=== PATIENT | male | born 1945 | race Caucasian/White ===

== ENCOUNTER 2021-11-17 10:17 | Emergency (ER) | payer OTHER, SELFPAY ==
[2021-11-17 10:23] VITALS: BP 166/90; PULSE 71; RESP 16; TEMP 36.4; O2SAT 100
--- NOTE | 2021-11-17 10:44 | ED.EAR ---
HPI - Ear Problem General Chief complaint: Ear Stated complaint: EAR ACHE Time Seen by Provider: 11/17/21 10:44 Source: patient, RN notes reviewed and old records reviewed Mode of arrival: ambulatory Limitations: no limitations History of Present Illness HPI Narrative: 76-year-old male presents to the [facility] with yellow thick drainage, pain and inflammation to the left ear. Patient states he saw a Dr Ogden last Tuesday at the [place]. States the doctor perforated his ear to drain fluid behind the eardrum. Patient states that 2 to 3 days ago it turned yellow, thick and pain increase. Has been taken ibuprofen. States she tried calling the doctor's office but is only there on Wednesdays and could not wait till tomorrow. Scheduled for a CT for his chronic ear pain on 23 November Denies any fevers, nausea, vomiting. No dizziness or vertigo symptoms. MD Complaint: ear pain and ear discharge Location: left ear Duration: constant Severity: mild Related Data Home Medications Medication Instructions Recorded Confirmed albuterol sulfate 90 mcg/actuation 2 puff INHALATION Q4H gm 12/05/19 09/17/21 aerosol inhaler cholecalciferol (vitamin D3) 25 1,000 unit PO DAILY 12/05/19 09/17/21 mcg (1,000 unit) capsule epinephrine 0.3 mg/0.3 mL 0.3 mg IM ONCE 12/05/19 09/17/21 injection, auto-injector ropinirole 0.5 mg tablet 0.5 mg PO DAILY tablet 12/05/19 09/17/21 cyanocobalamin (vitamin B-12) 1,000 mcg PO DAILY cap 05/04/21 09/17/21 1,000 mcg capsule Zinc 50 mg DAILY 11/17/21 Allergies Allergy/AdvReac Type Severity Reaction Status Date / Time amoxicillin [From Augmentin] Allergy Severe Vomiting Verified 09/18/21 09:56 clavulanic acid Allergy Severe Vomiting Verified 09/18/21 09:56 [From Augmentin] bee pollen Allergy Unknown unknown Verified 09/18/21 09:56 clarithromycin Allergy Unknown uknown Verified 09/18/21 09:56 crab Allergy Unknown Hives Verified 09/18/21 09:56 nut - unspecified Allergy Unknown sesame Verified 09/18/21 09:56 seed oil and nuts sesame oil Allergy Unknown Anaphylactic Verified 09/18/21 09:56 Shock sesame seed Allergy Unknown Anaphylactic Verified 09/18/21 09:56 Shock shellfish derived Allergy Unknown Hives Verified 09/18/21 09:56 Review of Systems Review of Systems: All systems reviewed & are unremarkable except as noted in HPI and below Constitutional: Constitutional: Reports no additional constitutional complaints Eyes: Eyes: Reports no additional eye complaints ENT: Reports as per HPI Comments: Left ear pain Cardiovascular: Cardiovascular: Reports no additional cardiovascular complaints Respiratory: Respiratory: Reports no additional respiratory complaints Gastrointestinal: Gastrointestinal: Reports no additional gastrointestinal complaints Musculoskeletal: Musculoskeletal: Reports no additional musculoskeletal complaints Integumentary/Breasts: Skin/Breast: Reports system reviewed and no additional complaints, except as docu Neurologic: Reports system reviewed and no additional complaints, except as documented Psychiatric: Psychiatric: Reports no additional psychiatric complaints Allergic/Immunologic: Allergic/Immunologic: Reports no additional allergic/immunologic complaints PMF Past Medical History Medical History Hearing loss Hyperlipidemia Hypertension Surgical History Surgical History History of hemorrhoidectomy Family History Family History Mother Carcinoma of colon Father Family history of congestive heart failure Grandparent Diabetes mellitus Other Family history of malignant neoplasm Social History Social History Smoking packs per day: 2 Smoking cigarettes per day: 40.0 Years smoked: 40 Smoking pack-years: 80.00 Smoking status: Fo
== END 2021-11-17 11:07 | disposition home or self-care (01) ==
PROVIDERS: Emergency Provider Nurse Practitioner; PCP Internal Medicine
DX: H66.002 Acute suppurative otitis media without spontaneous rupture of ear drum, left ear (principal); H60.502 Unspecified acute noninfective otitis externa, left ear; Z87.891 Personal history of nicotine dependence; E78.5 Hyperlipidemia, unspecified; I10 Essential (primary) hypertension
CPT/HCPCS: 99213; G0463

== ENCOUNTER 2022-02-16 11:44 | Outpatient (CLI) | payer OTHER, SELFPAY ==
--- NOTE | ~2022-02-16 | XR_ITS ---
EXAMINATION: XR chest 2V EXAM DATE: 02/16/2022 12:00 INDICATION: R05.9 - Cough, Congestion For 7 Days. TECHNIQUE: Frontal and lateral projections of the chest obtained and reviewed. Comparison is made to prior examination from 01/04/2018. FINDINGS: Some scattered postinfectious residua unchanged. The lungs are otherwise clear. There are no pleural effusions. The cardiomediastinal silhouette is within normal limits. There is no pneumo thorax suspected. The bones and soft tissues are unremarkable. IMPRESSION: No acute cardiopulmonary findings. Reviewed, dictated and finalized at location B.
== END 2022-02-16 11:45 | disposition home or self-care (01) ==
LOC: ANHIMG 11:49
PROVIDERS: PCP Internal Medicine; Visit Provider Internal Medicine
DX: R05.9 Cough, unspecified (principal)
CPT/HCPCS: 71046

== ENCOUNTER 2023-02-20 08:42 | Emergency (ER) | payer OTHER, SELFPAY ==
--- NOTE | ~2023-02-20 | XR_ITS ---
EXAMINATION: XR chest 2V DATE: 02/20/2023 09:23 INDICATION: Cough and chest congestion. TECHNIQUE: Frontal and lateral views of the chest were obtained. COMPARISON: Chest 2 views 02/16/2022, chest CT 04/01/2017 FINDINGS: The lungs are hyperexpanded with lucencies, consistent with emphysema. Calcified left lung nodules and calcified mediastinal lymph nodes are consistent with old granulomatous disease. No pleur al effusion or pneumothorax. The heart size is normal. IMPRESSION: 1. Emphysema. Reviewed, dictated and finalized at location A. IMPRESSION: 1. Emphysema.
[2023-02-20 08:58] VITALS: BP 162/75; PULSE 84; RESP 16; TEMP 36.8; O2SAT 96
--- NOTE | 2023-02-20 09:10 | ED.URI ---
HPI - URI/Sore Throat General Chief Complaint: Upper Respiratory Infection Stated Complaint: Sinus/Cough Time Seen by Provider: 02/20/23 09:10 Source: patient Mode of arrival: ambulatory Limitations: no limitations History of Present Illness HPI Narrative: 77-year-old male with history of COPD presents with complaint of cough, nasal congestion for the past week. Reports shortness of breath with exertion. Has been doing home inhalers. States that he is out of his neb solution. Denies nausea vomiting diarrhea. Denies chest pain. Ambulatory with steady gait. Speaking in full sentences. Taking Mucinex and Flonase at home. Reports that he has a lot of postnasal drainage That is not improving with Mucinex. All systems reviewed and negative except as noted above. Related Data Home Medications Medication Instructions Recorded Confirmed cholecalciferol (vitamin D3) 25 1,000 unit PO DAILY 12/05/19 02/20/23 mcg (1,000 unit) capsule epinephrine 0.3 mg/0.3 mL 0.3 mg IM ONCE 12/05/19 02/20/23 injection, auto-injector (EpiPen 2-Gareth) ropinirole 0.5 mg tablet 0.5 mg PO DAILY 12/05/19 02/20/23 Zinc 50 mg DAILY 11/17/21 02/20/23 albuterol sulfate 90 mcg/actuation 2 puff inhalation Q4H PRN 12/16/21 02/20/23 aerosol inhaler (Proventil HFA) Shortness Of Breath Allergies Allergy/AdvReac Type Severity Reaction Status Date / Time amoxicillin [From Augmentin] Allergy Severe Vomiting Verified 02/20/23 09:04 clavulanic acid Allergy Severe Vomiting Verified 02/20/23 09:04 [From Augmentin] bee pollen Allergy Unknown unknown Verified 02/20/23 09:04 clarithromycin Allergy Unknown uknown Verified 02/20/23 09:04 crab Allergy Unknown Hives Verified 02/20/23 09:04 nut - unspecified Allergy Unknown sesame Verified 02/20/23 09:04 seed oil and nuts sesame oil Allergy Unknown Anaphylactic Verified 02/20/23 09:04 Shock sesame seed Allergy Unknown Anaphylactic Verified 02/20/23 09:04 Shock shellfish derived Allergy Unknown Hives Verified 02/20/23 09:04 Review of Systems Review of Systems: CONSTITUTIONAL: Denies fever, chills, or sweats. EYES: Denies visual changes, redness, or discharge. ENT: reports rhinorrhea, congestion, postnasal drainage. Denies sore throat, or otalgia. CARDIOVASCULAR: Denies chest pain, palpitations, or edema. RESPIRATORY: Reports cough and dyspnea on exertion. GASTROINTESTINAL: Denies abdominal pain, nausea, vomiting, or diarrhea. GENITOURINARY: Denies dysuria or hematuria. SKIN: Denies rash or itching. MUSCULOSKELETAL: Denies back pain, joint pain, or myalgia. NEUROLOGIC: Denies headache, numbness, or weakness. PSYCHIATRIC: Denies anxiety or depression. All other systems reviewed are negative, except as documented in HPI. FORMERLY [facility], [facility] Past Medical History Medical History (Updated 02/20/23 @ 10:21 by Linda Little NP) CKD (chronic kidney disease) COPD (chronic obstructive pulmonary disease) Diabetes Hearing loss Hyperlipidemia Hypertension DAPHNE (obstructive sleep apnea) Surgical History Surgical History History of hemorrhoidectomy Family History Family History Mother Carcinoma of colon Father Family history of congestive heart failure Grandparent Diabetes mellitus Other Family history of malignant neoplasm Social History Social History Smoking packs per day: 2 Smoking cigarettes per day: 40.0 Years smoked: 40 Smoking pack-years: 80.00 Smoking status: Former smoker Tobacco type: cigarettes Second hand tobacco smoke exposure: No Smoking end date: 03/21/97 Alcohol intake: current Drinks per week: 3 Substance use: never Substance use type: does not use Lack of Transportation: No Lack of Food: Never True Current Housing: I Have Housing [facility]
[2023-02-20] MEDS: predniSONE 20 MG TABLET 40 MG PO (09:41)
[2023-02-20] MEDS: IPRATROPIUM BR 0.02% INH SOLN 0.5 MG/2.5 ML VIAL INHALATION (09:42)
[2023-02-20] MEDS: ALBUTEROL SULFATE NEB 2.5 MG/3 ML INH INHALATION (09:42)
--- NOTE | 2023-02-20 09:45 | PC.NURSE ---
Breathing teaching started. Educated on use, technique, side effects.
== END 2023-02-20 10:30 | disposition home or self-care (01) ==
PROVIDERS: Emergency Provider Nurse Practitioner Family; PCP Physician Assistant
DX: J44.1 Chronic obstructive pulmonary disease with (acute) exacerbation (principal); Z87.891 Personal history of nicotine dependence; I12.9 Hypertensive chronic kidney disease with stage 1 through stage 4 chronic kidney disease, or unspecified chronic kidney disease; E11.22 Type 2 diabetes mellitus with diabetic chronic kidney disease; N18.9 Chronic kidney disease, unspecified; E78.5 Hyperlipidemia, unspecified; Z79.84 Long term (current) use of oral hypoglycemic drugs
CPT/HCPCS: 71046; 99213; G0463; J7512

== ENCOUNTER 2024-02-13 12:03 | Outpatient (CLI) | payer OTHER, SELFPAY ==
--- NOTE | ~2024-02-13 | XR_ITS ---
EXAMINATION: XR heel LT min 2V INDICATION: Left heel pain TECHNIQUE: Two views of the left calcaneus are obtained. COMPARISON: None available FINDINGS: No fracture, dislocation, or subluxation. A plantar calcaneal enthesophyte is noted. There is mild plantar soft tissue swelling of the foot. Accessory ossicles are noted near the base of the f ifth metatarsal. IMPRESSION: 1. Soft tissue swelling without acute osseous abnormality. Reviewed, dictated and finalized at location F.
== END 2024-02-13 12:04 | disposition home or self-care (01) ==
LOC: ANHIMG 12:05
PROVIDERS: PCP Physician Assistant; Visit Provider Physician Assistant
DX: M79.672 Pain in left foot (principal); M79.89 Other specified soft tissue disorders
CPT/HCPCS: 73650

== ENCOUNTER 2024-05-02 09:47 | Outpatient (CLI) | payer OTHER, SELFPAY ==
--- NOTE | ~2024-05-02 | XR_ITS ---
Clinical Indication: Bronchitis PA and lateral views of the chest: Comparison: 02/20/2023 Findings: Stable calcified left basilar granulomas. The lungs are otherwise clear, without evidence o f focal consolidation or pleural effusion. Stable calcified mediastinal lymph nodes are present. Card iomediastinal silhouette is within normal limits. Bones and soft tissues are unremarkable. Impression: No acute abnormality. Reviewed, dictated and finalized at location . Impression: No acute abnormality.
== END 2024-05-02 09:48 | disposition home or self-care (01) ==
LOC: ANHIMG 09:51
PROVIDERS: PCP Physician Assistant; Visit Provider Internal Medicine
DX: J40 Bronchitis, not specified as acute or chronic (principal)
CPT/HCPCS: 71046

== ENCOUNTER 2024-11-16 12:40 | Inpatient (IN) | payer OTHER, SELFPAY ==
--- NOTE | ~2024-11-16 | XR_ITS ---
XR chest 2V Ordering provider: Bala Wilson History: 79 years Male with . cough, dyspnea . Comparison: May 02, 2024 FINDINGS: MEDIASTINUM: The cardiac silhouette is not enlarged. LUNGS: No infiltrates, effusions or pneumothorax. Underlying emphysematous changes. Minimal atelectat ic changes in the lower lobes. Early pneumonia cannot be excluded. OTHER: No free air under the diaphragm. Degenerative changes of the spine. IMPRESSION: Minimal opacification in the lung bases which may indicate atelectasis. Early pneumonia is not exclud ed. Follow-up advised. Reviewed, dictated and finalized at location [facility] IMPRESSION: Minimal opacification in the lung bases which may indicate atelectasis. Early p neumonia is not excluded. Follow-up advised.
[2024-11-16 12:54] VITALS: BP 134/70; PULSE 93; RESP 20; TEMP 36.8; O2SAT 93
--- NOTE | 2024-11-16 16:03 | ED_ITS ---
HPI - SOB/Dyspnea General Chief Complaint: Shortness of Breath/Dyspnea <Bala Wilson PA-C - Last Filed: 11/16/24 16:30> Stated Complaint: sob, cough <Bala Wilson PA-C - Last Filed: 11/16/24 16:30> Time Seen by Provider: 11/16/24 23:12 <Bala Wilson PA-C - Last Filed: 11/16/24 16:30> Focused HPI: This is an 79-year-old male who presents to the ED for possible COPD exacerbation. Patient reports that he has had increased cough over the past few days and it is productive. Reports that he is getting little bit more winded when up and walking however he is able to make it across the room okay. Denies chest pain, leg swelling, palpitations, nausea, vomiting. Endorses chills but no recorded fevers. He did take a dose of Tylenol prior to arrival. States he has been taking his albuterol nebulizer as prescribed at home. No recent antibiotics GENERAL: Well-appearing, well-nourished, and in no acute distress. HEAD: Normocephalic, atraumatic. CHEST: Diffuse wheezes and rhonchi noted throughout the lungs. No overt respiratory distress. HEART: Regular rate and rhythm. NEURO: Alert and oriented x3. Patient screened in triage and initial orders placed. Additional care and disposition to be based upon diagnostic testing and treatment. <Bala Wilson PA-C - Last Filed: 11/16/24 16:30> Source: patient <Bala Wilson PA-C - Last Filed: 11/16/24 16:30> Mode of arrival: ambulatory <Bala Wilson PA-C - Last Filed: 11/16/24 16:30> Limitations: no limitations <UNIQUE Shen Last Filed: 11/16/24 16:30> History of Present Illness HPI Narrative: Agree with above HPI. <Iris Méndez PA-C - Last Filed: 11/17/24 02:46> Related Data Home Medications: Home Medications ?Medication ?Instructions ?Recorded ?Confirmed ?Last Taken ?Type cholecalciferol (vitamin D3) 25 1,000 unit PO DAILY 12/05/19 07/06/24 Unknown History mcg (1,000 unit) capsule epinephrine 0.3 mg/0.3 mL 0.3 mg IM ONCE 12/05/19 07/06/24 Unknown History injection, auto-injector (EpiPen 2-Gareth) ropinirole 0.5 mg tablet 0.5 mg PO DAILY 12/05/19 07/06/24 Unknown History Zinc 50 mg DAILY 11/17/21 07/06/24 Unknown History albuterol sulfate 90 mcg/actuation 2 puff inhalation Q4H PRN 12/16/21 07/06/24 Unknown History aerosol inhaler (Proventil HFA) Shortness Of Breath <Bala Wilson PA-C - Last Filed: 11/16/24 16:30> Allergies/Adverse Reactions: Allergies Allergy/AdvReac Type Severity Reaction Status Date / Time amoxicillin (From Augmentin) Allergy Severe Vomiting Verified 07/06/24 07:30 clavulanic acid (From Allergy Severe Vomiting Verified 07/06/24 07:30 Augmentin) bee pollen Allergy Unknown unknown Verified 07/06/24 07:30 clarithromycin Allergy Unknown uknown Verified 07/06/24 07:30 crab Allergy Unknown Hives Verified 07/06/24 07:30 nut - unspecified Allergy Unknown sesame Verified 07/06/24 07:30 seed oil and nuts sesame oil Allergy Unknown Anaphylactic Verified 07/06/24 07:30 Shock sesame seed Allergy Unknown Anaphylactic Verified 07/06/24 07:30 Shock shellfish derived Allergy Unknown Hives Verified 07/06/24 07:30 <Bala Wilson PA-C - Last Filed: 11/16/24 16:30> Review of Systems 2 Review of Systems: All systems reviewed & are unremarkable except as noted in HPI. <Iris Méndez PA-C - Last Filed: 11/17/24 02:46> All systems reviewed & are unremarkable except as noted in HPI and below < Iris Méndez PA-C - Last Filed: 11/17/24 02:46> PMFSH Past Medical History Medical History: Medical History Hearing loss Hyperlipidemia Hypertension Diabetes CKD (chronic kidney disease) DAPHNE (obstructive sleep apnea) COPD (chronic obstructive pulmonary disease) <Bala Wilson PA-C - Last Filed: 11/16/24 16:30> Surgical History Surgical History: Surgical History History of hemorrhoidectomy <Bala Wilson PA-C - Last Filed: 11/16/24 16:30> Family History Family History: Family History Mother Carcinoma of colon Father Family history of congestive heart failure Grandparent Diabetes mellitus Other Family history of malignant neoplasm <Bala Wilson PA-C - Last Filed: 11/16/24 16:30> Social History Social History: Social History Smoking packs per day: 2 Smoking cigarettes per day: 40.0 Years smoked: 40 Smoking pack-years: 80.00 Smoking status: Former smoker Tobacco type: cigarettes Second hand tobacco smoke exposure: No Smoking end date: 03/21/97 Alcohol intake: current Drinks per week: 3 Substance use: never Substance use type: does not use Lack of Transportation: No Lack of Food: Never True Current Housing: Decline to Answer Concerned About Future Housing: Decline to Answer Difficulty Paying Gas/Electric Bills: Decline to Answer Difficulty Paying for Meds: Decline to Answer Currently Unemployed: Decline to Answer Education: Decline to Answer Difficulty w/ Childcare or Family Care: Decline to Answer Living arrangements: with family Gender identity (if verbalized by the patient): Male <Bala Wilson PA-C - Last Filed: 11/16/24 16:30> Exam 2 Narrative: GENERAL: Elderly, mild ill appearing, well-nourished, non-toxic, in no acute distress. HEAD: Normocephalic, atraumatic. RESPIRATORY: Airway patent, respirations mildly tachypneic but no significant distress. Scattered rhonchi in bases manfred. Diffuse exp wheezing bilaterally, worse in R mid lung zone. CARDIOVASCULAR: Tachycardic with rhythm without murmurs, rubs, or gallops. MUSCULOSKELETAL: Moves all extremities. No gross deformities. Trace peripheral edema. No calf tenderness. SKIN: Warm, dry, normal color. NEURO: A&O X3. Speech clear. Cranial nerves II-XII grossly intact. Steady gait. No ataxic movements. PSYCHIATRIC: Appropriate mood and affect. Normal interaction. <UNIQUE Guthrie Last Filed: 11/17/24 02:46> Course Vital Signs Vital signs: Vital Signs Temperature 98.3 F 11/16/24 12:54 Pulse Rate 93 11/16/24 12:54 Respiratory Rate 20 11/16/24 12:54 Blood Pressure 134/70 11/16/24 12:54 Pulse Oximetry 93 11/16/24 12:54 Oxygen Delivery Room Air 11/16/24 12:54 Temperature 98.3 F 11/16/24 12:54 Pulse Rate 101 H 11/17/24 01:32 Respiratory Rate 18 11/17/24 01:32 Blood Pressure 171/93 H 11/17/24 00:04 Pulse Oximetry 90 11/17/24 00:04 Oxygen Delivery Nasal Cannula 11/17/24 00:04 Oxygen Flow Rate 2 11/17/24 00:04 <UNIQUE Shen Last Filed: 11/16/24 16:30> Vital Signs Temperature 98.3 F 11/16/24 12:54 Pulse Rate 93 11/16/24 12:54 Respiratory Rate 20 11/16/24 12:54 Blood Pressure 134/70 11/16/24 12:54 Pulse Oximetry 93 11/16/24 12:54 Oxygen Delivery Room Air 11/16/24 12:54 Temperature 98.3 F 11/16/24 12:54 Pulse Rate 101 H 11/17/24 01:32 Respiratory Rate 18 11/17/24 01:32 Blood Pressure 171/93 H 11/17/24 00:04 Pulse Oximetry 90 11/17/24 00:04 Oxygen Delivery Nasal Cannula 11/17/24 00:04 Oxygen Flow Rate 2 11/17/24 00:04 <UNIQUE Guthrie Last Filed: 11/17/24 02:46> MDM - SOB/Dyspnea MDM Narrative Medical decision making narrative: Patient presented to ED with several day history of productive cough, drainage, shortness of breath. Patient's vitals were stable upon arrival. Upon being walked back to the ED room from the waiting room, patient's oxygen saturation did drop significantly. He was saturating in the low 80s on room air. Placed on 2 L nasal cannula. He did admit to feeling very winded. O2 sats stabilized to 93-95% on 2L. Laboratory studies without leukocytosis. Stable electrolytes. Sodium slightly low at 133. Given fluids. Creatinine today 1.4. Appears consistent with previous records. Viral swabs are negative. EKG with sinus tachycardia, right bundle-branch block, no significant ST changes. Troponin is undetectable. Patient denying CP. BNP within normal range. D-dimer is age adjusted normal. Chest x-ray consistent with possible early pneumonia. I do feel this fits with patient's clinical picture. Blood cultures obtained. Patient started on Rocephin and azithromycin. He has tolerated Z-Gareth in the past. Was also given Solu-Medrol and hour long nebulizer treatment in the ED for likely concurrent COPD flare. Will be admitted for further evaluation and management. Discussed case with Dr. Toribio, hospitalist, accepted patient for admission. Patient in agreement with plan and need for admission. Med/tele, will continue to titrate down O2 as tolerated. <Iris Méndez PA-C - Last Filed: 11/17/24 02:46> Medical Records Attestation: I reviewed the patient's medical records. <Iris Méndez PA-C - Last Filed: 11/17/24 02:46> Lab Data Attestation: I reviewed the patient's lab results. <Iris Méndez PA-C - Last Filed: 11/17/24 02:46> Result diagrams: 11/16/24 18:49 11/16/24 18:49 <Bala Wilson PA-C - Last Filed: 11/16/24 16:30> Labs: Lab Results 11/16/24 11/16/24 11/16/24 Range/Units 18:49 18:49 18:49 WBC 6.2 (4.5-10.0) K/mm3 RBC 4.29 L (4.6-6.20) M/mm3 Hgb 12.3 L (14.0-18.0) g/dL Hct 38.3 L (42.0-52.0) % MCV 89.3 (80-100) fl MCH 28.7 (26-34) pg MCHC 32.1 (32-36) g/dl RDW 13.2 (11.5-14.5) % Plt Count 155 (150-375) k/mm3 MPV 9.2 (7.4-10.4) fl Immature Gran % (Auto) 0.5 (0-0.5) % Neut % (Auto) 64.8 (45.5-73.1) % Lymph % (Auto) 18.7 (18.3-44.2) % Hartley % (Auto) 14.4 H (2.6-8.5) % Eos % (Auto) 1.0 (0-4.4) % Baso % (Auto) 0.6 (0.2-1.2) % Lymph # (Auto) 1.16 (0.9-3.2) K/mm3 Hartley # (Auto) 0.9 H (0.1-0.6) K/mm3 Eos # (Auto) 0.1 (0-0.3) K/mm3 Baso # (Auto) 0.0 (0.0-0.1) K/mm3 Abs Immat Gran (auto) 0.03 (0.00-0.031) K/mm3 Absolute Neuts (auto) 4.0 (1.3-6.7) K/mm3 Absolute Nucleated RBC 0.000 (0.0-0.012) K/mm3 Nucleated RBC % 0.0 (0.0-0.2) % PT 14.6 (11.1-14.7) Seconds INR 1.1 APTT 25.3 (22.3-36.8) Seconds D-Dimer (<0.48) ug/mL Sodium 133 L (137-145) mmol/L Potassium 3.7 (3.4-5.0) mmol/L Chloride 99 (98-107) mmol/L Carbon Dioxide 32 H (22-30) mmol/L Anion Gap 2 L (4-12) mmol/L BUN 21 H (9-20) mg/dL Creatinine 1.40 H (0.7-1.3) mg/dL Estim Creat Clear Calc 39 ml/min Estimated GFR 49 L (59 - ) Glucose 112 H (65-110) mg/dL Calcium 8.6 (8.4-10.2) mg/dL Magnesium 2.2 Cancelled (1.6-2.3) mg/dL Total Bilirubin 0.7 (0.2-1.3) mg/dL AST 50 (17-59) U/L ALT 23 (6-50) U/L Alkaline Phosphatase 67 (38-126) U/L Troponin I < 0.012 Cancelled (0.000-0.034) ng/mL NT-Pro-B Natriuret Pep 167 H (19.9-100) pg/mL Total Protein 7.0 (6.3-8.2) g/dL Albumin 4.1 (3.5-5.1) g/dL Influenza A (RT-PCR) Negative (Negative) Influenza B (RT-PCR) Negative (Negative) RSV (RT-PCR) Negative (Negative) SARS-CoV-2 RNA (RT-PCR) Negative (Negative) 11/17/24 Range/Units 00:36 WBC (4.5-10.0) K/mm3 RBC (4.6-6.20) M/mm3 Hgb (14.0-18.0) g/dL Hct (42.0-52.0) % MCV (80-100) fl MCH (26-34) pg MCHC (32-36) g/dl RDW (11.5-14.5) % Plt Count (150-375) k/mm3 MPV (7.4-10.4) fl Immature Gran % (Auto) (0-0.5) % Neut % (Auto) (45.5-73.1) % Lymph % (Auto) (18.3-44.2) % Hartley % (Auto) (2.6-8.5) % Eos % (Auto) (0-4.4) % Baso % (Auto) (0.2-1.2) % Lymph # (Auto) (0.9-3.2) K/mm3 Hartley # (Auto) (0.1-0.6) K/mm3 Eos # (Auto) (0-0.3) K/mm3 Baso # (Auto) (0.0-0.1) K/mm3 Abs Immat Gran (auto) (0.00-0.031) K/mm3 Absolute Neuts (auto) (1.3-6.7) K/mm3 Absolute Nucleated RBC (0.0-0.012) K/mm3 Nucleated RBC % (0.0-0.2) % PT (11.1-14.7) Seconds INR APTT (22.3-36.8) Seconds D-Dimer 0.54 H (<0.48) ug/mL Sodium (137-145) mmol/L Potassium (3.4-5.0) mmol/L Chloride (98-107) mmol/L Carbon Dioxide (22-30) mmol/L Anion Gap (4-12) mmol/L BUN (9-20) mg/dL Creatinine (0.7-1.3) mg/dL Estim Creat Clear Calc ml/min Estimated GFR (59 - ) Glucose (65-110) mg/dL Calcium (8.4-10.2) mg/dL Magnesium (1.6-2.3) mg/dL Total Bilirubin (0.2-1.3) mg/dL AST (17-59) U/L ALT (6-50) U/L Alkaline Phosphatase (38-126) U/L Troponin I (0.000-0.034) ng/mL NT-Pro-B Natriuret Pep (19.9-100) pg/mL Total Protein (6.3-8.2) g/dL Albumin (3.5-5.1) g/dL Influenza A (RT-PCR) (Negative) Influenza B (RT-PCR) (Negative) RSV (RT-PCR) (Negative) SARS-CoV-2 RNA (RT-PCR) (Negative) <Blaa Wilson PA-C - Last Filed: 11/16/24 16:30> Lab Results 11/16/24 11/16/24 11/16/24 Range/Units 18:49 18:49 18:49 WBC 6.2 (4.5-10.0) K/mm3 RBC 4.29 L (4.6-6.20) M/mm3 Hgb 12.3 L (14.0-18.0) g/dL Hct 38.3 L (42.0-52.0) % MCV 89.3 (80-100) fl MCH 28.7 (26-34) pg MCHC 32.1 (32-36) g/dl RDW 13.2 (11.5-14.5) % Plt Count 155 (150-375) k/mm3 MPV 9.2 (7.4-10.4) fl Immature Gran % (Auto) 0.5 (0-0.5) % Neut % (Auto) 64.8 (45.5-73.1) % Lymph % (Auto) 18.7 (18.3-44.2) % Hartley % (Auto) 14.4 H (2.6-8.5) % Eos % (Auto) 1.0 (0-4.4) % Baso % (Auto) 0.6 (0.2-1.2) % Lymph # (Auto) 1.16 (0.9-3.2) K/mm3 Hartley # (Auto) 0.9 H (0.1-0.6) K/mm3 Eos # (Auto) 0.1 (0-0.3) K/mm3 Baso # (Auto) 0.0 (0.0-0.1) K/mm3 Abs Immat Gran (auto) 0.03 (0.00-0.031) K/mm3 Absolute Neuts (auto) 4.0 (1.3-6.7) K/mm3 Absolute Nucleated RBC 0.000 (0.0-0.012) K/mm3 Nucleated RBC % 0.0 (0.0-0.2) % PT 14.6 (11.1-14.7) Seconds INR 1.1 APTT 25.3 (22.3-36.8) Seconds D-Dimer (<0.48) ug/mL Sodium 133 L (137-145) mmol/L Potassium 3.7 (3.4-5.0) mmol/L Chloride 99 (98-107) mmol/L Carbon Dioxide 32 H (22-30) mmol/L Anion Gap 2 L (4-12) mmol/L BUN 21 H (9-20) mg/dL Creatinine 1.40 H (0.7-1.3) mg/dL Estim Creat Clear Calc 39 ml/min Estimated GFR 49 L (59 - ) Glucose 112 H (65-110) mg/dL Calcium 8.6 (8.4-10.2) mg/dL Magnesium 2.2 Cancelled (1.6-2.3) mg/dL Total Bilirubin 0.7 (0.2-1.3) mg/dL AST 50 (17-59) U/L ALT 23 (6-50) U/L Alkaline Phosphatase 67 (38-126) U/L Troponin I < 0.012 Cancelled (0.000-0.034) ng/mL NT-Pro-B Natriuret Pep 167 H (19.9-100) pg/mL Total Protein 7.0 (6.3-8.2) g/dL Albumin 4.1 (3.5-5.1) g/dL Influenza A (RT-PCR) Negative (Negative) Influenza B (RT-PCR) Negative (Negative) RSV (RT-PCR) Negative (Negative) SARS-CoV-2 RNA (RT-PCR) Negative (Negative) 11/17/24 Range/Units 00:36 WBC (4.5-10.0) K/mm3 RBC (4.6-6.20) M/mm3 Hgb (14.0-18.0) g/dL Hct (42.0-52.0) % MCV (80-100) fl MCH (26-34) pg MCHC (32-36) g/dl RDW (11.5-14.5) % Plt Count (150-375) k/mm3 MPV (7.4-10.4) fl Immature Gran % (Auto) (0-0.5) % Neut % (Auto) (45.5-73.1) % Lymph % (Auto) (18.3-44.2) % Hartley % (Auto) (2.6-8.5) % Eos % (Auto) (0-4.4) % Baso % (Auto) (0.2-1.2) % Lymph # (Auto) (0.9-3.2) K/mm3 Hartley # (Auto) (0.1-0.6) K/mm3 Eos # (Auto) (0-0.3) K/mm3 Baso # (Auto) (0.0-0.1) K/mm3 Abs Immat Gran (auto) (0.00-0.031) K/mm3 Absolute Neuts (auto) (1.3-6.7) K/mm3 Absolute Nucleated RBC (0.0-0.012) K/mm3 Nucleated RBC % (0.0-0.2) % PT (11.1-14.7) Seconds INR APTT (22.3-36.8) Seconds D-Dimer 0.54 H (<0.48) ug/mL Sodium (137-145) mmol/L Potassium (3.4-5.0) mmol/L Chloride (98-107) mmol/L Carbon Dioxide (22-30) mmol/L Anion Gap (4-12) mmol/L BUN (9-20) mg/dL Creatinine (0.7-1.3) mg/dL Estim Creat Clear Calc ml/min Estimated GFR (59 - ) Glucose (65-110) mg/dL Calcium (8.4-10.2) mg/dL Magnesium (1.6-2.3) mg/dL Total Bilirubin (0.2-1.3) mg/dL AST (17-59) U/L ALT (6-50) U/L Alkaline Phosphatase (38-126) U/L Troponin I (0.000-0.034) ng/mL NT-Pro-B Natriuret Pep (19.9-100) pg/mL Total Protein (6.3-8.2) g/dL Albumin (3.5-5.1) g/dL Influenza A (RT-PCR) (Negative) Influenza B (RT-PCR) (Negative) RSV (RT-PCR) (Negative) SARS-CoV-2 RNA (RT-PCR) (Negative) <Iris Méndez PA-C - Last Filed: 11/17/24 02:46> Imaging Data Attestation: I personally reviewed and interpreted this imaging study as follows: < Iris Méndez PA-C - Last Filed: 11/17/24 02:46> Radiologist's impression: ITS Impressions Chest X-Ray 11/16/24 17:00 IMPRESSION: Minimal opacification in the lung bases which may indicate atelectasis. Early pneumonia is not excluded. Follow-up advised. <Iris Méndez PA-C - Last Filed: 11/17/24 02:46> ECG Data EKG #1: Attestation: I personally reviewed and interpreted this ECG as follows: <Iris Méndez PA-C - Last Filed: 11/17/24 02:46> ECG completion date: 11/16/24 <UNIQUE Guthrie Last Filed: 11/17/24 02:46> ECG completion time: 23:30 <UNIQUE Guthrie Last Filed: 11/17/24 02:46> EKG Interpretation: tachycardia (103), sinus rhythm, non-specific ST changes and RBBB < UNIQUE Guthrie Last Filed: 11/17/24 02:46> Discharge Plan Discharge Clinical Impression: Pneumonia, Acute hypoxic respiratory failure, Acute exacerbation of chronic obstructive pulmonary disease (COPD) <UNIQUE Shen Last Filed: 11/16/24 16:30> Patient Disposition: Still a Patient <UNIQUE Shen Last Filed: 11/16/24 16:30> Condition: Stable <UNIQUE Shen Last Filed: 11/16/24 16:30> Patient Language: Honduran <UNIQUE Shen Last Filed: 11/16/24 16:30> Prescriptions: No Action Zinc 50 mg DAILY albuterol sulfate 2.5 mg /3 mL (0.083 %) solution for nebulization 2.5 mg inhalation Q6H PRN (Reason: shortness of breath or wheezing) Qty: 75 0RF ropinirole 0.5 mg tablet 0.5 mg PO DAILY epinephrine [EpiPen 2-Gareth] 0.3 mg/0.3 mL auto-injector 0.3 mg IM ONCE Rx Instructions: as a single dose cholecalciferol (vitamin D3) 25 mcg (1,000 unit) capsule 1,000 unit PO DAILY albuterol sulfate [Proventil HFA] 90 mcg/actuation HFA aerosol inhaler 2 puff INHALATION Q4H PRN (Reason: Shortness Of Breath) fluticasone propion-salmeterol [Wixela Inhub] 250-50 mcg/dose blister with device 1 inh inhalation BID Qty: 60 0RF levothyroxine 50 mcg tablet 50 mcg PO DAILY Qty: 90 1RF hydrochlorothiazide 25 mg tablet 25 mg PO DAILY Qty: 90 1RF metformin 500 mg tablet See Rx Instructions .ROUTE .COMPLEX Qty: 180 1RF Dose Instruction: TAKE 1 TABLET BY MOUTH TWICE A DAY WITH MORNING AND EVENING MEALS Rx Instructions: TAKE 1 TABLET BY MOUTH TWICE A DAY WITH MORNING AND EVENING MEALS lovastatin 20 mg tablet See Rx Instructions .ROUTE .COMPLEX Qty: 90 2RF Dose Instruction: TAKE 1 TABLET BY MOUTH EVERY DAY IN THE EVENING Rx Instructions: TAKE 1 TABLET BY MOUTH EVERY DAY IN THE EVENING <Bala Wilson PA-C - Last Filed: 11/16/24 16:30> Follow-up/Referrals: Shreya,Teodoro Smiley PA-C [Primary Care Provider] - <Bala Wilson PA-C - Last Filed: 11/16/24 16:30>
--- NOTE | 2024-11-16 16:04 | ECG_ITS ---
Test Date: 2024-11-16 23:30:03 Measurements Intervals [place] Rate: 103 P: 71 ND: 184 QRS: 11 QRSD: 138 T: 42 QT: 344 QTc: 451 Interpretive Statements SINUS TACHYCARDIA RIGHT BUNDLE BRANCH BLOCK [120+ ms QRS DURATION, UPRIGHT V1, 40+ ms S IN I/aVL/V4/V5/V6] ABNORMAL ECG Electronically Signed On 11-17-2024 08:29:50 MULTI NEEDLE MACHINE OPERATOR by Heladio Pennington M.D.
[2024-11-16 18:57] LABS: Basophils Percent Auto 0.6 % (0.2-1.2); Eosinophils Absolute Auto 0.1 K/mm3 (0-0.3); Hematocrit 38.3 % (42.0-52.0); Hemoglobin 12.3 g/dL (14.0-18.0); Immature Granulocyte Absolute 0.03 K/mm3 (0.00-0.031); Immature Granulocyte Percent A 0.5 % (0-0.5); Lymphocytes Absolute Auto 1.16 K/mm3 (0.9-3.2); Lymphocytes Percent Auto 18.7 % (18.3-44.2); Mean Corpuscular HGB Conc 32.1 g/dl (32-36); Mean Corpuscular Hemoglobin 28.7 pg (26-34); Mean Corpuscular Volume 89.3 fl (80-100); Mean Platelet Volume 9.2 fl (7.4-10.4); Monocytes Absolute Auto 0.9 K/mm3 (0.1-0.6); Monocytes Percent Auto 14.4 % (2.6-8.5); Neutrophils Percent Auto 64.8 % (45.5-73.1); Platelet Count Result 155 k/mm3 (150-375); Red Blood Count 4.29 M/mm3 (4.6-6.20); Red Cell Distribution Width 13.2 % (11.5-14.5); White Blood Count 6.2 K/mm3 (4.5-10.0)
[2024-11-16 19:09] LABS: Alanine Aminotransferase 23 U/L (6-50); Albumin Level 4.1 g/dL (3.5-5.1); Alkaline Phosphatase 67 U/L (38-126); Anion Gap 2 mmol/L (4-12); Aspartate Amino Transferase 50 U/L (17-59); Bilirubin,Total 0.7 mg/dL (0.2-1.3); Blood Urea Nitrogen 21 mg/dL (9-20); Calcium 8.6 mg/dL (8.4-10.2); Carbon Dioxide 32 mmol/L (22-30); Chloride 99 mmol/L (98-107); Estimated CRCL calculation 39 ml/min; Estimated Glomerular Filt Rate 49; Glucose 112 mg/dL (65-110); Magnesium 2.2 mg/dL (1.6-2.3); Potassium 3.7 mmol/L (3.4-5.0); Sodium 133 mmol/L (137-145)
[2024-11-16 19:11] LABS: INR 1.1; Prothrombin Time 14.6 Seconds (11.1-14.7)
[2024-11-16 19:12] LABS: Partial Thromboplastin Time 25.3 Seconds (22.3-36.8)
[2024-11-16 19:20] LABS: NT Pro B Type Natriuretic Pept 167 pg/mL (19.9-100); Troponin I < 0.012 ng/mL (0.000-0.034)
[2024-11-16 19:44] LABS: Influenza A QL RT-PCR Negative (Negative); Influenza B QL RT-PCR Negative (Negative); RSV RNA, RT-PCR Negative (Negative); SARS-CoV-2 RNA PCR Negative (Negative)
[2024-11-16 23:16] VITALS: BP 179/85; PULSE 104; RESP 8; O2SAT 91
[2024-11-17] VITALS (31 sets, daily range): BP systolic 118–171; BP diastolic 59–93; PULSE 94–122; RESP 11–25; TEMP 36.7–37; O2SAT 84–100; BMI 26.4
[2024-11-17] MEDS: LEVALBUTEROL NEB 1.25 MG/3 ML 2.5 MG INHALATION (00:20)
[2024-11-17] MEDS: IPRATROPIUM BR 0.02% INH SOLN 0.5 MG/2.5 ML VIAL 1.5 MG INHALATION (00:20)
[2024-11-17] MEDS: SODIUM CHLORIDE 0.9% IV 1,000 ML 999 ML IV CONT (00:38)
[2024-11-17] MEDS: methylPREDNISolone SOD SUCC 125 MG VIAL IV PUSH (00:39)
[2024-11-17 01:13] LABS: D Dimer 0.54 ug/mL (<0.48)
[2024-11-17] MEDS: AZITHROMYCIN 500 MG/NS 250 ML 500 MG/250 ML BAG 250 MG IVPB ×2 (02:04→20:54)
--- NOTE | 2024-11-17 02:41 | PM.IMHP ---
H&P: HPI History of Present Illness Date/Time: 11/17/24 02:41 Chief Complaint: Shortness of breath Narrative: This is an 79-year-old male with past medical history significant for COPD/emphysema, chronic respiratory failure, type 2 diabetes mellitus, hypertension, obstructive sleep apnea patient is on CPAP at nighttime. Patient presents to the emergency room due to worsening shortness of breath, sputum production, chills. Preliminary workup was significant for chest x-ray with opacifications. Patient has been admitted for further evaluation management and treatment. XR chest 2V Ordering provider: Bala Wilson History: 79 years Male with . cough, dyspnea . Comparison: May 02, 2024 FINDINGS: MEDIASTINUM: The cardiac silhouette is not enlarged. LUNGS: No infiltrates, effusions or pneumothorax. Underlying emphysematous changes. Minimal atelectatic changes in the lower lobes. Early pneumonia cannot be excluded. OTHER: No free air under the diaphragm. Degenerative changes of the spine. IMPRESSION: Minimal opacification in the lung bases which may indicate atelectasis. Early pneumonia is not excluded. Follow-up advised. Review of Systems Review of Systems: Shortness of breath, wheezing, chills. FOR[facility]LY [facility] Past Medical History Medical History Hearing loss Hyperlipidemia Hypertension Diabetes CKD (chronic kidney disease) DAPHEN (obstructive sleep apnea) COPD (chronic obstructive pulmonary disease) Surgical History Surgical History History of hemorrhoidectomy Family History Family History Mother Carcinoma of colon Father Family history of congestive heart failure Grandparent Diabetes mellitus Other Family history of malignant neoplasm Social History Social History Smoking packs per day: 2 Smoking cigarettes per day: 40.0 Years smoked: 40 Smoking pack-years: 80.00 Smoking status: Former smoker Tobacco type: cigarettes Second hand tobacco smoke exposure: No Smoking end date: 03/21/97 Alcohol intake: current Drinks per week: 3 Substance use: never Substance use type: does not use Lack of Transportation: No Lack of Food: Never True Current Housing: Decline to Answer Concerned About Future Housing: Decline to Answer Difficulty Paying Gas/Electric Bills: Decline to Answer Difficulty Paying for Meds: Decline to Answer Currently Unemployed: Decline to Answer Education: Decline to Answer Difficulty w/ Childcare or Family Care: Decline to Answer Living arrangements: with family Gender identity (if verbalized by the patient): Male Meds Home Medications and Allergies Home Medications ?Medication ?Instructions ?Recorded ?Confirmed ?Type cholecalciferol (vitamin D3) 25 1,000 unit PO DAILY 12/05/19 07/06/24 History mcg (1,000 unit) capsule epinephrine 0.3 mg/0.3 mL 0.3 mg IM ONCE 12/05/19 07/06/24 History injection, auto-injector (EpiPen 2-Gareth) ropinirole 0.5 mg tablet 0.5 mg PO DAILY 12/05/19 07/06/24 History Zinc 50 mg DAILY 11/17/21 07/06/24 History albuterol sulfate 90 mcg/actuation 2 puff inhalation Q4H PRN 12/16/21 07/06/24 History aerosol inhaler (Proventil HFA) Shortness Of Breath fluticasone 250 mcg-salmeterol 50 1 inh inhalation BID #60 ea 04/20/22 07/06/24 Rx mcg/dose blistr powdr for inhalation (Wixela Inhub) albuterol sulfate 2.5 mg/3 mL 2.5 mg (3 mL) inhalation Q6H PRN 05/18/24 07/06/24 Rx (0.083 %) solution for nebulization shortness of breath or wheezing #75 mL hydrochlorothiazide 25 mg tablet 25 mg PO DAILY #90 tabs 06/21/24 07/06/24 Rx levothyroxine 50 mcg tablet 50 mcg PO DAILY #90 tabs 06/21/24 07/06/24 Rx metformin 500 mg tablet See Rx Instructions .Route 09/12/24 Rx .COMPLEX #180 tabs lovastatin 20 mg tablet See Rx Instructions .Route 11/07/24 Rx .COMPLEX #90 tabs Allergies Allergy/AdvReac Type Severity Reaction Status Date / Time amoxicillin (From Augmentin) Allergy Severe Vomiting Verified 07/06/24 07:30 clavulanic acid (From Allergy Severe Vomiting Verified 07/06/24 07:30 Augmentin) bee pollen Allergy Unknown unknown Verified 07/06/24 07:30 clarithromycin Allergy Unknown uknown Verified 07/06/24 07:30 crab Allergy Unknown Hives Verified 07/06/24 07:30 nut - unspecified Allergy Unknown sesame Verified 07/06/24 07:30 seed oil and nuts sesame oil Allergy Unknown Anaphylactic Verified 07/06/24 07:30 Shock sesame seed Allergy Unknown Anaphylactic Verified 07/06/24 07:30 Shock shellfish derived Allergy Unknown Hives Verified 07/06/24 07:30 Vital Signs Vital Signs - 24 hr 11/16/24 12:54 11/17/24 00:04 11/17/24 00:04 Temperature 98.3 F Pulse Rate 93 111 H 120 H Respiratory Rate 20 16 Blood Pressure 134/70 171/93 H Pulse Oximetry 93 92 Oxygen Delivery Room Air Nasal Cannula Oxygen Flow Rate 2 11/17/24 00:04 11/17/24 00:21 11/17/24 01:32 Temperature Pulse Rate 106 H 101 H Respiratory Rate 16 18 Blood Pressure Pulse Oximetry 90 Oxygen Delivery Nasal Cannula Oxygen Flow Rate 2 11/17/24 02:25 Temperature Pulse Rate 115 H Respiratory Rate 16 Blood Pressure 157/78 H Pulse Oximetry 91 Oxygen Delivery Oxygen Flow Rate Exam Narrative: Patient is sitting in a stretcher Const: General: comfortable, no acute distress, well developed, alert, awake and average body habitus Nutritional Appearance: average body habitus Orientation/consciousness: patient oriented x3 Other: On supplemental oxygen by nasal cannula HENMT: Head: normal to inspection, normocephalic and atraumatic Ears: hearing grossly normal bilaterally Face/Nose/Sinus: normal facial exam Face and sinus: normal facial exam Eyes: General: appearance normal, both eyes and all related structures Pupils: Equal, round and reactive pupils present EOM: EOMs intact bilaterally Neck: Neck: full ROM, no lymphadenopathy and no JVD Thyroid: thyroid normal Lymphatic: no lymphadenopathy noted Resp: Effort & Inspection: normal respiratory effort and able to speak in complete sentences Auscultation: clear to auscultation bilaterally Cardio: Jugular venous distension: no JVD Rate: regular rate Rhythm: regular rhythm Heart sounds: S1 normal heart sound present and S2 normal heart sound present GI: GI Palp: Yes Soft to palpation and Yes No hepatosplenomegaly present : General: Yes deferred Skin: Rashes: no rashes Wounds: no wounds Neuro: General: patient oriented x3 and CN's II-XI intact bilaterally Cranial nerves: Yes CN's II-XII intact bilaterally and Yes Equal, round and reactive pupils present Cognition (Neuro): normal cognition Speech: normal speech Gait exam (Neuro): Normal gait present Motor exam (neuro): 5/5 motor strength present throughout Extrem: General: normal to inspection, full ROM, no joint enlargement and no pedal edema H&P: Results Labs Labs: Short CBC 11/16/24 Range/Units 18:49 WBC 6.2 (4.5-10.0) K/mm3 Hgb 12.3 L (14.0-18.0) g/dL Hct 38.3 L (42.0-52.0) % Plt Count 155 (150-375) k/mm3 BMP 11/16/24 18:49 Sodium 133 L Potassium 3.7 Chloride 99 Carbon Dioxide 32 H BUN 21 H Creatinine 1.40 H Glucose 112 H Calcium 8.6 Cardiac Enzymes 11/16/24 11/16/24 Range/Units 18:49 18:49 Troponin I < 0.012 Cancelled (0.000-0.034) ng/mL Liver Function 11/16/24 Range/Units 18:49 Total Bilirubin 0.7 (0.2-1.3) mg/dL AST 50 (17-59) U/L ALT 23 (6-50) U/L Alkaline Phosphatase 67 (38-126) U/L Albumin 4.1 (3.5-5.1) g/dL Assessment and Plan Assessment and plan (1) Acute exacerbation of chronic obstructive pulmonary disease (COPD): Code(s): J44.1 - Chronic obstructive pulmonary disease with (acute) exacerbation Status: Acute Assessment and Plan: Admit to [facility] tele Patient on a scheduled breathing treatments Started on prednisone 60 p.o. daily Started on Rocephin and Zithromax (2) Acute hypoxic respiratory failure: Code(s): J96.01 - Acute respiratory failure with hypoxia Status: Acute Assessment and Plan: On 2 L of oxygen by nasal cannula Continue to monitor (3) Essential hypertension: Code(s): I10 - Essential (primary) hypertension Status: Acute Assessment and Plan: Resume home meds Continue to monitor (4) Mixed hyperlipidemia: Code(s): E78.2 - Mixed hyperlipidemia Status: Acute Assessment and Plan: Patient is on Crestor (5) T2DM (type 2 diabetes mellitus): Code(s): E11.9 - Type 2 diabetes mellitus without complications Status: Acute Assessment and Plan: Holding metformin Insulin sliding scale as needed (6) Restless leg syndrome: Code(s): G25.81 - Restless legs syndrome Status: Acute Assessment and Plan: Continue ropinirole Hospitalist [facility] Advance Care Plan I have confirmed that the patient's Advanced Care Plan is present, code status is documented, or surrogate decision maker is listed in patient medical record.: Yes Medication Reconciliation I have utilized all available resources to obtain, update and review the patients current medications (includes all prescriptions, OTC, herbals, cannabis, and nutritional supplements).: Yes
--- NOTE | 2024-11-17 04:25 | ADMGEN ---
This patient, Shailesh Cleaning, was admitted to 2 Medical Room 256-. Patient/family oriented to hospital policies and general routines including ID bracelet, bed and alarms, visiting hours, pain management, procedures, bathroom and other care routines, personal items, smoking policy, room service/diet, and visiting hours. Information on how to activate the Rapid Response Team has been discussed. Patient/Family are encouraged to report perceived risks to care and to ask questions if they do not understand what they are told or what they should do.
[2024-11-17] MEDS: LEVALBUTEROL NEB 1.25 MG/3 ML 0.63 MG INHALATION ×3 (07:52→20:32)
[2024-11-17] MEDS: IPRATROPIUM BR 0.02% INH SOLN 0.5 MG/2.5 ML VIAL INHALATION ×3 (07:52→20:33)
[2024-11-17 08:39] LABS: Glucose Point of Care 198 mg/dl (65-105)
[2024-11-17] MEDS: LEVOTHYROXINE SODIUM 50 MCG TABLET PO (09:39)
[2024-11-17] MEDS: predniSONE 20 MG TABLET 60 MG PO (09:39)
--- NOTE | 2024-11-17 14:58 | PM.IMPN ---
Progress Note: A&P Assessment and Plan (1) Acute exacerbation of chronic obstructive pulmonary disease (COPD): Code(s): J44.1 - Chronic obstructive pulmonary disease with (acute) exacerbation Status: Acute Assessment and Plan: Patient on Rocephin and Azithromycin. Patient on a scheduled breathing treatments Started on IV steroids. Started on Symbicort. Currently on 5L/NC for sats > 90 %. Wean O2 as tolerated for sats > 90 %. (2) Acute hypoxic respiratory failure: Code(s): J96.01 - Acute respiratory failure with hypoxia Status: Acute Assessment and Plan: Currently on 5L/NC for sats > 90 %. Further mgt as above. Wean O2 as shyam for sats > 90%. (3) Essential hypertension: Code(s): I10 - Essential (primary) hypertension Status: Acute Assessment and Plan: - Currently fairly well controlled. - Monitor for now. (4) Mixed hyperlipidemia: Code(s): E78.2 - Mixed hyperlipidemia Status: Acute Assessment and Plan: Patient on Crestor. (5) T2DM (type 2 diabetes mellitus): Code(s): E11.9 - Type 2 diabetes mellitus without complications Status: Acute Assessment and Plan: Holding metformin due to JACKIE. Patient refusing insulin. Started on Glipizide. Monitor blood-glucose closely and adjust meds as needed. (6) Restless leg syndrome: Code(s): G25.81 - Restless legs syndrome Status: Acute Assessment and Plan: Resume ropinirole. Time Spent With Patient Time with patient: 15 - 25 minutes Subjective Date/time seen: 11/17/24 10:58 States feeling much better than yesterday but still gets SOB with minimal exertion. Interval history: Patient on bedrest and looks to be in no acute distress at rest. Review of Systems Review of Systems: Shortness of breath, wheezing, chills. All systems reviewed & are unremarkable except as noted in HPI and below Exam Narrative: General: Elderly male on bedrest with generalized muscle weakness. HEENT: Atraumatic, PERRL, anicteric, EOM, moist mucosa. NECK: Supple. LUNGS: Clear bilaterally. HEART: RRR, no murmurs. Abdomen: Soft, NT, ND, +ve bowels X4 quadrants. Extremities: Acyanotic, no edema. Skin: Warm and dry. No lesions. NEURO: Well oriented. CN II-XII grossly intact. Psych: Very pleasant and co-operative. Objective Data Vital Signs Vital Signs: Vital Signs - 24 hr 11/16/24 23:16 11/17/24 00:01 11/17/24 00:04 Temperature Pulse Rate 104 H 122 H 111 H Respiratory Rate 8 L 16 Blood Pressure 179/85 H 171/93 H Pulse Oximetry 91 90 Oxygen Delivery Oxygen Flow Rate 11/17/24 00:04 11/17/24 00:04 11/17/24 00:21 Temperature Pulse Rate 120 H 106 H Respiratory Rate 16 16 Blood Pressure 171/93 H Pulse Oximetry 92 90 Oxygen Delivery Nasal Cannula Nasal Cannula Oxygen Flow Rate 2 2 11/17/24 01:32 11/17/24 02:16 11/17/24 02:25 Temperature Pulse Rate 101 H 120 H 115 H Respiratory Rate 18 25 H 16 Blood Pressure 157/78 H 157/78 H Pulse Oximetry 93 91 Oxygen Delivery Oxygen Flow Rate 11/17/24 02:31 11/17/24 02:58 11/17/24 03:02 Temperature 98.6 F Pulse Rate 119 H 116 H Respiratory Rate 14 11 L Blood Pressure 156/82 H 148/64 H Pulse Oximetry 92 98 Oxygen Delivery Oxygen Flow Rate 11/17/24 03:17 11/17/24 03:32 11/17/24 04:35 Temperature Pulse Rate 106 H 111 H 116 H Respiratory Rate 20 19 16 Blood Pressure 154/59 H 136/59 L Pulse Oximetry 90 95 90 Oxygen Delivery Nasal Cannula Oxygen Flow Rate 2 11/17/24 07:55 11/17/24 07:59 11/17/24 08:00 Temperature Pulse Rate 103 H Respiratory Rate 18 Blood Pressure Pulse Oximetry 84 L 90 Oxygen Delivery Nasal Cannula Nasal Cannula Oxygen Flow Rate 3 5 11/17/24 08:00 11/17/24 08:08 11/17/24 09:39 Temperature Pulse Rate 101 H 100 Respiratory Rate 18 Blood Pressure Pulse Oximetry Oxygen Delivery Nasal Cannula Oxygen Flow Rate 3 11/17/24 10:57 11/17/24 13:07 11/17/24 13:09 Temperature 98.1 F Pulse Rate 102 H 98 Respiratory Rate 18 18 Blood Pressure 134/62 Pulse Oximetry 91 84 L Oxygen Delivery Nasal Cannula Oxygen Flow Rate 3 11/17/24 13:09 11/17/24 13:23 11/17/24 14:34 Temperature 98.1 F Pulse Rate 99 96 Respiratory Rate 18 18 Blood Pressure 147/80 H Pulse Oximetry 90 91 Oxygen Delivery Nasal Cannula Oxygen Flow Rate 5 Intake/Output Intake/Output: Intake & Output 11/14/24 11/15/24 11/16/24 11/17/24 23:59 23:59 23:59 23:59 Intake Total 1780 Balance 1780 Meds/Results Medications: Active Medications Generic Name Dose Route Start Last Admin Trade Name Freq PRN Reason Stop Dose Admin Acetaminophen 650 mg 11/17/24 02:00 Acetaminophen 325 Mg Tablet PO Q4H PRN Mild Pain (1-3) or Fever Ceftriaxone Sodium 1 gm in 50 mls @ 100 mls/hr 11/17/24 21:00 Rocephin 1 Gm/Ns 50 Ml IVPB Q24H BENJAMIN Azithromycin 500 mg in 250 mls @ 250 mls/hr 11/17/24 21:00 Zithromax IVPB Q24H BENJAMIN Ipratropium [place] 0.5 mg 11/17/24 08:00 11/17/24 13:07 Ipratropium Br 0.02% Inh Soln 0.5 Mg/2.5 Ml Vial INHALATION 0.5 mg Q6HRT BENJAMIN Administration Levalbuterol HCl 0.63 mg 11/17/24 08:00 11/17/24 13:07 Levalbuterol Neb 1.25 Mg/3 Ml INHALATION 0.63 mg Q6HRT BENJAMIN Administration Levothyroxine Sodium 50 mcg 11/17/24 09:30 11/17/24 09:39 Levothyroxine Sodium 50 Mcg Tablet PO 50 mcg DAILY BENJAMIN Administration Metformin HCl 500 mg 11/17/24 17:00 Metformin Hcl 500 Mg Tablet BY MOUTH BIDWM BENJAMIN Prednisone 60 mg 11/17/24 08:00 11/17/24 09:39 Prednisone 20 Mg Tablet PO 60 mg DAILY@08 BENJAMIN Administration Radiology Results: ITS Impressions Chest X-Ray 11/16/24 17:00 IMPRESSION: Minimal opacification in the lung bases which may indicate atelectasis. Early pneumonia is not excluded. Follow-up advised. Labs Labs: Laboratory Results - last 24 hr 11/16/24 11/16/24 11/16/24 18:49 18:49 18:49 WBC 6.2 RBC 4.29 L Hgb 12.3 L Hct 38.3 L MCV 89.3 MCH 28.7 MCHC 32.1 RDW 13.2 Plt Count 155 MPV 9.2 Immature Gran % (Auto) 0.5 Neut % (Auto) 64.8 Lymph % (Auto) 18.7 [place] % (Auto) 14.4 H Eos % (Auto) 1.0 Baso % (Auto) 0.6 Lymph # (Auto) 1.16 [place] # (Auto) 0.9 H Eos # (Auto) 0.1 Baso # (Auto) 0.0 Abs Immat Gran (auto) 0.03 Absolute Neuts (auto) 4.0 Absolute Nucleated RBC 0.000 Nucleated RBC % 0.0 PT 14.6 INR 1.1 APTT 25.3 D-Dimer Sodium 133 L Potassium 3.7 Chloride 99 Carbon Dioxide 32 H Anion Gap 2 L BUN 21 H Creatinine 1.40 H Estim Creat Clear Calc 39 Estimated GFR 49 L Glucose 112 H POC Capillary Glucose Calcium 8.6 Magnesium 2.2 Cancelled Total Bilirubin 0.7 AST 50 ALT 23 Alkaline Phosphatase 67 Troponin I < 0.012 Cancelled NT-Pro-B Natriuret Pep 167 H Total Protein 7.0 Albumin 4.1 Influenza A (RT-PCR) Negative Influenza B (RT-PCR) Negative RSV (RT-PCR) Negative SARS-CoV-2 RNA (RT-PCR) Negative 11/17/24 11/17/24 00:36 08:32 WBC RBC Hgb Hct MCV MCH MCHC RDW Plt Count MPV Immature Gran % (Auto) Neut % (Auto) Lymph % (Auto) [place] % (Auto) Eos % (Auto) Baso % (Auto) Lymph # (Auto) [place] # (Auto) Eos # (Auto) Baso # (Auto) Abs Immat Gran (auto) Absolute Neuts (auto) Absolute Nucleated RBC Nucleated RBC % PT INR APTT D-Dimer 0.54 H Sodium Potassium Chloride Carbon Dioxide Anion Gap BUN Creatinine Estim Creat Clear Calc Estimated GFR Glucose POC Capillary Glucose 198 H Calcium Magnesium Total Bilirubin AST ALT Alkaline Phosphatase Troponin I NT-Pro-B Natriuret Pep Total Protein Albumin Influenza A (RT-PCR) Influenza B (RT-PCR) RSV (RT-PCR) SARS-CoV-2 RNA (RT-PCR) Quality VTE Prophylaxis VTE prophylaxis: mechanical ordered and pharmacologic ordered Hospitalist [facility] Advance Care Plan I have confirmed that the patient's Advanced Care Plan is present, code status is documented, or surrogate decision maker is listed in patient medical record.: Yes Medication Reconciliation I have utilized all available resources to obtain, update and review the patients current medications (includes all prescriptions, OTC, herbals, cannabis, and nutritional supplements).: Yes
[2024-11-17 16:53] LABS: Glucose Point of Care 189 mg/dl (65-105)
[2024-11-17] MEDS: methylPREDNISolone SOD SUCC 125 MG VIAL 80 MG IV PUSH (17:24)
[2024-11-17] MEDS: LOVASTATIN 20 MG TABLET BY MOUTH (17:25)
[2024-11-17] MEDS: FLUTICASONE/SALMETEROL 115-21 MCG INHALER 1 PUFF 2 PUFF INHALATION (20:43)
[2024-11-17 21:04] LABS: Glucose Point of Care 287 mg/dl (65-105)
[2024-11-18] VITALS (20 sets, daily range): BP systolic 114–171; BP diastolic 47–76; PULSE 78–106; RESP 16–31; TEMP 36.2–37.1; O2SAT 94–99
[2024-11-18] MEDS: WATER FOR IRRIGATION, STERILE 1,000 ML BOTTLE 1000 ML (00:05)
[2024-11-18] MEDS: methylPREDNISolone SOD SUCC 125 MG VIAL 80 MG IV PUSH ×5 (00:19→23:13)
[2024-11-18 05:29] LABS: Basophils Percent Auto 0.2 % (0.2-1.2); Hematocrit 32.2 % (42.0-52.0); Hemoglobin 10.8 g/dL (14.0-18.0); Immature Granulocyte Absolute 0.06 K/mm3 (0.00-0.031); Immature Granulocyte Percent A 0.5 % (0-0.5); Lymphocytes Absolute Auto 0.54 K/mm3 (0.9-3.2); Lymphocytes Percent Auto 4.7 % (18.3-44.2); Mean Corpuscular HGB Conc 33.5 g/dl (32-36); Mean Corpuscular Hemoglobin 29.3 pg (26-34); Mean Corpuscular Volume 87.3 fl (80-100); Mean Platelet Volume 9.5 fl (7.4-10.4); Monocytes Absolute Auto 0.6 K/mm3 (0.1-0.6); Monocytes Percent Auto 5.1 % (2.6-8.5); Neutrophils Absolute Auto 10.3 K/mm3 (1.3-6.7); Neutrophils Percent Auto 89.5 % (45.5-73.1); Platelet Count Result 154 k/mm3 (150-375); Red Blood Count 3.69 M/mm3 (4.6-6.20); Red Cell Distribution Width 13.1 % (11.5-14.5); White Blood Count 11.5 K/mm3 (4.5-10.0)
[2024-11-18 05:43] LABS: Anion Gap 1 mmol/L (4-12); Blood Urea Nitrogen 26 mg/dL (9-20); Calcium 7.8 mg/dL (8.4-10.2); Carbon Dioxide 28 mmol/L (22-30); Chloride 102 mmol/L (98-107); Estimated CRCL calculation 44 ml/min; Estimated Glomerular Filt Rate > 60; Glucose 182 mg/dL (65-110); Potassium 3.7 mmol/L (3.4-5.0); Sodium 131 mmol/L (137-145)
[2024-11-18] MEDS: FLUTICASONE/SALMETEROL 115-21 MCG INHALER 1 PUFF 2 PUFF INHALATION ×2 (07:22→21:00)
[2024-11-18] MEDS: LEVALBUTEROL NEB 1.25 MG/3 ML 0.63 MG INHALATION ×3 (07:23→21:06)
[2024-11-18] MEDS: IPRATROPIUM BR 0.02% INH SOLN 0.5 MG/2.5 ML VIAL INHALATION ×3 (07:23→21:00)
[2024-11-18] MEDS: LEVOTHYROXINE SODIUM 50 MCG TABLET PO (08:20)
[2024-11-18] MEDS: rOPINIRole HCL 0.5 MG TABLET PO (08:20)
[2024-11-18] MEDS: glipiZIDE XL 5 MG TABCR PO (08:20)
[2024-11-18] MEDS: CHOLECALCIFEROL 1,000 UNITS TABLET 1000 UNITS PO (08:20)
[2024-11-18 08:21] LABS: Glucose Point of Care 191 mg/dl (65-105)
--- NOTE | 2024-11-18 10:09 | P.PNIM_ITS ---
Progress Note: A&P Assessment and Plan (1) Acute exacerbation of chronic obstructive pulmonary disease (COPD): Code(s): J44.1 - Chronic obstructive pulmonary disease with (acute) exacerbation Status: Acute Assessment and Plan: Patient on Rocephin and Azithromycin. Patient on a scheduled breathing treatments Started on IV steroids. dose decreased today. Started on Symbicort. Currently on 5L/NC with sats > 96 %, weaned down to 3L/NC and we'll follow sats. Continue to wean O2 as tolerated for sats > 90 %. (2) Acute hypoxic respiratory failure: Code(s): J96.01 - Acute respiratory failure with hypoxia Status: Acute Assessment and Plan: CXR: Minimal opacification in the lung bases which may indicate atelectasis. Early pneumonia is not excluded. Follow-up advised Likely secondary to COPD exacerbation and possible PNA. Supplemental O2 weaned down 5L>>3L/NC. Continue to wean O2 as tolerated for sats > 90 %. Further mgt as above. (3) Essential hypertension: Code(s): I10 - Essential (primary) hypertension Status: Acute Assessment and Plan: - Currently fairly well controlled. - Monitor for now. (4) Mixed hyperlipidemia: Code(s): E78.2 - Mixed hyperlipidemia Status: Acute Assessment and Plan: Patient on Crestor. (5) T2DM (type 2 diabetes mellitus): Code(s): E11.9 - Type 2 diabetes mellitus without complications Status: Acute Assessment and Plan: Holding metformin due to JACKIE. Patient refusing insulin. Started on Glipizide. Monitor blood-glucose closely and adjust meds as needed with steroids use. (6) Restless leg syndrome: Code(s): G25.81 - Restless legs syndrome Status: Acute Assessment and Plan: Resume ropinirole. Plan Continue to wean down supplemental O2 and steroids. Continue IV abx for possible PNA. Time Spent With Patient Time with patient: 15 - 25 minutes Subjective Date/time seen: 11/18/24 10:09 Patient states he's feeling much better and his breathing feels like it's improving. Interval history: Patient seated on chair eating breakfast, looks to be in no acute distress at rest. Review of Systems Review of Systems: All systems reviewed & are unremarkable except as noted in HPI and below Exam Narrative: General: Elderly male seated on chair comfortably eating breakfast. HEENT: Atraumatic, PERRL, anicteric, EOM, moist mucosa. NECK: Supple. LUNGS: Coarse to bases with faint expiratory wheezes. HEART: RRR, no murmurs. Abdomen: Soft, NT, ND, +ve bowels X4 quadrants. Extremities: Acyanotic, no edema. Skin: Warm and dry. No lesions. NEURO: Well oriented. CN II-XII grossly intact. Psych: Very pleasant and co-operative. Objective Data Vital Signs Vital Signs: Vital Signs - 24 hr 11/17/24 10:57 11/17/24 12:00 11/17/24 13:07 Temperature 98.1 F Pulse Rate 102 H 94 Respiratory Rate 18 Blood Pressure 134/62 Pulse Oximetry 91 84 L Oxygen Delivery Nasal Cannula Oxygen Flow Rate 3 11/17/24 13:09 11/17/24 13:09 11/17/24 13:23 Temperature Pulse Rate 98 99 Respiratory Rate 18 18 Blood Pressure Pulse Oximetry 90 Oxygen Delivery Nasal Cannula Oxygen Flow Rate 5 11/17/24 14:34 11/17/24 15:21 11/17/24 16:00 Temperature 98.1 F Pulse Rate 96 95 Respiratory Rate 18 Blood Pressure 147/80 H Pulse Oximetry 91 93 Oxygen Delivery High Flow Nasal Cannula Oxygen Flow Rate 6 11/17/24 20:00 11/17/24 20:00 11/17/24 20:24 Temperature 98.4 F Pulse Rate 105 H 105 H Respiratory Rate 18 Blood Pressure 150/77 H Pulse Oximetry 93 100 Oxygen Delivery High Flow Nasal Cannula Oxygen Flow Rate 5 11/17/24 20:35 11/17/24 20:42 11/17/24 20:48 Temperature Pulse Rate 97 97 Respiratory Rate 18 18 Blood Pressure Pulse Oximetry 93 Oxygen Delivery Nasal Cannula Oxygen Flow Rate 5 11/17/24 22:08 11/17/24 23:00 11/18/24 00:00 Temperature 98.2 F Pulse Rate 100 100 106 H Respiratory Rate 20 18 Blood Pressure 118/79 Pulse Oximetry 94 94 Oxygen Delivery Autopap Oxygen Flow Rate 11/18/24 02:47 11/18/24 04:00 11/18/24 04:58 Temperature 98.5 F Pulse Rate 98 99 Respiratory Rate 22 H 18 Blood Pressure 136/61 Pulse Oximetry 99 Oxygen Delivery Autopap Oxygen Flow Rate 11/18/24 07:26 11/18/24 07:26 11/18/24 07:41 Temperature Pulse Rate 104 H 102 H Respiratory Rate 20 20 Blood Pressure Pulse Oximetry 95 Oxygen Delivery Nasal Cannula Oxygen Flow Rate 5 Intake/Output Intake/Output: Intake & Output 11/15/24 11/16/24 11/17/24 11/18/24 23:59 23:59 23:59 23:59 Intake Total 2810 780 Output Total 200 Balance 2810 580 Meds/Results Medications: Active Medications Generic Name Dose Route Start Last Admin Trade Name Freq PRN Reason Stop Dose Admin Acetaminophen 650 mg 11/17/24 02:00 Acetaminophen 325 Mg Tablet PO Q4H PRN Mild Pain (1-3) or Fever Albuterol 2.5 mg 11/17/24 15:40 Albuterol Sulfate Neb 2.5 Mg/3 Ml Inh INHALATION Q6H PRN shortness of breath or wheezing Albuterol 2 puff 11/17/24 15:40 Albuterol Sulfate (*Sp) Aerosol 1 Puff INHALATION Q4H PRN Shortness Of Breath Glipizide 5 mg 11/18/24 08:00 11/18/24 08:20 Glipizide Xl 5 Mg Tabcr PO 5 mg DAILY@0800 BENJAMIN Administration Ceftriaxone Sodium 1 gm in 50 mls @ 100 mls/hr 11/17/24 21:00 11/17/24 22:25 Rocephin 1 Gm/Ns 50 Ml IVPB 100 mls/hr Q24H BENJAMIN Administration Azithromycin 500 mg in 250 mls @ 250 mls/hr 11/17/24 21:00 11/17/24 20:54 Zithromax IVPB 250 mls/hr Q24H BENJAMIN Administration Ipratropium [place] 0.5 mg 11/17/24 08:00 11/18/24 07:23 Ipratropium Br 0.02% Inh Soln 0.5 Mg/2.5 Ml Vial INHALATION 0.5 mg Q6HRT BENJAMIN Administration Levalbuterol HCl 0.63 mg 11/17/24 08:00 11/18/24 07:23 Levalbuterol Neb 1.25 Mg/3 Ml INHALATION 0.63 mg Q6HRT BENJAMIN Administration Levothyroxine Sodium 50 mcg 11/17/24 09:30 11/18/24 08:20 Levothyroxine Sodium 50 Mcg Tablet PO 50 mcg DAILY BENJAMIN Administration Lovastatin 20 mg 11/17/24 18:00 11/17/24 17:25 Lovastatin 20 Mg Tablet BY MOUTH 20 mg EVENING BENJAMIN Administration Metformin HCl 500 mg 11/17/24 17:00 Metformin Hcl 500 Mg Tablet BY MOUTH [facility] Methylprednisolone Sodium Succinate 80 mg 11/17/24 18:00 11/18/24 06:06 Methylprednisolone Sod Succ 125 Mg Vial IV PUSH 80 mg Q6HR BENJAMIN Administration Ropinirole HCl 0.5 mg 11/18/24 09:00 11/18/24 08:20 Ropinirole Hcl 0.5 Mg Tablet PO 0.5 mg DAILY BENJAMIN Administration Fluticasone/Salmeterol 2 puff 11/17/24 20:00 11/18/24 07:22 Fluticasone/Salmeterol 115-21 Mcg Inhaler 1 Puff INHALATION 2 puff Q12HRT BENJAMIN Administration Vitamin D 1,000 units 11/18/24 09:00 11/18/24 08:20 Cholecalciferol 1,000 Units Tablet PO 1,000 units DAILY BENJAMIN Administration Radiology Results: ITS Impressions Chest X-Ray 11/16/24 17:00 IMPRESSION: Minimal opacification in the lung bases which may indicate atelectasis. Early pneumonia is not excluded. Follow-up advised. Labs Labs: Laboratory Results - last 24 hr 11/17/24 11/17/24 11/18/24 16:44 19:44 05:15 WBC 11.5 H RBC 3.69 L Hgb 10.8 L Hct 32.2 L MCV 87.3 MCH 29.3 MCHC 33.5 RDW 13.1 Plt Count 154 MPV 9.5 Immature Gran % (Auto) 0.5 Neut % (Auto) 89.5 H Lymph % (Auto) 4.7 L [place] % (Auto) 5.1 Eos % (Auto) 0.0 Baso % (Auto) 0.2 Lymph # (Auto) 0.54 L [place] # (Auto) 0.6 Eos # (Auto) 0.0 Baso # (Auto) 0.0 Abs Immat Gran (auto) 0.06 H Absolute Neuts (auto) 10.3 H Absolute Nucleated RBC 0.000 Nucleated RBC % 0.0 Sodium 131 L Potassium 3.7 Chloride 102 Carbon Dioxide 28 Anion Gap 1 L BUN 26 H Creatinine 1.10 Estim Creat Clear Calc 44 Estimated GFR > 60 Glucose 182 H POC Capillary Glucose 189 H 287 H Calcium 7.8 L 11/18/24 08:12 WBC RBC Hgb Hct MCV MCH MCHC RDW Plt Count MPV Immature Gran % (Auto) Neut % (Auto) Lymph % (Auto) [place] % (Auto) Eos % (Auto) Baso % (Auto) Lymph # (Auto) [place] # (Auto) Eos # (Auto) Baso # (Auto) Abs Immat Gran (auto) Absolute Neuts (auto) Absolute Nucleated RBC Nucleated RBC % Sodium Potassium Chloride Carbon Dioxide Anion Gap BUN Creatinine Estim Creat Clear Calc Estimated GFR Glucose POC Capillary Glucose 191 H Calcium Quality VTE Prophylaxis VTE prophylaxis: mechanical ordered and pharmacologic ordered Hospitalist MIPS Advance Care Plan I have confirmed that the patient's Advanced Care Plan is present, code status is documented, or surrogate decision maker is listed in patient medical record.: Yes Medication Reconciliation I have utilized all available resources to obtain, update and review the patients current medications (includes all prescriptions, OTC, herbals, cannabis, and nutritional supplements).: Yes
[2024-11-18 11:49] LABS: Glucose Point of Care 255 mg/dl (65-105)
[2024-11-18 16:55] LABS: Glucose Point of Care 160 mg/dl (65-105)
[2024-11-18] MEDS: LOVASTATIN 20 MG TABLET BY MOUTH (17:27)
[2024-11-18 20:26] LABS: Glucose Point of Care 244 mg/dl (65-105)
[2024-11-18] MEDS: AZITHROMYCIN 500 MG/NS 250 ML 500 MG/250 ML BAG 250 MG IVPB (20:49)
[2024-11-19] VITALS (19 sets, daily range): BP systolic 148–154; BP diastolic 70–81; PULSE 64–107; RESP 16–20; TEMP 36.2–37.1; O2SAT 93–98
[2024-11-19] MEDS: LEVALBUTEROL NEB 1.25 MG/3 ML 0.63 MG INHALATION ×4 (02:13→21:30)
[2024-11-19] MEDS: IPRATROPIUM BR 0.02% INH SOLN 0.5 MG/2.5 ML VIAL INHALATION ×4 (02:13→21:31)
[2024-11-19 05:58] LABS: Basophils Percent Auto 0.1 % (0.2-1.2); Hematocrit 32.6 % (42.0-52.0); Hemoglobin 10.6 g/dL (14.0-18.0); Immature Granulocyte Absolute 0.13 K/mm3 (0.00-0.031); Immature Granulocyte Percent A 0.9 % (0-0.5); Lymphocytes Absolute Auto 0.67 K/mm3 (0.9-3.2); Lymphocytes Percent Auto 4.8 % (18.3-44.2); Mean Corpuscular HGB Conc 32.5 g/dl (32-36); Mean Corpuscular Hemoglobin 28.7 pg (26-34); Mean Corpuscular Volume 88.3 fl (80-100); Mean Platelet Volume 9.8 fl (7.4-10.4); Monocytes Absolute Auto 0.7 K/mm3 (0.1-0.6); Monocytes Percent Auto 4.9 % (2.6-8.5); Neutrophils Absolute Auto 12.4 K/mm3 (1.3-6.7); Neutrophils Percent Auto 89.3 % (45.5-73.1); Platelet Count Result 183 k/mm3 (150-375); Red Blood Count 3.69 M/mm3 (4.6-6.20); Red Cell Distribution Width 13.2 % (11.5-14.5); White Blood Count 13.9 K/mm3 (4.5-10.0)
[2024-11-19 06:05] LABS: Anion Gap 2 mmol/L (4-12); Blood Urea Nitrogen 29 mg/dL (9-20); Calcium 7.9 mg/dL (8.4-10.2); Carbon Dioxide 28 mmol/L (22-30); Chloride 104 mmol/L (98-107); Estimated CRCL calculation 44 ml/min; Estimated Glomerular Filt Rate > 60; Glucose 157 mg/dL (65-110); Potassium 3.6 mmol/L (3.4-5.0); Sodium 134 mmol/L (137-145)
[2024-11-19] MEDS: methylPREDNISolone SOD SUCC 125 MG VIAL 80 MG IV PUSH (06:24)
[2024-11-19 08:19] LABS: Glucose Point of Care 181 mg/dl (65-105)
[2024-11-19] MEDS: FLUTICASONE/SALMETEROL 115-21 MCG INHALER 1 PUFF 2 PUFF INHALATION ×2 (08:22→21:31)
--- NOTE | 2024-11-19 09:07 | P.PNIM_ITS ---
Progress Note: A&P Assessment and Plan (1) Acute exacerbation of chronic obstructive pulmonary disease (COPD): Code(s): J44.1 - Chronic obstructive pulmonary disease with (acute) exacerbation Status: Acute Assessment and Plan: Patient on Rocephin and Azithromycin. Blood cultures NGTD, normal ascencion on sputum culture. Patient on a scheduled breathing treatments. Dose of IV steroids decreased; 80 mg TID>>60 mg TID. Continue Symbicort. Patient PO2 98 % on 5L/NC and dose decreased 5L>2L. Continue to titrate supplemental O2; 5L/NC>>2L Continue to monitor PO2 closely and wean as tolerated for sats > 90 %. (2) Acute hypoxic respiratory failure: Code(s): J96.01 - Acute respiratory failure with hypoxia Status: Acute Assessment and Plan: CXR: Minimal opacification in the lung bases which may indicate atelectasis. Early pneumonia is not excluded. Follow-up advised Likely secondary to COPD exacerbation and possible PNA. Supplemental O2 weaned down 5L>>2L/NC. Continue to wean O2 as tolerated for sats > 90 %. Further mgt as above. (3) Essential hypertension: Code(s): I10 - Essential (primary) hypertension Status: Acute Assessment and Plan: - Remains fairly well controlled. - Monitor for now. (4) Mixed hyperlipidemia: Code(s): E78.2 - Mixed hyperlipidemia Status: Acute Assessment and Plan: Patient on Crestor. (5) T2DM (type 2 diabetes mellitus): Code(s): E11.9 - Type 2 diabetes mellitus without complications Status: Acute Assessment and Plan: Holding metformin due to JACKIE. Patient refusing insulin. Started on Glipizide. Blood glucose levels trending mid 200's, likely due to steroids. Monitor blood-glucose closely and adjust meds as needed with steroids use. (6) Restless leg syndrome: Code(s): G25.81 - Restless legs syndrome Status: Acute Assessment and Plan: Resume ropinirole. Plan Continue to wean down supplemental O2 and steroids. Continue IV abx for possible PNA. Time Spent With Patient Time with patient: 15 - 25 minutes Subjective Date/time seen: 11/19/24 09:07 Patient states his breathing is improving and he's feeling better. Interval history: Patient seated on chair having breakfast, looks to be in no acute distress. Review of Systems Review of Systems: Shortness of breath, wheezing, chills. All systems reviewed & are unremarkable except as noted in HPI and below Exam Narrative: General: Elderly male seated on chair comfortably eating breakfast. HEENT: Atraumatic, PERRL, anicteric, EOM, moist mucosa. NECK: Supple. LUNGS: Coarse breath sounds to bases. HEART: RRR, no murmurs. Abdomen: Soft, NT, ND, +ve bowels X4 quadrants. Extremities: Acyanotic, no edema. Skin: Warm and dry. No lesions. NEURO: Well oriented. CN II-XII grossly intact. Psych: Very pleasant and co-operative. Objective Data Vital Signs Vital Signs: Vital Signs - 24 hr 11/18/24 12:00 11/18/24 13:51 11/18/24 14:14 Temperature Pulse Rate 99 98 105 H Respiratory Rate 20 20 Blood Pressure Pulse Oximetry Oxygen Delivery Oxygen Flow Rate 11/18/24 14:37 11/18/24 16:00 11/18/24 19:45 Temperature 97.2 F L 98.5 F Pulse Rate 98 100 100 Respiratory Rate 18 18 Blood Pressure 149/65 H 171/74 H Pulse Oximetry 95 97 Oxygen Delivery Oxygen Flow Rate 11/18/24 19:53 11/18/24 20:00 11/18/24 21:06 Temperature 98.5 F Pulse Rate 78 94 103 H Respiratory Rate 16 20 Blood Pressure 114/47 L Pulse Oximetry 94 Oxygen Delivery Oxygen Flow Rate 11/18/24 21:17 11/18/24 22:26 11/18/24 23:15 Temperature 98.8 F Pulse Rate 104 H 97 Respiratory Rate 20 18 31 H Blood Pressure 152/76 H Pulse Oximetry 97 Oxygen Delivery Autopap Oxygen Flow Rate 11/19/24 00:00 11/19/24 02:15 11/19/24 02:17 Temperature Pulse Rate 107 H 107 H Respiratory Rate 16 16 Blood Pressure Pulse Oximetry 97 Oxygen Delivery Autopap Oxygen Flow Rate 11/19/24 02:21 11/19/24 04:00 11/19/24 04:57 Temperature 98.3 F Pulse Rate 107 H 91 64 Respiratory Rate 16 16 Blood Pressure 148/81 H Pulse Oximetry 95 Oxygen Delivery Oxygen Flow Rate 11/19/24 08:24 11/19/24 08:24 11/19/24 08:37 Temperature Pulse Rate 79 88 Respiratory Rate 20 20 Blood Pressure Pulse Oximetry 96 Oxygen Delivery High Flow Nasal Cannula Oxygen Flow Rate 5 Intake/Output Intake/Output: Intake & Output 11/16/24 11/17/24 11/18/24 11/19/24 23:59 23:59 23:59 23:59 Intake Total 3110 2700 300 Output Total 200 Balance 3110 2500 300 Meds/Results Medications: Active Medications Generic Name Dose Route Start Last Admin Trade Name Freq PRN Reason Stop Dose Admin Acetaminophen 650 mg 11/17/24 02:00 Acetaminophen 325 Mg Tablet PO Q4H PRN Mild Pain (1-3) or Fever Albuterol 2.5 mg 11/17/24 15:40 Albuterol Sulfate Neb 2.5 Mg/3 Ml Inh INHALATION Q6H PRN shortness of breath or wheezing Albuterol 2 puff 11/17/24 15:40 Albuterol Sulfate (*Sp) Aerosol 1 Puff INHALATION Q4H PRN Shortness Of Breath Enoxaparin Sodium 40 mg 11/18/24 09:00 11/18/24 11:31 Enoxaparin 40 Mg/0.4 Ml Syringe SUB-Q Not Given DAILY BENJAMIN Glipizide 5 mg 11/18/24 08:00 11/18/24 08:20 Glipizide Xl 5 Mg Tabcr PO 5 mg DAILY@0800 BENJAMIN Administration Ceftriaxone Sodium 1 gm in 50 mls @ 100 mls/hr 11/17/24 21:00 11/18/24 20:34 Rocephin 1 Gm/Ns 50 Ml IVPB Infused Q24H BENJAMIN Infusion Azithromycin 500 mg in 250 mls @ 250 mls/hr 11/17/24 21:00 11/18/24 21:49 Zithromax IVPB Infused Q24H BENJAMIN Infusion Ipratropium [place] 0.5 mg 11/17/24 08:00 11/19/24 08:21 Ipratropium Br 0.02% Inh Soln 0.5 Mg/2.5 Ml Vial INHALATION 0.5 mg Q6HRT BENJAMIN Administration Levalbuterol HCl 0.63 mg 11/17/24 08:00 11/19/24 08:21 Levalbuterol Neb 1.25 Mg/3 Ml INHALATION 0.63 mg Q6HRT BENJAMIN Administration Levothyroxine Sodium 50 mcg 11/17/24 09:30 11/18/24 08:20 Levothyroxine Sodium 50 Mcg Tablet PO 50 mcg DAILY BENJAMIN Administration Lovastatin 20 mg 11/17/24 18:00 11/18/24 17:27 Lovastatin 20 Mg Tablet BY MOUTH 20 mg EVENING BENJAMIN Administration Metformin HCl 500 mg 11/17/24 17:00 Metformin Hcl 500 Mg Tablet BY MOUTH BIDWM BENJAMIN Methylprednisolone Sodium Succinate 80 mg 11/17/24 18:00 11/19/24 06:24 Methylprednisolone Sod Succ 125 Mg Vial IV PUSH 80 mg Q6HR BENJAMIN Administration Ropinirole HCl 0.5 mg 11/18/24 09:00 11/18/24 08:20 Ropinirole Hcl 0.5 Mg Tablet PO 0.5 mg DAILY BENJAMIN Administration Fluticasone/Salmeterol 2 puff 11/17/24 20:00 11/19/24 08:22 Fluticasone/Salmeterol 115-21 Mcg Inhaler 1 Puff INHALATION 2 puff Q12HRT BENJAMIN Administration Vitamin D 1,000 units 11/18/24 09:00 11/18/24 08:20 Cholecalciferol 1,000 Units Tablet PO 1,000 units DAILY BENJAMIN Administration Radiology Results: ITS Impressions Chest X-Ray 11/16/24 17:00 IMPRESSION: Minimal opacification in the lung bases which may indicate atelectasis. Early pneumonia is not excluded. Follow-up advised. Labs Labs: Laboratory Results - last 24 hr 11/18/24 11/18/24 11/18/24 11:41 16:51 19:33 WBC RBC Hgb Hct MCV MCH MCHC RDW Plt Count MPV Immature Gran % (Auto) Neut % (Auto) Lymph % (Auto) [place] % (Auto) Eos % (Auto) Baso % (Auto) Lymph # (Auto) Price # (Auto) Eos # (Auto) Baso # (Auto) Abs Immat Gran (auto) Absolute Neuts (auto) Absolute Nucleated RBC Nucleated RBC % Sodium Potassium Chloride Carbon Dioxide Anion Gap BUN Creatinine Estim Creat Clear Calc Estimated GFR Glucose POC Capillary Glucose 255 H 160 H 244 H Calcium 11/19/24 11/19/24 05:19 08:05 WBC 13.9 H RBC 3.69 L Hgb 10.6 L Hct 32.6 L MCV 88.3 MCH 28.7 MCHC 32.5 RDW 13.2 Plt Count 183 MPV 9.8 Immature Gran % (Auto) 0.9 H Neut % (Auto) 89.3 H Lymph % (Auto) 4.8 L [place] % (Auto) 4.9 Eos % (Auto) 0.0 Baso % (Auto) 0.1 L Lymph # (Auto) 0.67 L [place] # (Auto) 0.7 H Eos # (Auto) 0.0 Baso # (Auto) 0.0 Abs Immat Gran (auto) 0.13 H Absolute Neuts (auto) 12.4 H Absolute Nucleated RBC 0.000 Nucleated RBC % 0.0 Sodium 134 L Potassium 3.6 Chloride 104 Carbon Dioxide 28 Anion Gap 2 L BUN 29 H Creatinine 1.10 Estim Creat Clear Calc 44 Estimated GFR > 60 Glucose 157 H POC Capillary Glucose 181 H Calcium 7.9 L Quality VTE Prophylaxis VTE prophylaxis: mechanical ordered and pharmacologic ordered Hospitalist MIPS Advance Care Plan I have confirmed that the patient's Advanced Care Plan is present, code status is documented, or surrogate decision maker is listed in patient medical record.: Yes Medication Reconciliation I have utilized all available resources to obtain, update and review the patients current medications (includes all prescriptions, OTC, herbals, cannabis, and nutritional supplements).: Yes
[2024-11-19] MEDS: CHOLECALCIFEROL 1,000 UNITS TABLET 1000 UNITS PO (09:15)
[2024-11-19] MEDS: rOPINIRole HCL 0.5 MG TABLET PO (09:15)
[2024-11-19] MEDS: LEVOTHYROXINE SODIUM 50 MCG TABLET PO (09:16)
[2024-11-19] MEDS: glipiZIDE XL 5 MG TABCR PO (09:16)
[2024-11-19 11:51] LABS: Glucose Point of Care 247 mg/dl (65-105)
[2024-11-19] MEDS: methylPREDNISolone SOD SUCC 125 MG VIAL 60 MG IV PUSH (13:16)
[2024-11-19] MEDS: hydroCHLOROthiazide 25 MG TABLET PO (15:19)
[2024-11-19 16:55] LABS: Glucose Point of Care 139 mg/dl (65-105)
[2024-11-19] MEDS: LOVASTATIN 20 MG TABLET BY MOUTH (17:04)
[2024-11-19 20:10] LABS: Glucose Point of Care 146 mg/dl (65-105)
[2024-11-19] MEDS: AZITHROMYCIN 500 MG/NS 250 ML 500 MG/250 ML BAG 250 MG IVPB (20:22)
[2024-11-20] MEDS: methylPREDNISolone SOD SUCC 125 MG VIAL 60 MG IV PUSH ×2 (00:36→06:20)
[2024-11-20] MEDS: ACETAMINOPHEN 325 MG TABLET 650 MG PO ×2 (00:52→06:38)
[2024-11-20] MEDS: LEVALBUTEROL NEB 1.25 MG/3 ML 0.63 MG INHALATION ×2 (02:20→08:01)
[2024-11-20] MEDS: IPRATROPIUM BR 0.02% INH SOLN 0.5 MG/2.5 ML VIAL INHALATION ×2 (02:20→08:01)
[2024-11-20 02:21] VITALS: PULSE 88; RESP 20
[2024-11-20 02:31] VITALS: PULSE 80; RESP 20
[2024-11-20 06:00] VITALS: BP 139/82; PULSE 93; RESP 16; TEMP 36.4; O2SAT 94
[2024-11-20 06:15] LABS: Basophils Absolute Auto 0.1 K/mm3 (0.0-0.1); Basophils Percent Auto 0.3 % (0.2-1.2); Eosinophils Percent Auto 0.1 % (0-4.4); Hematocrit 36.8 % (42.0-52.0); Hemoglobin 11.8 g/dL (14.0-18.0); Immature Granulocyte Percent A 2.1 % (0-0.5); Lymphocytes Absolute Auto 1.03 K/mm3 (0.9-3.2); Lymphocytes Percent Auto 7.1 % (18.3-44.2); Mean Corpuscular HGB Conc 32.1 g/dl (32-36); Mean Corpuscular Hemoglobin 29.1 pg (26-34); Mean Corpuscular Volume 90.6 fl (80-100); Mean Platelet Volume 9.6 fl (7.4-10.4); Monocytes Percent Auto 6.9 % (2.6-8.5); Neutrophils Percent Auto 83.5 % (45.5-73.1); Platelet Count Result 208 k/mm3 (150-375); Red Blood Count 4.06 M/mm3 (4.6-6.20); Red Cell Distribution Width 13.3 % (11.5-14.5); White Blood Count 14.4 K/mm3 (4.5-10.0)
[2024-11-20 06:26] LABS: Anion Gap 2 mmol/L (4-12); Blood Urea Nitrogen 30 mg/dL (9-20); Calcium 8.3 mg/dL (8.4-10.2); Carbon Dioxide 29 mmol/L (22-30); Chloride 104 mmol/L (98-107); Estimated CRCL calculation 48 ml/min; Estimated Glomerular Filt Rate > 60; Glucose 125 mg/dL (65-110); Potassium 3.9 mmol/L (3.4-5.0); Sodium 135 mmol/L (137-145)
[2024-11-20] MEDS: FLUTICASONE/SALMETEROL 115-21 MCG INHALER 1 PUFF 2 PUFF INHALATION (08:01)
[2024-11-20 08:02] VITALS: PULSE 78; RESP 20; O2SAT 96
[2024-11-20 08:14] LABS: Glucose Point of Care 127 mg/dl (65-105)
[2024-11-20 08:20] VITALS: PULSE 85; RESP 20
[2024-11-20] MEDS: glipiZIDE XL 5 MG TABCR PO (08:37)
[2024-11-20] MEDS: hydroCHLOROthiazide 25 MG TABLET PO (08:37)
[2024-11-20] MEDS: CHOLECALCIFEROL 1,000 UNITS TABLET 1000 UNITS PO (08:38)
[2024-11-20] MEDS: LEVOTHYROXINE SODIUM 50 MCG TABLET PO (08:38)
[2024-11-20] MEDS: rOPINIRole HCL 0.5 MG TABLET PO (08:38)
[2024-11-20 12:08] LABS: Glucose Point of Care 195 mg/dl (65-105)
--- NOTE | 2024-11-20 12:32 | P.DS_ITS ---
DS: Admitting Diagnosis Discharge Date 11/20/24 Admitting Diagnosis SOB DS: Discharge Diagnosis Discharge Diagnosis (1) Acute exacerbation of chronic obstructive pulmonary disease (COPD): Code(s): J44.1 - Chronic obstructive pulmonary disease with (acute) exacerbation Status: Acute Assessment and Plan: Patient was on Rocephin and Azithromycin for possible PNA. Blood cultures NGTD, normal ascencion on sputum culture. Patient was on a scheduled breathing treatments. Treated with IV steroids and discharged on tapered prednisone dose. Treated with Symbicort in patient and to resume Wixela at home. Patient initially on 5L/NC and was able to be weaned off O2. Continue to titrate supplemental O2; 5L/NC>>2L (2) Acute hypoxic respiratory failure: Code(s): J96.01 - Acute respiratory failure with hypoxia Status: Acute Assessment and Plan: CXR: Minimal opacification in the lung bases which may indicate atelectasis. Early pneumonia is not excluded. Follow-up advised Likely secondary to COPD exacerbation and possible PNA. Treated with IV steroids and IV abx, as well as bronchodilators. Pt on supplemental O2 on admission, up to 5L/NC but was weaned off prior to discharge. Good O2 sats > 90 % on RA prior to discharge. (3) Essential hypertension: Code(s): I10 - Essential (primary) hypertension Status: Acute Assessment and Plan: - Remained fairly well controlled inpatient. (4) Mixed hyperlipidemia: Code(s): E78.2 - Mixed hyperlipidemia Status: Acute Assessment and Plan: Patient on Crestor inpatient. (5) T2DM (type 2 diabetes mellitus): Code(s): E11.9 - Type 2 diabetes mellitus without complications Status: Acute Assessment and Plan: Metformin due to JACKIE. Patient refused insulin. Treated with Glipizide inpatient. Blood glucose levels well controlled < 200 prior to discharge. (6) Restless leg syndrome: Code(s): G25.81 - Restless legs syndrome Status: Acute Assessment and Plan: Ropinirole resumed inpatient. Plan Discharge Home DS: Summary Hospital Course Reason for hospitalization: Acute on Chronic Hypoxic Respiratory Failure Hospital Course: Patient presented to the ER with reports of worsening SOB within the last couple of days before his presentation. Patient has a Hx of COPD but does not require supplemental O2 at home. In the ER he required up to 5L/NC to maintain sats > 90 %. His CXR was indicative of early atelectasis vs/+ early pneumonia so he was admitted for treatment. Patient had blood and sputum cultures done that were both negative. He has been treated with IV antibiotics, IV steroids and scheduled bronchodilators. Patient was initially on up to 5L/NC to maintain sats > 90 %, and he has been able to be weaned off supplemental O2 prior to discharge. He had small JACKIE and this resolved prior to discharge. His metformin was held due to JACKIE and he was treated on Glipizide inpatient but can resume his metformin at home with resolved JACKIE. Patient reported feeling back to normal and requested to be discharged home. All his other chronic conditions remained stable inpatient, and he was medically stable for discharge with no acute distress noted or reported prior to discharge. Status at Discharge Functional status at discharge: independent ambulation Overall status at discharge: patient is progressing back to baseline Time Spent with Patient Time attestation: Total time spent providing and/or coordinating discharge services: Time spent: Greater than 30 minutes Exam Narrative: General: Elderly male seated on chair comfortably eating breakfast. HEENT: Atraumatic, PERRL, anicteric, EOM, moist mucosa. NECK: Supple. LUNGS: Faint generalized wheezing. HEART: RRR, no murmurs. Abdomen: Soft, NT, ND, +ve bowels X4 quadrants. Extremities: Acyanotic, no edema. Skin: Warm and dry. No lesions. NEURO: Well oriented. CN II-XII grossly intact. Psych: Very pleasant and co-operative. DS: Data Data Completed and Pending Labs on day of discharge: Labs from last 24 hours 11/20/24 11/20/24 11/20/24 11:45 07:58 05:47 WBC 14.4 H RBC 4.06 L Hgb 11.8 L Hct 36.8 L MCV 90.6 MCH 29.1 MCHC 32.1 RDW 13.3 Plt Count 208 MPV 9.6 Immature Gran % (Auto) 2.1 H Neut % (Auto) 83.5 H Lymph % (Auto) 7.1 L [place] % (Auto) 6.9 Eos % (Auto) 0.1 Baso % (Auto) 0.3 Lymph # (Auto) 1.03 [place] # (Auto) 1.0 H Eos # (Auto) 0.0 Baso # (Auto) 0.1 Abs Immat Gran (auto) 0.30 H Absolute Neuts (auto) 12.0 H Absolute Nucleated RBC 0.000 Nucleated RBC % 0.0 Sodium 135 L Potassium 3.9 Chloride 104 Carbon Dioxide 29 Anion Gap 2 L BUN 30 H Creatinine 1.00 Estim Creat Clear Calc 48 Estimated GFR > 60 Glucose 125 H POC Capillary Glucose 195 H 127 H Calcium 8.3 L 11/19/24 11/19/24 20:07 16:42 WBC RBC Hgb Hct MCV MCH MCHC RDW Plt Count MPV Immature Gran % (Auto) Neut % (Auto) Lymph % (Auto) [place] % (Auto) Eos % (Auto) Baso % (Auto) Lymph # (Auto) [place] # (Auto) Eos # (Auto) Baso # (Auto) Abs Immat Gran (auto) Absolute Neuts (auto) Absolute Nucleated RBC Nucleated RBC % Sodium Potassium Chloride Carbon Dioxide Anion Gap BUN Creatinine Estim Creat Clear Calc Estimated GFR Glucose POC Capillary Glucose 146 H 139 H Calcium Preliminary micro results at discharge 11/17/24 00:36 Blood Culture - Preliminary Blood 11/17/24 00:36 Blood Culture - Preliminary Blood Discharge Plan Discharge Attending physician on discharge: Dat Stout Discharging Clinician: Margret Dempsey Anticipated Discharge Date/Time: 11/20/24 12:46 Patient Disposition: Home, Self-Care Activity: as tolerated Diet: heart healthy Patient Instructions: Antibiotic Form Patient Language: Polish Stand Alone Forms: General Discharge Information Follow-up/Referrals: Shreya,Teodoro Smiley PA-C [Primary Care Provider] - 1 Week Discharge Medications: New prednisone 20 mg tablet 20 mg PO DAILY Qty: 7 0RF Rx Instructions: 40 mg daily X 2 days 20 mg daily X 3 days then discontinue cefuroxime axetil 250 mg Tablet 500 mg PO Q12HR Qty: 10 0RF Continued albuterol sulfate 2.5 mg /3 mL (0.083 %) solution for nebulization 2.5 mg inhalation Q6H PRN (Reason: shortness of breath or wheezing) Qty: 75 0 RF fluticasone propion-salmeterol [Wixela Inhub] 250-50 mcg/dose blister with device 1 inh inhalation DAILY ropinirole 0.5 mg tablet 0.5 mg PO DAILY epinephrine [EpiPen 2-Gareth] 0.3 mg/0.3 mL auto-injector 0.3 mg IM ONCE Rx Instructions: as a single dose cholecalciferol (vitamin D3) 25 mcg (1,000 unit) capsule 1,000 unit PO DAILY albuterol sulfate [Proventil HFA] 90 mcg/actuation HFA aerosol inhaler 2 puff INHALATION Q4H PRN (Reason: Shortness Of Breath) levothyroxine 50 mcg tablet 50 mcg PO DAILY Qty: 90 1RF hydrochlorothiazide 25 mg tablet 25 mg PO DAILY Qty: 90 1RF metformin 500 mg tablet See Rx Instructions .ROUTE .COMPLEX Qty: 180 1RF Dose Instruction: TAKE 1 TABLET BY MOUTH TWICE A DAY WITH MORNING AND EVENING MEALS Rx Instructions: TAKE 1 TABLET BY MOUTH TWICE A DAY WITH MORNING AND EVENING MEALS lovastatin 20 mg tablet See Rx Instructions .ROUTE .COMPLEX Qty: 90 2RF Dose Instruction: TAKE 1 TABLET BY MOUTH EVERY DAY IN THE EVENING Rx Instructions: TAKE 1 TABLET BY MOUTH EVERY DAY IN THE EVENING Date of admission: 11/18/24 08:44 Primary Care Provider: JackelinTeodoro Admitting Provider: Zahraa Toribio V. Attending physician on admission: Zahraa Toribio V. Condition: Stable Quality If No VTE Prophylaxis Answer both mechanical and pharmacologic: Reason no mechanical VTE proph: low risk/not indicated Reason no pharmacologic proph: low risk/not indicated Hospitalist MIPS Heart Failure (Exclusion) Patient has history of Heart Transplant or Left Ventricular Assistive Device?: No IF YES, STOP HERE Heart Failure (Qualifier) Patient has current or prior documentation of LVEF less than or equal to 40%, or mod/servere depressed LVSF?: No IF NO, STOP HERE
== END 2024-11-20 13:10 | disposition home or self-care (01) | DRG 190 ==
LOC: ANHED 11-17 01:02 → ANH2MED 11-17 03:17
PROVIDERS: Physician Assistant; Admitting Provider Internal Medicine; Emergency Provider Physician Assistant; PCP Physician Assistant; Visit Provider Nurse Practitioner Adult Health
DX: J44.1 Chronic obstructive pulmonary disease with (acute) exacerbation (principal); J96.01 Acute respiratory failure with hypoxia; N17.9 Acute kidney failure, unspecified; I10 Essential (primary) hypertension; E11.9 Type 2 diabetes mellitus without complications; E78.5 Hyperlipidemia, unspecified; N18.9 Chronic kidney disease, unspecified; G25.81 Restless legs syndrome; G47.33 Obstructive sleep apnea (adult) (pediatric); Z20.822 Contact with and (suspected) exposure to COVID-19; Z80.0 Family history of malignant neoplasm of digestive organs; Z87.891 Personal history of nicotine dependence
CPT/HCPCS: 36415; 71046; 80048; 80053; 82948; 83735; 83880; 84484; 85025; 85380; 85610; 85730; 87040; 87070; 87205; 87637; 93005; 94640; 96365; 96367; 96375; 96376; 99284; A9270; G0378; J0456; J0696; J2919; J7030; J7512

== ENCOUNTER 2024-12-26 05:18 | Inpatient (IN) | payer OTHER, SELFPAY ==
[2024-12-26] VITALS (19 sets, daily range): BP systolic 111–137; BP diastolic 56–81; PULSE 98–128; RESP 9–23; TEMP 36.7–38.3; O2SAT 92–97; BMI 31.4
--- NOTE | ~2024-12-26 | XR_ITS ---
Clinical Indication: Shortness of breath PA and lateral views of the chest: Comparison: 12/06/2024 Findings: Probable COPD pattern of the lungs. There is probable left basilar atelectasis or pneumonia .. Cardiomediastinal silhouette is within normal limits. Bones and soft tissues are unremarkable. Impression: Left basilar atelectasis versus pneumonia. Correlate clinically. Underlying COPD. Reviewed, dictated and finalized at location . [facility] Impression: Left basilar atelectasis versus pneumonia. Correlate clinically. Underlying COPD.
--- NOTE | 2024-12-26 05:26 | ECG_ITS ---
Test Date: 2024-12-26 05:29:18 Measurements Intervals Gay Rate: 118 P: 129 [place]: 180 QRS: -13 QRSD: 128 T: 41 QT: 333 QTc: 467 Interpretive Statements SINUS TACHYCARDIA RIGHT BUNDLE BRANCH BLOCK ABNORMAL ECG Compared to ECG 11/16/2024 23:30:03 HEART RATE HAS INCREASED Electronically Signed On 12-26-2024 07:05:26 GAS WORKER by Kian Helton D.O.
[2024-12-26] MEDS: SODIUM CHLORIDE 0.9% IV 1,000 ML 999 ML IV CONT (05:51)
[2024-12-26 06:00] LABS: Basophils Percent Auto 0.2 % (0.2-1.2); Eosinophils Percent Auto 0.1 % (0-4.4); Hematocrit 34.5 % (42.0-52.0); Hemoglobin 11.2 g/dL (14.0-18.0); Immature Granulocyte Absolute 0.04 K/mm3 (0.00-0.031); Immature Granulocyte Percent A 0.5 % (0-0.5); Lymphocytes Absolute Auto 0.57 K/mm3 (0.9-3.2); Mean Corpuscular HGB Conc 32.5 g/dl (32-36); Mean Corpuscular Hemoglobin 28.5 pg (26-34); Mean Corpuscular Volume 87.8 fl (80-100); Mean Platelet Volume 9.7 fl (7.4-10.4); Monocytes Absolute Auto 0.6 K/mm3 (0.1-0.6); Monocytes Percent Auto 7.1 % (2.6-8.5); Neutrophils Absolute Auto 6.9 K/mm3 (1.3-6.7); Neutrophils Percent Auto 85.1 % (45.5-73.1); Platelet Count Result 149 k/mm3 (150-375); Red Blood Count 3.93 M/mm3 (4.6-6.20); Red Cell Distribution Width 14.2 % (11.5-14.5); White Blood Count 8.1 K/mm3 (4.5-10.0)
[2024-12-26 06:12] LABS: Influenza A QL RT-PCR Positive (Negative); Influenza B QL RT-PCR Negative (Negative); RSV RNA, RT-PCR Negative (Negative); SARS-CoV-2 RNA PCR Negative (Negative)
[2024-12-26 06:13] LABS: Alanine Aminotransferase 18 U/L (6-50); Albumin Level 3.7 g/dL (3.5-5.1); Alkaline Phosphatase 71 U/L (38-126); Anion Gap 7 mmol/L (4-12); Aspartate Amino Transferase 36 U/L (17-59); Bilirubin,Total 0.9 mg/dL (0.2-1.3); Blood Urea Nitrogen 19 mg/dL (9-20); Calcium 8.6 mg/dL (8.4-10.2); Carbon Dioxide 26 mmol/L (22-30); Chloride 97 mmol/L (98-107); Estimated CRCL calculation 42 ml/min; Estimated Glomerular Filt Rate 54; Glucose 128 mg/dL (65-110); Potassium 3.7 mmol/L (3.4-5.0); Sodium 130 mmol/L (137-145)
--- OUTSIDE RECORDS SUMMARY | 2024-12-26 07:36 | XMS_ITS | Clinical Summary ---
Author Organization [facility] Address [address] [place] [address] Care Team Providers Care Welder Assembler Name Role Phone Lyndon Carl Primary Care Provider [phone] Source Comments [facility],non-owned Affiliates and Associated Physician Practices is amultiple site organization consisting of ambulatory clinics and hospital sitesin [place], [place], [place] and [place]. This disclosure is being madepursuant to the Care Everywhere program and may not contain all information available regarding this patient. Last updated 18.[facility] Allergies Active Allergy Reactions Criticality Noted Date Comments Amoxicillin Diarrhea,Nausea and/or Vomiting Medium Sesame Oil Anaphylaxis,Shortness of Breath High 04/21 Shellfish Shortness of Breath,Anaphylaxis High 04/21 Medications * Be aware that medications may not be up to date on this document. Alwaysverify current medications with the patient. Medication Sig Dispensed Refills Start Date End Date Status amLODIPine (Norvasc) 5 MG tablet Take 1 tablet by mouth once daily 08/11/2022 Active levothyroxine (Synthroid) 25 MCG tablet Take 25 mcg by mouth once daily 08/11/2022 Active lovastatin (Mevacor) 20 MG tablet Take 20 mg by mouth once daily Active metFORMIN (Glucophage) 500 MG tablet Take 500 mg by mouth 2 times daily Active rOPINIRole (Requip) 0.5 MG tablet Take 1 tablet by mouth at bedtime 03/22/2022 Active albuterol (Proventil;Ventolin) (2.5 MG/3ML) 0.083% nebulizer solution Inhale 2.5 mg by mouth as needed Active fluticasone-salmeterol (Wixela Inhub) 250-50 MCG/ACT inhaler Inhale 1 puff by mouth once daily Active Active Problems No known active problems Immunizations Name Administration Dates Next Due Marissa Monzon primary monoval ent 12+ yr 0.3mL Purple cap 12/23/2020,12/02/2020 PNEUMOCOCCAL PPV VACCINE 11/21/2005,08/18/2005 Zoster Hzv Vacc Recombinant Inj Im 06/14/2018, Social History Tobacco Use Types Packs/Day Years Used Date Smoking Tobacco: Every Day Cigarettes 2 40 Pipe Cigars Smokeless Tobacco: Never Alcohol Use Standard Drinks/Week Comments Yes 2 (1 standard drink = 0.6 oz pur e alcohol) Sex and Gender Information Value Date Recorded Sex Assigned at Not on file Gender Identity Not on file Sexual Orientation Not on file Last Filed Vital Signs Vital Sign Reading Time Taken Comments Blood Pressure - - Pulse - - Temperature - - Respiratory Rate - - Oxygen Saturation - - Inhaled Oxygen Concentration - - Weight 82.6 kg (182 lb) 08/20/2022 9:42 AM CDT Height 170.2 cm (5' 7) 08/20/2022 9:42 AM CDT Body Mass Index 28.51 08/20/2022 9:42 AM CDT Plan of Treatment Health Maintenance Due Date Last Done Comments DTAP/TDAP/TD VACCINES (1 - Tdap) 1962 PNEUMOCOCCAL VACCINE 50+ (2 of 2 - PCV) 11/21/2006 11/21/2005, 08/18/2005 Respiratory Syncytial Virus (RSV) Vaccine Pt: or over 60 yrs (1 - 1-dose 75+ series) 2018 COVID-19 VACCINE (3 - 2023-2 5 season) 2024 12/23/2020, 12/02/2020 INFLUENZA VACCINE (#1) 2024 DEPRESSION SCREENING 11/21/2024 MEDICARE AWV ? CALENDAR YEAR 2024 ZOSTER VACCINE Completed 06/14/2018, 03/20/2018 HEPATITIS B VACCINE Aged Out No longe r eligible based on patient's age to complete this topic HIB VACCINE Aged Out No longer eligi ble based on patient's age to complete this topic HPV VACCINE Aged Out No longer eligi ble based on patient's age to complete this topic MENINGOCOCCAL (Group B) VACCINE Aged Out No longer eligible b ased on patient's age to complete this topic MENINGOCOCCAL VACCINE Aged Out No kamran moon eligible based on patient's age to complete this topic Care Teams Welder Assembler Relationship Specialty Start Date End Date Lyndon Carl DO [address] [place] [address] [phone] PCP - General 08/13/22
--- OUTSIDE RECORDS SUMMARY | 2024-12-26 07:36 | XMS_ITS | Patient Health Summary ---
Author Organization [facility] Address [address] [place] [address] Care Team Providers Care Sharepoint Consultant Name Role Phone Lyndon Carl Primary Care Provider [phone] [facility],non-owned Affiliates and Associated Physician Practices is amultiple site organization consisting of ambulatory clinics and hospital sitesin [place], [place], [place] and [place]. This disclosure is being madepursuant to the Care Everywhere program and may not contain all information available regarding this patient. Last updated 18.[facility] Allergies * Amoxicillin(Diarrhea,Nausea and/or Vomiting) -Medium Criticality * Sesame Oil(Anaphylaxis,Shortness of Breath) -High Criticality * Shellfish(Shortness of Breath,Anaphylaxis) -High Criticality Medications * Be aware that medications may not be up to date on this document. Alwaysverify current medications with the patient. * amLODIPine (Norvasc) 5 MG tablet(Started 08/11/2022) Take 1 tablet by mouth once daily * levothyroxine (Synthroid) 25 MCG tablet(Started 08/11/2022) Take 25 mcg by mouth once daily * lovastatin (Mevacor) 20 MG tablet Take 20 mg by mouth once daily * metFORMIN (Glucophage) 500 MG tablet Take 500 mg by mouth 2 times daily * rOPINIRole (Requip) 0.5 MG tablet(Started 03/22/2022) Take 1 tablet by mouth at bedtime * albuterol (Proventil;Ventolin) (2.5 MG/3ML) 0.083% nebulizer solution Inhale 2.5 mg by mouth as needed * fluticasone-salmeterol (Wixela Inhub) 250-50 MCG/ACT inhaler Inhale 1 puff by mouth once daily Active Problems No known active problems Immunizations * Covid Pfizer primary monovalent 12+ yr 0.3mL Purple cap(Given 12/23/2020, 12/02/2020) * PNEUMOCOCCAL PPV VACCINE(Given 11/21/2005, 08/18/2005) * Zoster Hzv Vacc Recombinant Inj Im(Given 06/14/2018, 03/20/2018) Social History Tobacco Use Types Packs/Day Years [...] Mass Index 28.51 08/20/2022 9:42 AM CDT Care Teams Sharepoint Consultant Relationship Specialty Start Date End Date Lyndon Carl DO [address] [place] [id number] PCP - General 08/13/22
--- OUTSIDE RECORDS SUMMARY | 2024-12-26 07:36 | XMS_ITS | Clinical Summary ---
Author Organization [facility] Address [address] [place] [address] Care Team Providers Care Sales Representative [employer] Name Role Phone Lyndon Carl DO Primary Care Provider [phone] Allergies Active Allergy Reactions Criticality Noted Date Comments Amoxicillin Nausea and Vomiting High 08/14/2021 Clarithromycin Unknown 03/27/2018 Sesame Seed Unknown 03/27/2019 Shellfish Containing Products Unknown 2018 Crab Medications metFORMIN (GLUCOPHAGE) 500 mg tablet Take 500 mg by mouth 2 times daily with meals. Active albuterol (PROVENTIL,DEBORAH ALVINA) 2.5 mg /3 mL (0.083 %) Solution for Nebulization Take 2.5 mg by inhalation every 6 hours as needed. Active lovastatin (MEVACOR) 20 mg tablet Take 20 mg by mouth daily. Active EPINEPHrine (SYMJEPI) 0.3 mg/0.3 mL Syringe INJECT 0.3MG (0.3ML) INTRAMUSCULARLY ONE-TIME FOR ALLERGIC REACTION/ANAPHYLAXI S. 11/17/20 20 Active amLODIPine (NORVASC) 5 mg tablet 5 mg. 08/11/20 22 Active fluticasone propion-salmeter oL (ADVAIR DISKUS,WIXELA INHUB) 250-50 mcg/dose disk inhaler INHALE 1 INHALATION BY ORAL INHALATION TWICE A DAY FOR BREATHING (OPEN DISKUS; CLICK ONLY ONCE; MAY INHALE TWICE TO COMPLETE DOSE; CLOSE WHEN FINISHED) RINSE MOUTH AND SPIT AFTER EACH USE. 04/06/20 23 Active levothyroxine 50 mcg tablet 50 mcg. 08/24/20 23 Active hydroCHLOROthiaz teresa 25 mg tablet Take 1 Tablet by mouth daily. 09/17/20 24 Active rOPINIRole (REQUIP) 0.5 mg tabletIndication s:Restless leg syndrome, controlled Take 1 Tablet (0.5 mg) by mouth daily at bedtime. 90 Tablet 3 10/09/20 24 Active Active Problems Patient Care Coordination No te Formatting of this note migh t be different from the original. 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 Encounters Date Type Department Care Team Description 12/18/2024 External Device Data STL ABSTRACTION Provider, Abstract 11/23/2024 Abstract [facility] Pulmonology - [facility] [address] [facility] [place] [address] [place] [phone] Ariane Rebolledo, RECONNAISSANCE CREWMEMBER 11/22/2024 Abstract [facility] Pulmonology [facility] [id number] [place] [phone] Ariane Rebolledo, INCK 11/22/2024 Telephone [facility] Pulmonology [facility] [id number] [place] [phone] Avery Roberson MD Information 10/12/2024 Abstract [facility] [address] [facility] [place] [address] [place] [address] Avery Roberson MD 10/09/2024 8:40 AM LEATHER CUTTER Office Visit [facility] Pulmonology [facility] [address] [facility] [place] [address] [place] [address] Avery Roberson MD DAPHNE on CPAP (Primary Dx); Centrilobular emphysema (CMS/HCC); History of tobacco use; Restless leg syndrome, controlled 10/09/2024 Orders Only [facility] Pulmonology - [facility] [address] [facility] [place] [address] [place] [address] Provider, Abstract 10/09/2024 Abstract [facility]mon[facility] [address] [facility] [place] [address] [place] [address] Dave Hatfield MD from Last 3 Months Family History Medical History Relation Name Comments No Known Problems Brother Healthy Daughter Heart Failure Father Avery Cancer Mother Jocelyn Relation Name Status Comments Brother Alive Daughter Alive Father Avery Maternal Grandfather Maternal Grandmother Mother Jocelyn Paternal Grandfather Paternal Grandmother Social History Tobacco Use Types Packs/Day Years Used Date Smoking Tobacco: Former Cigarettes 2 40 0 01/23/1957 - 01/23/1997 Smokeless Tobacco: Never Tobacco Cessation:Counseling Given: Not Answered Alcohol Use Standard Drinks/Week Comments Yes 4 (1 standard drink = 0.6 oz pur e alcohol) Sex and Gender Information Value Date Recorded Sex Assigned at Not on file Legal Sex Male 3:15 PM CDT Gender Identity Not on file Sexual Orientation Not on file Last Filed Vital Signs Vital Sign Reading Time Taken Comments Blood Pressure 136/68 10/09/2024 8:36 AM LEATHER CUTTER Pulse 91 10/09/2024 8:36 AM LEATHER CUTTER Temperature 36.6 ??C (97.9 ??F) 10/09/2024 8:36 AM CS T Respiratory Rate 12 10/09/2024 8:36 AM LEATHER CUTTER Oxygen Saturation 95% 10/09/2024 8:36 AM LEATHER CUTTER Inhaled Oxygen Concentration - - Weight 87.5 kg (193 lb) 10/09/2024 8:36 AM LEATHER CUTTER Height 170.2 cm (5' 7) 10/09/2024 8:36 AM LEATHER CUTTER Body Mass Index 30.23 10/09/2024 8:36 AM LEATHER CUTTER Plan of Treatment Upcoming Encounters Date Type Department Care Team (Late st Contact Info) Description 10/10/2025 8:40 AM LEATHER CUTTER Office Visit [facility] [address] [facility] [place] [address] [place] [address] [place] [address] [facility] [place] [address] [place] [phone] Health Maintenance Due Date Last Done Comments DIABETES ANNUAL FOOT EXAM 1961 DIABETES ANNUAL RETINAL EXAM 1961 DIABETES HBA1C Q 6 MONTHS 1961 DIABETES MICROALBUMIN ANNUAL SCREEN 1961 LDL CHOLESTEROL ANNUAL 1961 DTAP/TDAP/TD VACCINES (1 - Tdap) 1962 RSV VACCINE (60+ or ) (1 - 1-dose 75+ series) 2018 INFLUENZA VACCINE (#1) 2024 PNEUMOCOCCAL VACCINE 65+ YEARS Completed 0 02/18/2015, 02/02/2012, 11/21/2005, Additional history exists ZOSTER VACCINE Completed 06/14/2018, 03/20/2018 Procedures Procedure Name Priority Date/Time Associated Diagnosis Comments CPAP Routine 10/07/2024 9:40 AM LEATHER CUTTER from Last 3 Months Results * CPAP (10/07/2024 9:40 AM LEATHER CUTTER) us Abstract Provider GENERAL EQUIPMENT ORDERABLES F inal Result from Last 3 Months Insurance [facility] MCR Care Teams Sales Representative [employer] Relationship Specialty Start Date End Date Lyndon Carl DO [address] [place] [address] PCP - General Internal Medicine 10/05/24
--- OUTSIDE RECORDS SUMMARY | 2024-12-26 07:36 | XMS_ITS | Referral Summary ---
Author Organization [facility] Address [address] [place] [address] Care Team Providers Care Computer Numerical Control Machinist Name Role Phone Lyndon Carl Primary Care Provider [phone] Source Comments [facility],non-owned Affiliates and Associated Physician Practices is amultiple site organization consisting of ambulatory clinics and hospital sitesin [place], [place], [place] and [place]. This disclosure is being madepursuant to the Care Everywhere program and may not contain all information available regarding this patient. Last updated 18.[facility] Allergies Active Allergy Reactions Criticality Noted Date [...] problems Immunizations Name Administration Dates Next Due Covid Na primary monoval ent 12+ yr 0.3mL Purple [...] 08/20/2022 9:42 AM CDT Plan of Treatment Not on file Care Teams Computer Numerical Control Machinist Relationship Specialty Start Date End Date Lyndon Carl DO [address] [place] [address] PCP - General 08/13/22
--- NOTE | 2024-12-26 09:02 | PC.NURSE ---
pt went for a walk at this time to see how his O2 would do without oxygen. pt O2 dropped to 85% and at the end of the walk the pt said he was feeling SOB. pt placed back on 2L NC
--- NOTE | 2024-12-26 09:22 | ED.GENADULT ---
HPI - General Adult General Chief complaint: Shortness of Breath/Dyspnea Stated complaint: DIFFICULTY IN BREATHING Time Seen by Provider: 12/26/24 07:24 History of Present Illness HPI narrative: patient is a 79-year-old gentleman presents emergency department with chief complaint of shortness of breath patient reports that he has had pneumonia about a month ago reports that also has history of COPD patient reports that started having shortness of breath his initial pulse ox by EMS was 92% was given a DuoNeb and Decadron by EMS patient reports that feels a little better after receiving the breathing treatment. Related Data Home Medications ?Medication ?Instructions ?Recorded ?Confirmed ?Last Taken ?Type cholecalciferol (vitamin D3) 25 1,000 unit PO DAILY 12/05/19 11/17/24 11/16/24 History mcg (1,000 unit) capsule epinephrine 0.3 mg/0.3 mL 0.3 mg IM ONCE 12/05/19 11/17/24 Unknown History injection, auto-injector (EpiPen 2-Gareth) ropinirole 0.5 mg tablet 0.5 mg PO DAILY 12/05/19 11/17/24 11/15/24 History albuterol sulfate 90 mcg/actuation 2 puff inhalation Q4H PRN 12/16/21 11/17/24 11/16/24 History aerosol inhaler (Proventil HFA) Shortness Of Breath fluticasone 250 mcg-salmeterol 50 1 inh inhalation DAILY 11/17/24 11/17/24 11/16/24 History mcg/dose blistr powdr for inhalation (Wixela Inhub) amlodipine 5 mg tablet 5 mg PO DAILY 12/06/24 Unknown History Allergies Allergy/AdvReac Type Severity Reaction Status Date / Time bee pollen Allergy Unknown unknown Verified 12/06/24 13:11 clarithromycin Allergy Unknown uknown Verified 12/06/24 13:11 crab Allergy Unknown Hives Verified 12/06/24 13:11 nut - unspecified Allergy Unknown sesame Verified 12/06/24 13:11 seed oil and nuts sesame oil Allergy Unknown Anaphylactic Verified 12/06/24 13:11 Shock sesame seed Allergy Unknown Anaphylactic Verified 12/06/24 13:11 Shock shellfish derived Allergy Unknown Hives Verified 12/06/24 13:11 amoxicillin (From Augmentin) AdvReac Severe Vomiting Verified 12/06/24 13:11 clavulanic acid (From AdvReac Severe Vomiting Verified 12/06/24 13:11 Augmentin) Review of Systems Review of Systems: A 10 system review of systems was completed on the patient and is negative except for what is stated in the HPI. Nursing and ancillary documentation was reviewed. [facility] Past Medical History Medical History Hearing loss Hyperlipidemia Hypertension Diabetes CKD (chronic kidney disease) DAPHNE (obstructive sleep apnea) COPD (chronic obstructive pulmonary disease) Surgical History Surgical History History of hemorrhoidectomy Family History Family History Mother Carcinoma of colon Father Family history of congestive heart failure Grandparent Diabetes mellitus Sibling Arthritis Other Family history of malignant neoplasm Social History Social History Smoking packs per day: 2 Smoking cigarettes per day: 40.0 Years smoked: 40 Smoking pack-years: 80.00 Smoking status: Former smoker Tobacco type: cigarettes Second hand tobacco smoke exposure: No Smoking end date: 03/21/97 Alcohol intake: current Drinks per week: 3 Substance use: never Substance use type: does not use Do You Feel Safe in your Home?: Yes Lack of Transportation: No Lack of Food: Never True Current Housing: I Have Housing Concerned About Future Housing: No Difficulty Paying Gas/Electric Bills: No Difficulty Paying for Meds: No Currently Unemployed: No Education: Master's Degree or Higher Difficulty w/ Childcare or Family Care: No Living arrangements: with family Occupation/Education: retired 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 HEAD: Normocephalic, atraumatic. EYES: PERRLA and EOMI. ENT: Nares clear, no rhinorrhea or epistaxis. Mucous membranes moist. NECK: Supple. CHEST: Clear to auscultation. No respiratory distress. HEART: Regular rate and rhythm. No murmur heard. Normal peripheral pulses. ABDOMEN: Soft, nontender, nondistended, normal active bowel sounds. EXTREMITIES: Normal range of motion. No edema. SKIN: Warm, dry, no rash. NEURO: No focal deficits. Alert and oriented x3. PSYCH: Normal mood and affect. Course Vital Signs Vital signs: Vital Signs Temperature 37.3 C 12/26/24 05:18 Pulse Rate 128 H 12/26/24 05:18 Respiratory Rate 12 12/26/24 05:18 Blood Pressure 123/63 12/26/24 05:18 Pulse Oximetry 92 12/26/24 05:18 Oxygen Delivery Room Air 12/26/24 05:18 Temperature 36.7 C 12/26/24 06:50 Pulse Rate 111 H 12/26/24 08:00 Respiratory Rate 14 12/26/24 08:00 Blood Pressure 137/81 12/26/24 08:00 Pulse Oximetry 96 12/26/24 09:03 Oxygen Delivery Nasal Cannula 12/26/24 09:03 Oxygen Flow Rate 2 12/26/24 09:03 Medical Decision Making [facility] Narrative Medical decision making narrative: Differential diagnosis includes pneumonia, influenza, viral illness, COVID, COPD exacerbation patient was found to be hypoxic particularly with ambulation required 2 L nasal cannula. Chest x-ray showed atelectasis versus infiltrate patient tested positive for influenza A otherwise laboratory studies were within normal limits. The case was discussed with the hospitalist and the patient be admitted for further care. Patient was started on Rocephin and doxycycline due to the patient having a macrolide allergy Vital Signs Vital Signs: Vital Signs Temperature 37.3 C 12/26/24 05:18 Pulse Rate 128 H 12/26/24 05:18 Respiratory Rate 12 12/26/24 05:18 Blood Pressure 123/63 12/26/24 05:18 Pulse Oximetry 92 12/26/24 05:18 Oxygen Delivery Room Air 12/26/24 05:18 Temperature 36.7 C 12/26/24 06:50 Pulse Rate 111 H 12/26/24 08:00 Respiratory Rate 14 12/26/24 08:00 Blood Pressure 137/81 12/26/24 08:00 Pulse Oximetry 96 12/26/24 09:03 Oxygen Delivery Nasal Cannula 12/26/24 09:03 Oxygen Flow Rate 2 12/26/24 09:03 Lab Data 12/26/24 05:50 12/26/24 05:50 Labs: Lab Results 12/26/24 12/26/24 Range/Units 05:33 05:50 WBC 8.1 (4.5-10.0) K/mm3 RBC 3.93 L (4.6-6.20) M/mm3 Hgb 11.2 L (14.0-18.0) g/dL Hct 34.5 L (42.0-52.0) % MCV 87.8 (80-100) fl MCH 28.5 (26-34) pg MCHC 32.5 (32-36) g/dl RDW 14.2 (11.5-14.5) % Plt Count 149 L (150-375) k/mm3 MPV 9.7 (7.4-10.4) fl Immature Gran % (Auto) 0.5 (0-0.5) % Neut % (Auto) 85.1 H (45.5-73.1) % Lymph % (Auto) 7.0 L (18.3-44.2) % [place] % (Auto) 7.1 (2.6-8.5) % Eos % (Auto) 0.1 (0-4.4) % Baso % (Auto) 0.2 (0.2-1.2) % Lymph # (Auto) 0.57 L (0.9-3.2) K/mm3 [place] # (Auto) 0.6 (0.1-0.6) K/mm3 Eos # (Auto) 0.0 (0-0.3) K/mm3 Baso # (Auto) 0.0 (0.0-0.1) K/mm3 Abs Immat Gran (auto) 0.04 H (0.00-0.031) K/mm3 Absolute Neuts (auto) 6.9 H (1.3-6.7) K/mm3 Absolute Nucleated RBC 0.000 (0.0-0.012) K/mm3 Nucleated RBC % 0.0 (0.0-0.2) % Sodium 130 L (137-145) mmol/L Potassium 3.7 (3.4-5.0) mmol/L Chloride 97 L (98-107) mmol/L Carbon Dioxide 26 (22-30) mmol/L Anion Gap 7 (4-12) mmol/L BUN 19 D (9-20) mg/dL Creatinine 1.27 (0.7-1.3) mg/dL Estim Creat Clear Calc 42 ml/min Estimated GFR 54 L (59 - ) Glucose 128 H (65-110) mg/dL Calcium 8.6 (8.4-10.2) mg/dL Total Bilirubin 0.9 (0.2-1.3) mg/dL AST 36 (17-59) U/L ALT 18 (6-50) U/L Alkaline Phosphatase 71 (38-126) U/L Total Protein 6.0 L (6.3-8.2) g/dL Albumin 3.7 (3.5-5.1) g/dL Influenza A (RT-PCR) Positive A (Negative) Influenza B (RT-PCR) Negative (Negative) RSV (RT-PCR) Negative (Negative) SARS-CoV-2 RNA (RT-PCR) Negative (Negative) Discharge Plan Discharge Clinical Impression: Acute hypoxemic respiratory failure, Influenza A, COPD (chronic obstructive pulmonary disease) Pneumonia Qualifiers: Pneumonia type: due to unspecified organism Laterality: bilateral Lung location: lower lobe of lung Qualified Code(s): J18.9 - Pneumonia, unspecified organism Patient Disposition: Still a Patient Condition: Stable Patient Language: Burmese Prescriptions: No Action amlodipine 5 mg tablet 5 mg PO DAILY prednisone 10 mg tablet 10 mg PO .COMPLEX Qty: 30 0RF Rx Instructions: 10 mg orally Take 4 tablets daily for 3 days, 3 tablets daily for 3 days, 2 tablets daily for 3 days, then 1 tablet daily for 3 days.; fluticasone propion-salmeterol [Wixela Inhub] 250-50 mcg/dose blister with device 1 inh inhalation DAILY ropinirole 0.5 mg tablet 0.5 mg PO DAILY epinephrine [EpiPen 2-Gareth] 0.3 mg/0.3 mL auto-injector 0.3 mg IM ONCE Rx Instructions: as a single dose cholecalciferol (vitamin D3) 25 mcg (1,000 unit) capsule 1,000 unit PO DAILY albuterol sulfate [Proventil HFA] 90 mcg/actuation HFA aerosol inhaler 2 puff INHALATION Q4H PRN (Reason: Shortness Of Breath) metformin 500 mg tablet See Rx Instructions .ROUTE .COMPLEX Qty: 180 1RF Dose Instruction: TAKE 1 TABLET BY MOUTH TWICE A DAY WITH MORNING AND EVENING MEALS Rx Instructions: TAKE 1 TABLET BY MOUTH TWICE A DAY WITH MORNING AND EVENING MEALS lovastatin 20 mg tablet See Rx Instructions .ROUTE .COMPLEX Qty: 90 2RF Dose Instruction: TAKE 1 TABLET BY MOUTH EVERY DAY IN THE EVENING Rx Instructions: TAKE 1 TABLET BY MOUTH EVERY DAY IN THE EVENING albuterol sulfate 2.5 mg /3 mL (0.083 %) solution for nebulization See Rx Instructions .ROUTE .COMPLEX Qty: 75 2RF Dose Instruction: INHALE 2.5 MG (3 ML) VIA NEBULIZER EVERY 6 HOURS NEEDED FOR SHORTNESS OF BREATH OR WHEEZING Rx Instructions: INHALE 2.5 MG (3 ML) VIA NEBULIZER EVERY 6 HOURS NEEDED FOR SHORTNESS OF BREATH OR WHEEZING hydrochlorothiazide 25 mg tablet See Rx Instructions .ROUTE .COMPLEX Qty: 90 1RF Dose Instruction: TAKE 1 TABLET BY MOUTH EVERY DAY Rx Instructions: TAKE 1 TABLET BY MOUTH EVERY DAY levothyroxine 50 mcg tablet See Rx Instructions .ROUTE .COMPLEX Qty: 90 1RF Dose Instruction: TAKE 1 TABLET BY MOUTH EVERY DAY Rx Instructions: TAKE 1 TABLET BY MOUTH EVERY DAY Follow-up/Referrals: Saroj Lujan APRN [Primary Care Provider] - Time of Disposition: 09:32
[2024-12-26] MEDS: OSELTAMIVIR PHOSPHATE 75 MG CAPSULE PO (09:29)
[2024-12-26] MEDS: IPRATROPIUM 0.5 MG/ALBUTEROL SULFATE 2.5 MG AMPUL.NEB 3 ML INHALATION ×2 (09:40→21:31)
[2024-12-26] MEDS: DOXYCYCLINE 100 MG/NS 100 ML 100 MG/100 ML BAG IVPB ×2 (10:11→22:20)
[2024-12-26] MEDS: methylPREDNISolone SOD SUCC 125 MG VIAL 60 MG IV PUSH ×3 (11:13→22:20)
--- NOTE | 2024-12-26 11:28 | PC.NURSE ---
heart healthy lunch tray ordered
--- NOTE | 2024-12-26 12:25 | P.HP_ITS ---
H&P: HPI History of Present Illness Date/Time: 12/26/24 12:25 Chief Complaint: Shortness of Breath Narrative: 79 y/o M presents here with shortness of breath with PMH of COPD, diabetes, CKD, hypertension, hyperlipidemia, and DAPHNE. The patient presents here from home via EMS for breath. The patient was initially seen here on 11/17/2024 for shortness of breath. He was diagnosed with a COPD exacerbation and started on Rocephin and Azithromycin for possible pneumonia. He was treated with IV steroids and discharged on a tapered prednisone dose. Patient was able to be weaned from supplemental O2 to room air prior to discharge on 11/20/2024. Since admission, the patient reports his lungs never felt fully improved from prior. He is now returning today for further evaluation of recurrent shortness of breath. Reports onset on Tuesday (12/24). Upon EMS arrival, the patient was noted to be 92% on room air. He was given a DuoNeb and Decadron prior to arrival. He noted some improvement with these treatments, however remains on supplemental oxygen. He reports accompanying cough (productive), chills, diarrhea, and fever (99.4F). Diarrhea began Tuesday (12/23), estimates he goes 2-3 times per day. He denies congestion, chest pain, diaphoresis, nausea, or vomiting. Initial VS at presentation: 99.1? F, HR 128, RR 12, 123/63, and 92% on 2L RA. ED workup showed: No leukocytosis, hemoglobin 11.2 (previously 11.8 on 11/20/2024), sodium 130, creatinine 1.27 and GFR 54, glucose 128, and patient tested positive for Flu A. He was negative for RSV/COVID. CXR showed left basilar atelectasis versus pneumonia) correlate clinically), and underlying COPD. Review of Systems Review of Systems: All systems reviewed & are unremarkable except as noted in HPI and below PMFSH Past Medical History Medical History COPD (chronic obstructive pulmonary disease) Atherosclerosis of aorta Hypothyroidism T2DM (type 2 diabetes mellitus) Obesity (BMI 30-39.9) GERD (gastroesophageal reflux disease) Restless leg syndrome Asthma Hearing loss Hyperlipidemia Hypertension Diabetes CKD (chronic kidney disease) DAPHNE (obstructive sleep apnea) Surgical History Surgical History History of surgical procedure on mouth surgery on uvula to improve sleep apnea History of hemorrhoidectomy Family History Family History Mother Carcinoma of colon Father Family history of congestive heart failure Grandparent Diabetes mellitus Sibling Arthritis Other Family history of malignant neoplasm Social History Social History Smoking packs per day: 2 Smoking cigarettes per day: 40.0 Years smoked: 40 Smoking pack-years: 80.00 Smoking status: Former smoker Second hand tobacco smoke exposure: No Alcohol intake: current Drinks per week: 3 Substance use: never Substance use type: does not use Do You Feel Safe in your Home?: Yes Lack of Transportation: No Lack of Food: Never True Current Housing: I Have Housing Concerned About Future Housing: No Difficulty Paying Gas/Electric Bills: No Difficulty Paying for Meds: No Currently Unemployed: No Education: Master's Degree or Higher Difficulty w/ Childcare or Family Care: No Living arrangements: with family Occupation/Education: retired 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[employer] Gender identity (if verbalized by the patient): Male Spiritual care concerns: No Meds Home Medications and Allergies Home Medications ?Medication ?Instructions ?Recorded ?Confirmed ?Type cholecalciferol (vitamin D3) 25 2,000 unit PO DAILY 12/05/19 12/26/24 History mcg (1,000 unit) capsule epinephrine 0.3 mg/0.3 mL 0.3 mg IM ONCE 12/05/19 12/26/24 History injection, auto-injector (EpiPen 2-Gareth) ropinirole 0.5 mg tablet 0.5 mg PO DAILY 12/05/19 12/26/24 History albuterol sulfate 90 mcg/actuation 2 puff inhalation Q4H PRN 12/16/21 12/26/24 History aerosol inhaler (Proventil HFA) Shortness Of Breath metformin 500 mg tablet See Rx Instructions .Route 09/12/24 12/26/24 Rx .COMPLEX #180 tabs lovastatin 20 mg tablet See Rx Instructions .Route 11/07/24 12/26/24 Rx .COMPLEX #90 tabs fluticasone 250 mcg-salmeterol 50 1 inh inhalation DAILY 11/17/24 12/26/24 History mcg/dose blistr powdr for inhalation (Darwin Hollis) albuterol sulfate 2.5 mg/3 mL See Rx Instructions .Route 11/27/24 12/26/24 Rx (0.083 %) solution for nebulization .COMPLEX #75 mL amlodipine 5 mg tablet 5 mg PO DAILY 12/06/24 12/26/24 History hydrochlorothiazide 25 mg tablet See Rx Instructions .Route 12/18/24 12/26/24 Rx .COMPLEX #90 tabs levothyroxine 50 mcg tablet See Rx Instructions .Route 12/25/24 12/26/24 Rx .COMPLEX #90 tabs Allergies Allergy/AdvReac Type Severity Reaction Status Date / Time bee pollen Allergy Unknown unknown Verified 12/26/24 11:58 clarithromycin Allergy Unknown uknown Verified 12/26/24 11:58 crab Allergy Unknown Hives Verified 12/26/24 11:58 nut - unspecified Allergy Unknown sesame Verified 12/26/24 11:58 seed oil and nuts sesame oil Allergy Unknown Anaphylactic Verified 12/26/24 11:58 Shock sesame seed Allergy Unknown Anaphylactic Verified 12/26/24 11:58 Shock shellfish derived Allergy Unknown Hives Verified 12/26/24 11:58 amoxicillin (From Augmentin) AdvReac Severe Vomiting Verified 12/26/24 11:58 clavulanic acid (From AdvReac Severe Vomiting Verified 12/26/24 11:58 Augmentin) Vital Signs Vital Signs - 24 hr 12/26/24 05:18 12/26/24 05:18 12/26/24 05:23 Temperature 99.1 F Pulse Rate 128 H 125 H Respiratory Rate 12 Blood Pressure 123/63 Pulse Oximetry 92 92 Oxygen Delivery Room Air Room Air Oxygen Flow Rate 12/26/24 05:24 12/26/24 05:25 12/26/24 06:50 Temperature 98.1 F Pulse Rate 98 Respiratory Rate 12 Blood Pressure 111/60 Pulse Oximetry 97 97 97 Oxygen Delivery Nasal Cannula Nasal Cannula Oxygen Flow Rate 2 2 12/26/24 08:00 12/26/24 08:00 12/26/24 09:00 Temperature Pulse Rate 111 H 113 H Respiratory Rate 14 22 H Blood Pressure 137/81 114/68 Pulse Oximetry 95 95 94 Oxygen Delivery Nasal Cannula Oxygen Flow Rate 1 12/26/24 09:03 12/26/24 09:40 12/26/24 09:45 Temperature Pulse Rate 106 H 105 H Respiratory Rate 11 L 9 L Blood Pressure Pulse Oximetry 96 Oxygen Delivery Nasal Cannula Oxygen Flow Rate 2 12/26/24 10:15 Temperature Pulse Rate 105 H Respiratory Rate 23 H Blood Pressure 122/67 Pulse Oximetry 95 Oxygen Delivery Oxygen Flow Rate Exam Const: General: comfortable and no acute distress Other: , male, obese body habitus, no apparent distress HENMT: Face/Nose/Sinus: Normal nares present Mouth: Yes moist mucous membranes Other: NC in place Eyes: General: appearance normal, both eyes and all related structures Sclera: sclerae normal Pupils: Equal, round and reactive pupils present EOM: EOMs intact bilaterally Resp: Effort & Inspection: normal respiratory effort Other: Expiratory wheezing in all lung kam, faint left basilar crackles. Cardio: Rate: regular rate Rhythm: regular rhythm Other: S1-S2 present without murmur, rub, ectopy GI: Other: Abdomen soft, nondistended, nontender. Normoactive bowel sounds in all quadrants Skin: General skin exam: normal color and no rashes or lesions noted Wounds: no wounds Neuro: Speech: normal speech Motor exam (neuro): 5/5 motor strength present throughout Sensory Exam: normal sensation Other: A&O x4 Extrem: General: normal to inspection Psych: Mental Status: mental status grossly normal Affect: normal affect Other: Good insight and judgment, pleasant H&P: Results Labs Labs: Short CBC 12/26/24 Range/Units 05:50 WBC 8.1 (4.5-10.0) K/mm3 Hgb 11.2 L (14.0-18.0) g/dL Hct 34.5 L (42.0-52.0) % Plt Count 149 L (150-375) k/mm3 BMP 12/26/24 05:50 Sodium 130 L Potassium 3.7 Chloride 97 L Carbon Dioxide 26 BUN 19 D Creatinine 1.27 Glucose 128 H Calcium 8.6 Liver Function 12/26/24 Range/Units 05:50 Total Bilirubin 0.9 (0.2-1.3) mg/dL AST 36 (17-59) U/L ALT 18 (6-50) U/L Alkaline Phosphatase 71 (38-126) U/L Albumin 3.7 (3.5-5.1) g/dL Assessment and Plan Assessment and plan (1) Acute hypoxic respiratory failure: Code(s): J96.01 - Acute respiratory failure with hypoxia Status: Acute Assessment and Plan: - CXR: Left basilar atelectasis versus pneumonia. Correlate clinically. Underlying COPD. - currently requiring 2L NC, no previous baseline requirement. did require supplemental O2 during his last admission for PNA/COPD exacerbation in Oct. - EKG, initial: Sinus tachycardia, rate 118, right bundle branch block. When compared to previous, heart rate has increased. - supplemental care for influenza, see below - started on ABX for hospital-acquired pneumonia, see below - continue supplemental O2, maintain O2 sat above 92%, and wean as tolerated (2) Pneumonia: Qualifiers: Pneumonia type: due to influenza A virus Qualified Code(s): J10.00 - Influenza due to other identified influenza virus with unspecified type of pneumonia Code(s): J18.9 - Pneumonia, unspecified organism Status: Acute Assessment and Plan: - CXR showing possible left basilar pneumonia - risk factors and complicating factors: COPD, Influenza - started on CAP tx: doxycycline and ceftriaxone on 12/26/2024, will increase coverage to cover for HAP given recent admission. Now on doxycycline, cefepime, and vanc. Will DC vanc if MRSA negative. - MRSA PCR and sputum culture ordered - Viral PCR: +flu A - supportive care (3) Influenza A: Code(s): J10.1 - Influenza due to other identified influenza virus with other respiratory manifestations Status: Acute Assessment and Plan: - tested positive for influenza A on 12/26 - Tamiflu 75 mg BID - supportive care: Tylenol p.r.n. Mucinex casandra DuoNeb p.r.n. Lozenge p.r.n. - monitor WBC/CBC - currently requiring increased supplemental O2 (4) COPD exacerbation: Code(s): J44.1 - Chronic obstructive pulmonary disease with (acute) exacerbation Status: Acute Assessment and Plan: - Duo Neb casandra - Solu-Medrol 60 mg IV q.8 - hold home albuterol inhaler/neb and Wixela, resume at d/c (5) T2DM (type 2 diabetes mellitus): Qualifiers: Diabetes mellitus complication status: without complication Diabetes mellitus residential insulin use: without residential use Qualified Code(s): E11.9 - Type 2 diabetes mellitus without complications Code(s): E11.9 - Type 2 diabetes mellitus without complications Status: Chronic Assessment and Plan: - hypoglycemia protocol - POC blood glucose ACHS - home medication: hold metformin - correct regimen ordered - high dose TIDWM, based off BMI. Patient also started on steroids. - A1C 6.5% on 06/29/2024, update (6) Essential hypertension: Code(s): I10 - Essential (primary) hypertension Status: Chronic Assessment and Plan: - chronic, current range: 111/60 - 124/66 - continue home medications: amlodipine, hydrochlorothiazide - monitor Plan Diet: Heart healthy GI Prophylaxis: Not currently indicated DVT Prophylaxis: Lovenox subQ Lines: Peripheral Code Status: Full code Quality VTE Prophylaxis VTE prophylaxis: pharmacologic ordered Hospitalist [facility] Advance Care Plan I have confirmed that the patient's Advanced Care Plan is present, code status is documented, or surrogate decision maker is listed in patient medical record.: Yes Medication Reconciliation I have utilized all available resources to obtain, update and review the patients current medications (includes all prescriptions, OTC, herbals, cannabis, and nutritional supplements).: Yes
--- NOTE | 2024-12-26 13:13 | ADMGEN ---
This patient, Shailesh Cleaning, was admitted to 3 [facility] Surg Room 320-01. Patient/family oriented to hospital policies and general routines including ID bracelet, bed and alarms, visiting hours, pain management, procedures, bathroom and other care routines, personal items, smoking policy, room service/diet, and visiting hours. Information on how to activate the Rapid Response Team has been discussed. Patient/Family are encouraged to report perceived risks to care and to ask questions if they do not understand what they are told or what they should do.
[2024-12-26] MEDS: hydroCHLOROthiazide 25 MG TABLET PO (13:56)
[2024-12-26] MEDS: CEFEPIME 2 GM/NS 50 ML 2 GM/50 ML BAG IVPB ×2 (13:56→21:39)
[2024-12-26 14:26] LABS: Lactic Acid Reflex 2.1 mmol/L (0.7-2.0)
[2024-12-26] MEDS: VANCOMYCIN 1,250 MG/NS 250 ML 1,250 MG/250 ML BAG 166.67 MG IVPB (14:30)
[2024-12-26 14:43] LABS: Procalcitonin 1.3 ng/mL
[2024-12-26] MEDS: LACTATED RINGERS 1,000 ML 999 ML IV CONT (15:08)
[2024-12-26 15:11] LABS: MRSA (PCR) NOT DETECTED (NOT DETECTE)
[2024-12-26] MEDS: VANCOMYCIN 1,000 MG/NS 250 ML 1,000 MG/250 ML BAG 250 MG IVPB (16:24)
[2024-12-26 16:44] LABS: Glucose Point of Care 214 mg/dl (65-105)
--- NOTE | 2024-12-26 16:55 | PCRCNOTE ---
Window of time for administration has passed. See next scheduled administration.
[2024-12-26 17:18] LABS: Reflex Lactic Acid Yes or No Add Lactic
[2024-12-26] MEDS: LOVASTATIN 20 MG TABLET PO (17:44)
[2024-12-26] MEDS: INSULIN ASPART (*BKC) 100 UNITS/ML SUB-Q ×2 (17:44→21:45)
[2024-12-26 18:43] LABS: Lactic Acid 2.4 mmol/L (0.7-2.0)
[2024-12-26 21:08] LABS: Glucose Point of Care 290 mg/dl (65-105)
[2024-12-26] MEDS: ACETAMINOPHEN 325 MG TABLET 650 MG PO (21:37)
[2024-12-26] MEDS: OSELTAMIVIR PHOSPHATE 30 MG CAPSULE PO (21:40)
[2024-12-26] MEDS: guaiFENesin 12 HR 600 MG TABCR PO (21:40)
[2024-12-26 23:21] LABS: Glucose Point of Care 205 mg/dl (65-105)
[2024-12-27] VITALS (14 sets, daily range): BP systolic 113–138; BP diastolic 58–80; PULSE 86–107; RESP 14–22; TEMP 36.8; O2SAT 93–95
[2024-12-27] MEDS: IPRATROPIUM 0.5 MG/ALBUTEROL SULFATE 2.5 MG AMPUL.NEB 3 ML INHALATION ×4 (02:43→21:27)
[2024-12-27] MEDS: methylPREDNISolone SOD SUCC 125 MG VIAL 60 MG IV PUSH ×2 (05:27→13:20)
[2024-12-27] MEDS: LEVOTHYROXINE SODIUM 50 MCG TABLET PO (05:31)
[2024-12-27 07:38] LABS: Basophils Percent Auto 0.1 % (0.2-1.2); Hematocrit 29.8 % (42.0-52.0); Hemoglobin 9.7 g/dL (14.0-18.0); Immature Granulocyte Absolute 0.07 K/mm3 (0.00-0.031); Immature Granulocyte Percent A 0.6 % (0-0.5); Lymphocytes Absolute Auto 0.32 K/mm3 (0.9-3.2); Lymphocytes Percent Auto 2.9 % (18.3-44.2); Mean Corpuscular HGB Conc 32.6 g/dl (32-36); Mean Corpuscular Hemoglobin 28.6 pg (26-34); Mean Corpuscular Volume 87.9 fl (80-100); Monocytes Absolute Auto 0.3 K/mm3 (0.1-0.6); Monocytes Percent Auto 2.9 % (2.6-8.5); Neutrophils Absolute Auto 10.2 K/mm3 (1.3-6.7); Neutrophils Percent Auto 93.5 % (45.5-73.1); Platelet Count Result 125 k/mm3 (150-375); Red Blood Count 3.39 M/mm3 (4.6-6.20); White Blood Count 10.9 K/mm3 (4.5-10.0)
[2024-12-27 07:47] LABS: Alanine Aminotransferase 25 U/L (6-50); Alkaline Phosphatase 70 U/L (38-126); Anion Gap 6 mmol/L (4-12); Aspartate Amino Transferase 38 U/L (17-59); Bilirubin,Total 0.4 mg/dL (0.2-1.3); Blood Urea Nitrogen 21 mg/dL (9-20); Calcium 7.7 mg/dL (8.4-10.2); Carbon Dioxide 27 mmol/L (22-30); Chloride 100 mmol/L (98-107); Estimated CRCL calculation 52 ml/min; Estimated Glomerular Filt Rate > 60; Glucose 192 mg/dL (65-110); Potassium 3.2 mmol/L (3.4-5.0); Sodium 133 mmol/L (137-145)
[2024-12-27] MEDS: OSELTAMIVIR PHOSPHATE 30 MG CAPSULE PO ×2 (08:26→21:20)
[2024-12-27] MEDS: CHOLECALCIFEROL 1,000 UNITS TABLET 2000 UNITS PO (08:26)
[2024-12-27] MEDS: hydroCHLOROthiazide 25 MG TABLET PO (08:27)
[2024-12-27] MEDS: guaiFENesin 12 HR 600 MG TABCR PO ×2 (08:28→21:20)
[2024-12-27] MEDS: rOPINIRole HCL 0.5 MG TABLET PO (08:28)
[2024-12-27] MEDS: CEFEPIME 2 GM/NS 50 ML 2 GM/50 ML BAG IVPB ×2 (08:28→21:21)
[2024-12-27 08:34] LABS: Glucose Point of Care 210 mg/dl (65-105)
[2024-12-27] MEDS: INSULIN ASPART (*BKC) 100 UNITS/ML SUB-Q ×2 (08:36→16:40)
[2024-12-27] MEDS: DOXYCYCLINE 100 MG/NS 100 ML 100 MG/100 ML BAG IVPB ×2 (08:43→22:04)
[2024-12-27] MEDS: ENOXAPARIN 40 MG/0.4 ML SYRINGE SUB-Q (08:43)
--- NOTE | 2024-12-27 09:25 | P.PNIM_ITS ---
Progress Note: A&P Assessment and Plan (1) Acute hypoxic respiratory failure: Code(s): J96.01 - Acute respiratory failure with hypoxia Status: Acute Assessment and Plan: * Chest x-ray showing left basilar atelectasis versus pneumonia, underlying COPD * Wean O2 for sat greater than 92%, currently on 2 L nasal cannula * Positive for influenza A * Continue Tamiflu * Continue Cefepime and Doxycycline * Continue Duonebs (2) Pneumonia: Qualifiers: Pneumonia type: due to influenza A virus Qualified Code(s): J10.00 - Influenza due to other identified influenza virus with unspecified type of pneumonia Code(s): J18.9 - Pneumonia, unspecified organism Status: Acute Assessment and Plan: * CXR showing possible left basilar pneumonia * Respiratory panel positive for Influenza A * Continue Tamiflu * Continue Mucinex * Start Pep therapy and IS while awake * encourage out of bed * Continue Doxycycline and Cefepime * Wean O2 for saturation greater than 92% * Supportive care (3) Influenza A: Code(s): J10.1 - Influenza due to other identified influenza virus with other respiratory manifestations Status: Acute Assessment and Plan: see above (4) COPD exacerbation: Code(s): J44.1 - Chronic obstructive pulmonary disease with (acute) exacerbation Status: Acute Assessment and Plan: * continue Duonebs * Continue solumedrol, start tapering (5) T2DM (type 2 diabetes mellitus): Qualifiers: Diabetes mellitus complication status: without complication Diabetes mellitus predatory animal exterminator insulin use: without predatory animal exterminator use Qualified Code(s): E11.9 - Type 2 diabetes mellitus without complications Code(s): E11.9 - Type 2 diabetes mellitus without complications Status: Chronic Assessment and Plan: * Blood sugars ranging 192-222 * Hgb A1C 6.5 * Accu checks AC/HS * high dose SSI ordered * hypoglycemic protocol in place * Diabetic diet ordered (6) Essential hypertension: Code(s): I10 - Essential (primary) hypertension Status: Chronic Assessment and Plan: * Blood pressure ranging 113/58-131/63 * Continue amlodipine and hydrochlorothiazide Time Spent With Patient Time with patient: 25 - 35 minutes Subjective Date/time seen: 12/27/24 09:25 Interval history: Interval history: This is an 79-year-old male with a significant past medical history of COPD, hypothyroidism, type 2 diabetes mellitus, obesity, GERD, restless leg syndrome, asthma, hyperlipidemia, hypertension, chronic kidney disease, DAPHNE, former smoker who presented to the hospital on 12/26/2024 with shortness of breath/dyspnea and acute respiratory failure requiring O2 at 2 L. Workup in the hospital included a chest x-ray which showed left basilar atelectasis versus pneumonia, underlying COPD. Initial labs showed a white blood cell count of 8.1, hemoglobin 11.2, platelet count 149, sodium 130, chloride 97, EGFR 54, blood sugars 128-290, lactic acid 2.1> 2.4, procalcitonin 1.3, MRSA was not detected. Respiratory panel was positive for influenza A. Sputum and blood cultures were obtained and pending. EKG showed sinus tachycardia with right bundle branch block with a rate of 118, QTC 467. Patient was started on Rocephin, doxycycline, vancomycin, Solu-Medrol, 1 L of LR, and started on Tamiflu. Subjective: Patient denies any new complaints today. Labs reviewed. Review of Systems Review of Systems: All systems reviewed & are unremarkable except as noted in HPI and below Exam Narrative: General: In no acute distress, well nourished Head: atraumatic, no encephalopathy Eyes: PERRLA, sclera clear ENT: moist mucous membranes, nasal passages clear Neck: supple, no JVD, no adenopathy, trachea midline Cardiac: Normal S1 and S2. No murmur, gallops or friction rubs, peripheral pulses intact. Respiratory: Lungs clear to auscultation, no adventitious lung sounds, currently on 2L NC Gastrointestinal: soft, non-distended, non-tender, normoactive bowel sounds. : voiding without difficulty. Extremities: moves all extremities well, no edema Skin: clean, dry, intact. No wounds or lesions. Neuro: Alert and oriented x4, cranial nerves intact, no neuro deficits. Psych: normal mood, normal affect, interactive Objective Data Vital Signs Vital Signs: Vital Signs - 24 hr 12/26/24 09:40 12/26/24 09:45 12/26/24 10:15 Temperature Pulse Rate 106 H 105 H 105 H Respiratory Rate 11 L 9 L 23 H Blood Pressure 122/67 Pulse Oximetry 95 Oxygen Delivery Oxygen Flow Rate Fraction of Inspired Oxygen 12/26/24 14:00 12/26/24 21:31 12/26/24 21:34 Temperature 99 F Pulse Rate 102 H 101 H 101 H Respiratory Rate 20 18 Blood Pressure 124/62 Pulse Oximetry 95 95 Oxygen Delivery Nasal Cannula Oxygen Flow Rate 2 Fraction of Inspired Oxygen 28 12/26/24 21:37 12/26/24 21:44 12/26/24 22:00 Temperature 100.9 F H 100.9 F H Pulse Rate 103 H 103 H Respiratory Rate 16 20 Blood Pressure 125/56 L Pulse Oximetry 94 Oxygen Delivery Oxygen Flow Rate Fraction of Inspired Oxygen 12/26/24 22:30 12/26/24 22:40 12/27/24 02:43 Temperature 99.8 F H Pulse Rate 101 H 105 H Respiratory Rate 18 Blood Pressure Pulse Oximetry 94 Oxygen Delivery CPAP Oxygen Flow Rate Fraction of Inspired Oxygen 12/27/24 02:47 12/27/24 02:50 12/27/24 05:25 Temperature 98.3 F Pulse Rate 105 H 101 H 107 H Respiratory Rate 18 14 Blood Pressure 113/58 L Pulse Oximetry 95 93 Oxygen Delivery CPAP Oxygen Flow Rate Fraction of Inspired Oxygen 12/27/24 08:47 12/27/24 08:51 12/27/24 09:05 Temperature Pulse Rate 86 86 Respiratory Rate 18 18 Blood Pressure Pulse Oximetry 94 Oxygen Delivery Nasal Cannula Oxygen Flow Rate 2 Fraction of Inspired Oxygen 2 Intake/Output Intake/Output: Intake & Output 12/24/24 12/25/24 12/26/24 12/27/24 23:59 23:59 23:59 23:59 Intake Total 2086 490 Output Total 400 700 Balance 1686 -210 Meds/Results Medications: Active Medications Generic Name Dose Route Start Last Admin Trade Name Freq PRN Reason Stop Dose Admin Acetaminophen 650 mg 12/26/24 09:21 12/26/24 21:37 Acetaminophen 325 Mg Tablet PO 650 mg Q4H PRN Administration Mild Pain (1-3) or Fever Albuterol/Ipratropium 3 ml 12/26/24 09:30 12/27/24 08:47 Ipratropium 0.5 Mg/Albuterol Sulfate 2.5 Mg Ampul.Neb 3 Ml INHALATION 3 ml Q6HRT BENJAMIN Administration Amlodipine Besylate 5 mg 12/27/24 09:00 12/27/24 08:27 Amlodipine Besylate 5 Mg Tablet PO Not Given DAILY BENJAMIN Benzocaine 1 lozenge 12/26/24 12:36 Benzocaine/Menthol (*Bkc) 18 Ea Lozenge PO PRN PRN Sore Throat Dextrose 12.5 gm 12/26/24 12:44 Dextrose 50% 25 Gm/50 Ml Syringe IV PUSH PRN PRN Hypoglycemia Protocol Diphenhydramine HCl 25 mg 12/26/24 12:54 Diphenhydramine Hcl Inj 50 Mg/Ml Vial IV PUSH Q4H PRN Allergic Reaction Enoxaparin Sodium 40 mg 12/27/24 09:00 12/27/24 08:43 Enoxaparin 40 Mg/0.4 Ml Syringe SUB-Q 40 mg DAILY BENJAMIN Administration Glucagon 1 mg 12/26/24 12:44 Glucagon For Inj 1 Mg Vial IM PRN PRN Hypoglycemia Protocol Glucose 15 gm 12/26/24 12:44 Glucose Oral Gel 15 Gm Of Glucse In 37.5 Gm Tube PO PRN PRN Hypoglycemia Protocol Guaifenesin 600 mg 12/26/24 21:00 12/27/24 08:28 Guaifenesin 12 Hr 600 Mg Tabcr PO 600 mg Q12HR BENJAMIN Administration Hydrochlorothiazide 25 mg 12/26/24 12:45 12/27/24 08:27 Hydrochlorothiazide 25 Mg Tablet PO 25 mg DAILY BENJAMIN Administration Doxycycline Hyclate 100 mg in 100 mls @ 100 mls/hr 12/26/24 21:00 12/27/24 08:43 Vibramycin 100 Mg/Ns 100 Ml IVPB 100 mls/hr Q12H BENJAMIN Administration Dextrose 1,000 mls @ 100 mls/hr 12/26/24 12:44 Dextrose 5% 1,000 Ml IVPB PRN PRN Hypoglycemia Protocol Cefepime HCl 2 gm in 50 mls @ 100 mls/hr 12/26/24 12:50 12/27/24 08:58 Maxipime 2 Gm/Ns 50 Ml IVPB Infused Q12HR BENJAMIN Infusion Insulin Aspart 4 - 8 units 12/26/24 17:00 12/27/24 08:36 Insulin Aspart (*Bkc) 100 Units/Ml SUB-Q 4 units TIDWM BENJAMIN Administration Protocol Levothyroxine Sodium 50 mcg 12/27/24 06:30 12/27/24 05:31 Levothyroxine Sodium 50 Mcg Tablet PO 50 mcg DAILY@0630 BENJAMIN Administration Lovastatin 20 mg 12/26/24 18:00 12/26/24 17:44 Lovastatin 20 Mg Tablet PO 20 mg EVENING BENJAMIN Administration Methylprednisolone Sodium Succinate 60 mg 12/26/24 14:00 12/27/24 05:27 Methylprednisolone Sod Succ 125 Mg Vial IV PUSH 60 mg Q8HR BENJAMIN Administration Miscellaneous Information 1 each 12/26/24 00:01 Epi Pen Nonformulary. Okay To Hold While Inpatient? XX 01/25/25 00:00 CLARIFY BENJAMIN Non-Formulary Medication 0.3 mg 12/26/24 12:45 Epinephrine [Epipen 2-Gareth] IM 01/25/25 12:44 ONCE PRN Allergic Reaction Oseltamivir Phosphate 30 mg 12/26/24 21:00 12/27/24 08:26 Oseltamivir Phosphate 30 Mg Capsule PO 12/30/24 21:01 30 mg Q12HR BENJAMIN Administration Ropinirole HCl 0.5 mg 12/27/24 09:00 12/27/24 08:28 Ropinirole Hcl 0.5 Mg Tablet PO 0.5 mg DAILY BENJAMIN Administration Vitamin D 2,000 units 12/27/24 09:00 12/27/24 08:26 Cholecalciferol 1,000 Units Tablet PO 2,000 units DAILY BENJAMIN Administration Radiology Results: ITS Impressions Chest X-Ray 12/26/24 06:24 Impression: Left basilar atelectasis versus pneumonia. Correlate clinically. Underlying COPD. Labs Labs: Laboratory Results - last 24 hr 12/26/24 12/26/24 12/26/24 13:48 14:00 16:41 WBC RBC Hgb Hct MCV MCH MCHC RDW Plt Count MPV Immature Gran % (Auto) Neut % (Auto) Lymph % (Auto) Benzie % (Auto) Eos % (Auto) Baso % (Auto) Lymph # (Auto) Benzie # (Auto) Eos # (Auto) Baso # (Auto) Abs Immat Gran (auto) Absolute Neuts (auto) Absolute Nucleated RBC Nucleated RBC % Sodium Potassium Chloride Carbon Dioxide Anion Gap BUN Creatinine Estim Creat Clear Calc Estimated GFR Glucose POC Capillary Glucose 214 H Lactic Acid 2.1 H Calcium Total Bilirubin AST ALT Alkaline Phosphatase Total Protein Albumin Procalcitonin 1.3 Nasal MRSA (PCR) Not detected 12/26/24 12/26/24 12/26/24 18:16 19:40 23:19 WBC RBC Hgb Hct MCV MCH MCHC RDW Plt Count MPV Immature Gran % (Auto) Neut % (Auto) Lymph % (Auto) Benzie % (Auto) Eos % (Auto) Baso % (Auto) Lymph # (Auto) Benzie # (Auto) Eos # (Auto) Baso # (Auto) Abs Immat Gran (auto) Absolute Neuts (auto) Absolute Nucleated RBC Nucleated RBC % Sodium Potassium Chloride Carbon Dioxide Anion Gap BUN Creatinine Estim Creat Clear Calc Estimated GFR Glucose POC Capillary Glucose 290 H 205 H Lactic Acid 2.4 H Calcium Total Bilirubin AST ALT Alkaline Phosphatase Total Protein Albumin Procalcitonin Nasal MRSA (PCR) 12/27/24 12/27/24 06:45 08:10 WBC 10.9 H RBC 3.39 L Hgb 9.7 L Hct 29.8 L MCV 87.9 MCH 28.6 MCHC 32.6 RDW 14.0 Plt Count 125 L MPV 10.0 Immature Gran % (Auto) 0.6 H Neut % (Auto) 93.5 H Lymph % (Auto) 2.9 L Benzie % (Auto) 2.9 Eos % (Auto) 0.0 Baso % (Auto) 0.1 L Lymph # (Auto) 0.32 L Benzie # (Auto) 0.3 Eos # (Auto) 0.0 Baso # (Auto) 0.0 Abs Immat Gran (auto) 0.07 H Absolute Neuts (auto) 10.2 H Absolute Nucleated RBC 0.000 Nucleated RBC % 0.0 Sodium 133 L Potassium 3.2 L Chloride 100 Carbon Dioxide 27 Anion Gap 6 BUN 21 H Creatinine 1.03 Estim Creat Clear Calc 52 Estimated GFR > 60 Glucose 192 H POC Capillary Glucose 210 H Lactic Acid Calcium 7.7 L Total Bilirubin 0.4 AST 38 ALT 25 Alkaline Phosphatase 70 Total Protein 5.0 L Albumin 3.0 L Procalcitonin Nasal MRSA (PCR) Quality VTE Prophylaxis VTE prophylaxis: pharmacologic ordered
[2024-12-27 12:10] LABS: Glucose Point of Care 189 mg/dl (65-105)
[2024-12-27 16:33] LABS: Glucose Point of Care 222 mg/dl (65-105)
[2024-12-27] MEDS: LOVASTATIN 20 MG TABLET PO (17:18)
[2024-12-27] MEDS: methylPREDNISolone SOD SUCC 40 MG VIAL IV PUSH (21:20)
[2024-12-27 21:35] LABS: Glucose Point of Care 155 mg/dl (65-105)
[2024-12-28] VITALS (12 sets, daily range): BP systolic 139–149; BP diastolic 68–95; PULSE 77–98; RESP 12–20; TEMP 36.3–36.7; O2SAT 92–98
[2024-12-28] MEDS: methylPREDNISolone SOD SUCC 40 MG VIAL IV PUSH ×2 (05:25→13:32)
[2024-12-28] MEDS: LEVOTHYROXINE SODIUM 50 MCG TABLET PO (05:26)
--- NOTE | 2024-12-28 05:45 | PCRCNOTE ---
Window of time for administration has passed. See next scheduled administration.
[2024-12-28] MEDS: IPRATROPIUM 0.5 MG/ALBUTEROL SULFATE 2.5 MG AMPUL.NEB 3 ML INHALATION ×3 (06:24→21:15)
[2024-12-28 07:56] LABS: Glucose Point of Care 178 mg/dl (65-105)
[2024-12-28 08:06] LABS: Estimated CRCL calculation 58 ml/min; Estimated Glomerular Filt Rate > 60
[2024-12-28] MEDS: guaiFENesin 12 HR 600 MG TABCR PO ×2 (08:07→22:03)
[2024-12-28] MEDS: hydroCHLOROthiazide 25 MG TABLET PO (08:07)
[2024-12-28] MEDS: CHOLECALCIFEROL 1,000 UNITS TABLET 2000 UNITS PO (08:07)
[2024-12-28] MEDS: CEFEPIME 2 GM/NS 50 ML 2 GM/50 ML BAG IVPB ×2 (08:07→22:04)
[2024-12-28] MEDS: OSELTAMIVIR PHOSPHATE 30 MG CAPSULE PO ×2 (08:07→22:04)
[2024-12-28] MEDS: amLODIPine BESYLATE 5 MG TABLET PO (08:07)
[2024-12-28] MEDS: DOXYCYCLINE 100 MG/NS 100 ML 100 MG/100 ML BAG IVPB ×2 (09:09→22:30)
[2024-12-28] MEDS: ENOXAPARIN 40 MG/0.4 ML SYRINGE SUB-Q (09:09)
[2024-12-28 10:06] LABS: Hematocrit 31.4 % (42.0-52.0); Hemoglobin 10.4 g/dL (14.0-18.0); Mean Corpuscular HGB Conc 33.1 g/dl (32-36); Mean Corpuscular Hemoglobin 29.2 pg (26-34); Mean Corpuscular Volume 88.2 fl (80-100); Platelet Count Result 148 k/mm3 (150-375); Red Blood Count 3.56 M/mm3 (4.6-6.20); Red Cell Distribution Width 14.1 % (11.5-14.5)
[2024-12-28 10:24] LABS: Alanine Aminotransferase 22 U/L (6-50); Albumin Level 3.2 g/dL (3.5-5.1); Alkaline Phosphatase 77 U/L (38-126); Anion Gap 9 mmol/L (4-12); Aspartate Amino Transferase 32 U/L (17-59); Bilirubin,Total 0.4 mg/dL (0.2-1.3); Blood Urea Nitrogen 29 mg/dL (9-20); Calcium 8.4 mg/dL (8.4-10.2); Carbon Dioxide 24 mmol/L (22-30); Chloride 101 mmol/L (98-107); Estimated CRCL calculation 59 ml/min; Estimated Glomerular Filt Rate > 60; Glucose 165 mg/dL (65-110); Potassium 3.3 mmol/L (3.4-5.0); Sodium 134 mmol/L (137-145)
[2024-12-28 11:29] LABS: Glucose Point of Care 182 mg/dl (65-105)
--- NOTE | 2024-12-28 13:45 | P.PNIM_ITS ---
Progress Note: A&P Assessment and Plan (1) Acute hypoxic respiratory failure: Code(s): J96.01 - Acute respiratory failure with hypoxia Status: Acute Assessment and Plan: * Chest x-ray showing left basilar atelectasis versus pneumonia, underlying COPD * Wean O2 for sat greater than 92%, currently on 2 L nasal cannula * Positive for influenza A * Continue Tamiflu * Continue Cefepime and Doxycycline * Continue Duonebs 12/28 * no change to current treatment * Continue to wean O2 for a saturation greater than 92% (2) Pneumonia: Qualifiers: Pneumonia type: due to influenza A virus Qualified Code(s): J10.00 - Influenza due to other identified influenza virus with unspecified type of pneumonia Code(s): J18.9 - Pneumonia, unspecified organism Status: Acute Assessment and Plan: * CXR showing possible left basilar pneumonia * Respiratory panel positive for Influenza A * Continue Tamiflu * Continue Mucinex * Start Pep therapy and IS while awake * encourage out of bed * Continue Doxycycline and Cefepime * Wean O2 for saturation greater than 92% * Supportive care 12/28 * continue pep therapy and incentive spirometry * continue Tamiflu and Mucinex (3) Influenza A: Code(s): J10.1 - Influenza due to other identified influenza virus with other respiratory manifestations Status: Acute Assessment and Plan: see above (4) COPD exacerbation: Code(s): J44.1 - Chronic obstructive pulmonary disease with (acute) exacerbation Status: Acute Assessment and Plan: * continue Duonebs * Continue solumedrol, start tapering 12/28 * decreased solumedrol to 40 mg BID * continue duo-nebs (5) T2DM (type 2 diabetes mellitus): Qualifiers: Diabetes mellitus long filler cigar roller machine insulin use: without prison use Diabetes mellitus complication status: without complication Qualified Code(s): E11.9 - Type 2 diabetes mellitus without complications Code(s): E11.9 - Type 2 diabetes mellitus without complications Status: Chronic Assessment and Plan: * Blood sugars ranging 192-222 * Hgb A1C 6.5 * Accu checks AC/HS * high dose SSI ordered * hypoglycemic protocol in place * Diabetic diet ordered (6) Essential hypertension: Code(s): I10 - Essential (primary) hypertension Status: Chronic Assessment and Plan: * Blood pressure ranging 113/58-131/63 * Continue amlodipine and hydrochlorothiazide 12/28 * No change Time Spent With Patient Time with patient: 25 - 35 minutes Subjective Date/time seen: 12/28/24 13:45 Interval history: Interval history: This is an 79-year-old male with a significant past medical history of COPD, hypothyroidism, type 2 diabetes mellitus, obesity, GERD, restless leg syndrome, asthma, hyperlipidemia, hypertension, chronic kidney disease, DAPHNE, former smoker who presented to the hospital on 12/26/2024 with shortness of breath/dyspnea and acute respiratory failure requiring O2 at 2 L. Workup in the hospital included a chest x-ray which showed left basilar atelectasis versus pneumonia, underlying COPD. Initial labs showed a white blood cell count of 8.1, hemoglobin 11.2, platelet count 149, sodium 130, chloride 97, EGFR 54, blood sugars 128-290, lactic acid 2.1> 2.4, procalcitonin 1.3, MRSA was not detected. Respiratory panel was positive for influenza A. Sputum and blood cultures were obtained and pending. EKG showed sinus tachycardia with right bundle branch block with a rate of 118, QTC 467. Patient was started on Rocephin, doxycycline, vancomycin, Solu-Medrol, 1 L of LR, and started on Tamiflu. Subjective: Patient denies any new complaints today. Labs reviewed. Review of Systems Review of Systems: All systems reviewed & are unremarkable except as noted in HPI and below Exam Narrative: General: In no acute distress, well nourished Cardiac: Normal S1 and S2. No murmur, gallops or friction rubs, peripheral pulses intact. Respiratory: Lungs clear to auscultation, no adventitious lung sounds, currently on 2L NC Gastrointestinal: soft, non-distended, non-tender, normoactive bowel sounds. : voiding without difficulty. Extremities: moves all extremities well, no edema Skin: clean, dry, intact. No wounds or lesions. Neuro: Alert and oriented x4 Objective Data Vital Signs Vital Signs: Vital Signs - 24 hr 12/27/24 14:00 12/27/24 21:08 12/27/24 21:10 Temperature 98.2 F 98.2 F Pulse Rate 97 98 Respiratory Rate 22 H 16 Blood Pressure 131/63 138/80 Pulse Oximetry 95 95 95 Oxygen Delivery Nasal Cannula Oxygen Flow Rate 2 12/27/24 21:27 12/27/24 21:32 12/28/24 06:00 Temperature 98.0 F Pulse Rate 95 95 96 Respiratory Rate 18 16 Blood Pressure 149/95 H Pulse Oximetry 95 95 Oxygen Delivery Nasal Cannula Oxygen Flow Rate 2 12/28/24 06:24 12/28/24 06:31 12/28/24 08:05 Temperature Pulse Rate 95 91 Respiratory Rate 16 16 Blood Pressure Pulse Oximetry 94 Oxygen Delivery Nasal Cannula Oxygen Flow Rate 2 Intake/Output Intake/Output: Intake & Output 12/25/24 12/26/24 12/27/24 12/28/24 23:59 23:59 23:59 23:59 Intake Total 2086 2216 890 Output Total 400 1000 1200 Balance 1686 1216 310 Meds/Results Medications: Active Medications Generic Name Dose Route Start Last Admin Trade Name Freq PRN Reason Stop Dose Admin Acetaminophen 650 mg 12/26/24 09:21 12/26/24 21:37 Acetaminophen 325 Mg Tablet PO 650 mg Q4H PRN Administration Mild Pain (1-3) or Fever Albuterol/Ipratropium 3 ml 12/26/24 09:30 12/28/24 06:24 Ipratropium 0.5 Mg/Albuterol Sulfate 2.5 Mg Ampul.Neb 3 Ml INHALATION 3 ml Q6HRT BENJAMIN Administration Amlodipine Besylate 5 mg 12/27/24 09:00 12/28/24 08:07 Amlodipine Besylate 5 Mg Tablet PO 5 mg DAILY BENJAMIN Administration Benzocaine 1 lozenge 12/26/24 12:36 Benzocaine/Menthol (*Bkc) 18 Ea Lozenge PO PRN PRN Sore Throat Cyanocobalamin 2,000 mcg 12/28/24 10:34 Cyanocobalamin 1,000 Mcg Tablet PO DAILY BENJAMIN Dextrose 12.5 gm 12/26/24 12:44 Dextrose 50% 25 Gm/50 Ml Syringe IV PUSH PRN PRN Hypoglycemia Protocol Diphenhydramine HCl 25 mg 12/26/24 12:54 Diphenhydramine Hcl Inj 50 Mg/Ml Vial IV PUSH Q4H PRN Allergic Reaction Enoxaparin Sodium 40 mg 12/27/24 09:00 12/28/24 09:09 Enoxaparin 40 Mg/0.4 Ml Syringe SUB-Q 40 mg DAILY BENJAMIN Administration Glucagon 1 mg 12/26/24 12:44 Glucagon For Inj 1 Mg Vial IM PRN PRN Hypoglycemia Protocol Glucose 15 gm 12/26/24 12:44 Glucose Oral Gel 15 Gm Of Glucse In 37.5 Gm Tube PO PRN PRN Hypoglycemia Protocol Guaifenesin 600 mg 12/26/24 21:00 12/28/24 08:07 Guaifenesin 12 Hr 600 Mg Tabcr PO 600 mg Q12HR BENJAMIN Administration Hydrochlorothiazide 25 mg 12/26/24 12:45 12/28/24 08:07 Hydrochlorothiazide 25 Mg Tablet PO 25 mg DAILY BENJAMIN Administration Doxycycline Hyclate 100 mg in 100 mls @ 100 mls/hr 12/26/24 21:00 12/28/24 10:09 Vibramycin 100 Mg/Ns 100 Ml IVPB Infused Q12H BENJAMIN Infusion Dextrose 1,000 mls @ 100 mls/hr 12/26/24 12:44 Dextrose 5% 1,000 Ml IVPB PRN PRN Hypoglycemia Protocol Cefepime HCl 2 gm in 50 mls @ 100 mls/hr 12/26/24 12:50 12/28/24 08:37 Maxipime 2 Gm/Ns 50 Ml IVPB Infused Q12HR BENJAMIN Infusion Insulin Aspart 4 - 8 units 12/26/24 17:00 12/28/24 11:42 Insulin Aspart (*Bkc) 100 Units/Ml SUB-Q Not Given TIDWM BENJAMIN Protocol Levothyroxine Sodium 50 mcg 12/27/24 06:30 12/28/24 05:26 Levothyroxine Sodium 50 Mcg Tablet PO 50 mcg DAILY@0630 BENJAMIN Administration Lovastatin 20 mg 12/26/24 18:00 12/27/24 17:18 Lovastatin 20 Mg Tablet PO 20 mg EVENING BENJAMIN Administration Methylprednisolone Sodium Succinate 40 mg 12/27/24 22:00 12/28/24 13:32 Methylprednisolone Sod Succ 40 Mg Vial IV PUSH 40 mg Q8HR BENJAMIN Administration Oseltamivir Phosphate 30 mg 12/26/24 21:00 12/28/24 08:07 Oseltamivir Phosphate 30 Mg Capsule PO 12/30/24 21:01 30 mg Q12HR BENJAMIN Administration Ropinirole HCl 0.5 mg 12/28/24 21:00 Ropinirole Hcl 0.5 Mg Tablet PO HS [facility] Vitamin D 2,000 units 12/29/24 21:00 Cholecalciferol 1,000 Units Tablet PO HS [facility] Radiology Results: ITS Impressions Chest X-Ray 12/26/24 06:24 Impression: Left basilar atelectasis versus pneumonia. Correlate clinically. Underlying COPD. Labs Labs: Laboratory Results - last 24 hr 12/27/24 12/27/24 12/28/24 16:22 21:15 07:25 WBC 14.0 H RBC 3.56 L Hgb 10.4 L Hct 31.4 L MCV 88.2 MCH 29.2 MCHC 33.1 RDW 14.1 Plt Count 148 L MPV 10.0 Sodium 134 L Potassium 3.3 L Chloride 101 Carbon Dioxide 24 Anion Gap 9 BUN 29 H Creatinine 0.92 Estim Creat Clear Calc Estimated GFR Glucose POC Capillary Glucose 222 H 155 H Calcium Total Bilirubin AST ALT Alkaline Phosphatase Total Protein Albumin 12/28/24 12/28/24 12/28/24 07:25 07:25 07:25 WBC RBC Hgb Hct MCV MCH MCHC RDW Plt Count MPV Sodium Potassium Chloride Carbon Dioxide Anion Gap BUN Creatinine 0.90 Estim Creat Clear Calc 58 59 Estimated GFR > 60 > 60 Glucose 165 H POC Capillary Glucose Calcium 8.4 Total Bilirubin 0.4 AST 32 ALT 22 Alkaline Phosphatase 77 Total Protein 6.0 L Albumin 3.2 L 12/28/24 12/28/24 07:52 11:22 WBC RBC Hgb Hct MCV MCH MCHC RDW Plt Count MPV Sodium Potassium Chloride Carbon Dioxide Anion Gap BUN Creatinine Estim Creat Clear Calc Estimated GFR Glucose POC Capillary Glucose 178 H 182 H Calcium Total Bilirubin AST ALT Alkaline Phosphatase Total Protein Albumin Quality VTE Prophylaxis VTE prophylaxis: pharmacologic ordered
[2024-12-28 16:40] LABS: Glucose Point of Care 143 mg/dl (65-105)
[2024-12-28] MEDS: LOVASTATIN 20 MG TABLET PO (17:15)
[2024-12-28 20:04] LABS: Glucose Point of Care 196 mg/dl (65-105)
[2024-12-28] MEDS: rOPINIRole HCL 0.5 MG TABLET PO (22:03)
[2024-12-29] VITALS (15 sets, daily range): BP systolic 129–131; BP diastolic 62–73; PULSE 72–105; RESP 16–20; TEMP 36.4–36.8; O2SAT 95–100
[2024-12-29] MEDS: IPRATROPIUM 0.5 MG/ALBUTEROL SULFATE 2.5 MG AMPUL.NEB 3 ML INHALATION ×4 (03:28→20:52)
[2024-12-29] MEDS: LEVOTHYROXINE SODIUM 50 MCG TABLET PO (06:14)
[2024-12-29 06:47] LABS: Basophils Percent Auto 0.1 % (0.2-1.2); Hematocrit 32.4 % (42.0-52.0); Hemoglobin 10.5 g/dL (14.0-18.0); Immature Granulocyte Absolute 0.11 K/mm3 (0.00-0.031); Lymphocytes Absolute Auto 0.77 K/mm3 (0.9-3.2); Mean Corpuscular HGB Conc 32.4 g/dl (32-36); Mean Corpuscular Hemoglobin 28.3 pg (26-34); Mean Corpuscular Volume 87.3 fl (80-100); Mean Platelet Volume 9.2 fl (7.4-10.4); Monocytes Absolute Auto 0.7 K/mm3 (0.1-0.6); Neutrophils Absolute Auto 9.5 K/mm3 (1.3-6.7); Neutrophils Percent Auto 85.9 % (45.5-73.1); Platelet Count Result 151 k/mm3 (150-375); Red Blood Count 3.71 M/mm3 (4.6-6.20); White Blood Count 11.1 K/mm3 (4.5-10.0)
[2024-12-29 06:58] LABS: Lactic Acid Reflex 2.2 mmol/L (0.7-2.0)
[2024-12-29 07:04] LABS: Alanine Aminotransferase 22 U/L (6-50); Albumin Level 3.2 g/dL (3.5-5.1); Alkaline Phosphatase 64 U/L (38-126); Anion Gap 6 mmol/L (4-12); Aspartate Amino Transferase 26 U/L (17-59); Bilirubin,Total 0.5 mg/dL (0.2-1.3); Blood Urea Nitrogen 30 mg/dL (9-20); Calcium 8.3 mg/dL (8.4-10.2); Carbon Dioxide 28 mmol/L (22-30); Chloride 99 mmol/L (98-107); Estimated CRCL calculation 59 ml/min; Estimated Glomerular Filt Rate > 60; Glucose 140 mg/dL (65-110); Potassium 3.3 mmol/L (3.4-5.0); Sodium 133 mmol/L (137-145)
[2024-12-29 07:20] LABS: Glucose Point of Care 128 mg/dl (65-105)
[2024-12-29] MEDS: ENOXAPARIN 40 MG/0.4 ML SYRINGE SUB-Q (09:11)
[2024-12-29] MEDS: hydroCHLOROthiazide 25 MG TABLET PO (09:12)
[2024-12-29] MEDS: CEFEPIME 2 GM/NS 50 ML 2 GM/50 ML BAG IVPB (09:12)
[2024-12-29] MEDS: OSELTAMIVIR PHOSPHATE 30 MG CAPSULE PO ×2 (09:12→21:24)
[2024-12-29] MEDS: CYANOCOBALAMIN 1,000 MCG TABLET 2000 MCG PO (09:12)
[2024-12-29] MEDS: amLODIPine BESYLATE 5 MG TABLET PO (09:12)
[2024-12-29] MEDS: guaiFENesin 12 HR 600 MG TABCR PO ×2 (09:12→21:24)
[2024-12-29] MEDS: DOXYCYCLINE 100 MG/NS 100 ML 100 MG/100 ML BAG IVPB (09:13)
[2024-12-29 09:42] LABS: Reflex Lactic Acid Yes or No Add Lactic
[2024-12-29 10:24] LABS: Lactic Acid 2.9 mmol/L (0.7-2.0)
[2024-12-29 11:18] LABS: Glucose Point of Care 128 mg/dl (65-105)
[2024-12-29] MEDS: POTASSIUM CHLORIDE 20 MEQ ER TABLET 40 MEQ PO (13:22)
[2024-12-29 16:20] LABS: Glucose Point of Care 129 mg/dl (65-105)
--- NOTE | 2024-12-29 16:48 | P.PNIM_ITS ---
Progress Note: A&P Assessment and Plan (1) Acute hypoxic respiratory failure: Code(s): J96.01 - Acute respiratory failure with hypoxia Status: Acute Assessment and Plan: * Chest x-ray showing left basilar atelectasis versus pneumonia, underlying COPD * Wean O2 for sat greater than 92%, currently on 2 L nasal cannula * Positive for influenza A * Continue Tamiflu * Continue Cefepime and Doxycycline * Continue Duonebs 12/28 * no change to current treatment * Continue to wean O2 for a saturation greater than 92% 12/29 * currently on 1 L nasal cannula * continue incentive spirometry and pep therapy * continue to wean O2 for sat greater than 92% * continue Tamiflu and antibiotics (2) Pneumonia: Qualifiers: Pneumonia type: due to influenza A virus Qualified Code(s): J10.00 - Influenza due to other identified influenza virus with unspecified type of pneumonia Code(s): J18.9 - Pneumonia, unspecified organism Status: Acute Assessment and Plan: * CXR showing possible left basilar pneumonia * Respiratory panel positive for Influenza A * Continue Tamiflu * Continue Mucinex * Start Pep therapy and IS while awake * encourage out of bed * Continue Doxycycline and Cefepime * Wean O2 for saturation greater than 92% * Supportive care 12/28 * continue pep therapy and incentive spirometry * continue Tamiflu and Mucinex 12/29 * no change to current treatment plan (3) Influenza A: Code(s): J10.1 - Influenza due to other identified influenza virus with other respiratory manifestations Status: Acute Assessment and Plan: see above (4) COPD exacerbation: Code(s): J44.1 - Chronic obstructive pulmonary disease with (acute) exacerbation Status: Acute Assessment and Plan: * continue Duonebs * Continue solumedrol, start tapering 12/28 * decreased solumedrol to 40 mg BID * continue duo-nebs 12/29 * steroid discontinued * continue DuoNebs (5) T2DM (type 2 diabetes mellitus): Qualifiers: Diabetes mellitus truck terminal manager insulin use: without truck terminal manager use Diabetes mellitus complication status: without complication Qualified Code(s): E11.9 - Type 2 diabetes mellitus without complications Code(s): E11.9 - Type 2 diabetes mellitus without complications Status: Chronic Assessment and Plan: * Blood sugars ranging 192-222 * Hgb A1C 6.5 * Accu checks AC/HS * high dose SSI ordered * hypoglycemic protocol in place * Diabetic diet ordered (6) Essential hypertension: Code(s): I10 - Essential (primary) hypertension Status: Chronic Assessment and Plan: * Blood pressure ranging 113/58-131/63 * Continue amlodipine and hydrochlorothiazide 12/28 * No change Time Spent With Patient Time with patient: 15 - 25 minutes Subjective Date/time seen: 12/29/24 16:48 Interval history: Interval history: This is an 79-year-old male with a significant past medical history of COPD, hypothyroidism, type 2 diabetes mellitus, obesity, GERD, restless leg syndrome, asthma, hyperlipidemia, hypertension, chronic kidney disease, DAPHNE, former smoker who presented to the hospital on 12/26/2024 with shortness of breath/dyspnea and acute respiratory failure requiring O2 at 2 L. Workup in the hospital included a chest x-ray which showed left basilar atelectasis versus pneumonia, underlying COPD. Initial labs showed a white blood cell count of 8.1, hemoglobin 11.2, platelet count 149, sodium 130, chloride 97, EGFR 54, blood sugars 128-290, lactic acid 2.1> 2.4, procalcitonin 1.3, MRSA was not detected. Respiratory panel was positive for influenza A. Sputum and blood cultures were obtained and pending. EKG showed sinus tachycardia with right bundle branch block with a rate of 118, QTC 467. Patient was started on Rocephin, doxycycline, vancomycin, Solu-Medrol, 1 L of LR, and started on Tamiflu. Subjective: Patient denies any new complaints today. Labs reviewed. Review of Systems Review of Systems: All systems reviewed & are unremarkable except as noted in HPI and below Exam Narrative: General: In no acute distress, well nourished Cardiac: Normal S1 and S2. No murmur, gallops or friction rubs, peripheral pulses intact. Respiratory: Lungs clear to auscultation, no adventitious lung sounds, currently on 1L NC Gastrointestinal: soft, non-distended, non-tender, normoactive bowel sounds. : voiding without difficulty. Extremities: moves all extremities well, no edema Skin: clean, dry, intact. No wounds or lesions. Neuro: Alert and oriented x4 Objective Data Vital Signs Vital Signs: Vital Signs - 24 hr 12/28/24 20:45 12/28/24 21:15 02/07/25 21:26 Temperature 97.4 F L Pulse Rate 88 86 77 Respiratory Rate 16 20 12 Blood Pressure 139/82 Pulse Oximetry 97 94 Oxygen Delivery Nasal Cannula Oxygen Flow Rate 2 12/28/24 21:28 12/28/24 22:00 12/29/24 01:06 Temperature Pulse Rate 77 105 H Respiratory Rate 12 Blood Pressure Pulse Oximetry 94 95 Oxygen Delivery Nasal Cannula CPAP Oxygen Flow Rate 2 12/29/24 03:30 12/29/24 05:20 12/29/24 08:00 Temperature 97.6 F Pulse Rate 73 95 Respiratory Rate 16 18 Blood Pressure 129/62 Pulse Oximetry 96 100 Oxygen Delivery Nasal Cannula Oxygen Flow Rate 2 12/29/24 09:03 12/29/24 09:03 12/29/24 09:14 Temperature Pulse Rate 72 77 Respiratory Rate 20 20 Blood Pressure Pulse Oximetry 100 Oxygen Delivery Nasal Cannula Oxygen Flow Rate 2 12/29/24 14:00 12/29/24 14:50 12/29/24 15:01 Temperature 97.6 F Pulse Rate 83 82 79 Respiratory Rate 16 20 20 Blood Pressure 130/65 Pulse Oximetry 100 Oxygen Delivery Oxygen Flow Rate Intake/Output Intake/Output: Intake & Output 12/26/24 12/27/24 12/28/24 12/29/24 23:59 23:59 23:59 23:59 Intake Total 2086 2216 1830 540 Output Total 400 1000 1200 Balance 1686 1216 630 540 Meds/Results Medications: Active Medications Generic Name Dose Route Start Last Admin Trade Name Freq PRN Reason Stop Dose Admin Acetaminophen 650 mg 12/26/24 09:21 12/26/24 21:37 Acetaminophen 325 Mg Tablet PO 650 mg Q4H PRN Administration Mild Pain (1-3) or Fever Albuterol/Ipratropium 3 ml 12/26/24 09:30 12/29/24 14:49 Ipratropium 0.5 Mg/Albuterol Sulfate 2.5 Mg Ampul.Neb 3 Ml INHALATION 3 ml Q6HRT BENJAMIN Administration Amlodipine Besylate 5 mg 12/27/24 09:00 12/29/24 09:12 Amlodipine Besylate 5 Mg Tablet PO 5 mg DAILY BENJAMIN Administration Benzocaine 1 lozenge 12/26/24 12:36 Benzocaine/Menthol (*Bkc) 18 Ea Lozenge PO PRN PRN Sore Throat Cyanocobalamin 2,000 mcg 12/28/24 10:34 12/29/24 09:12 Cyanocobalamin 1,000 Mcg Tablet PO 2,000 mcg DAILY BENJAMIN Administration Dextrose 12.5 gm 12/26/24 12:44 Dextrose 50% 25 Gm/50 Ml Syringe IV PUSH PRN PRN Hypoglycemia Protocol Diphenhydramine HCl 25 mg 12/26/24 12:54 Diphenhydramine Hcl Inj 50 Mg/Ml Vial IV PUSH Q4H PRN Allergic Reaction Enoxaparin Sodium 40 mg 12/27/24 09:00 12/29/24 09:11 Enoxaparin 40 Mg/0.4 Ml Syringe SUB-Q 40 mg DAILY BENJAMIN Administration Glucagon 1 mg 12/26/24 12:44 Glucagon For Inj 1 Mg Vial IM PRN PRN Hypoglycemia Protocol Glucose 15 gm 12/26/24 12:44 Glucose Oral Gel 15 Gm Of Glucse In 37.5 Gm Tube PO PRN PRN Hypoglycemia Protocol Guaifenesin 600 mg 12/26/24 21:00 12/29/24 09:12 Guaifenesin 12 Hr 600 Mg Tabcr PO 600 mg Q12HR BENJAMIN Administration Hydrochlorothiazide 25 mg 12/26/24 12:45 12/29/24 09:12 Hydrochlorothiazide 25 Mg Tablet PO 25 mg DAILY BENJAMIN Administration Doxycycline Hyclate 100 mg in 100 mls @ 100 mls/hr 12/26/24 21:00 12/29/24 09:13 Vibramycin 100 Mg/Ns 100 Ml IVPB 100 mls/hr Q12H BENJAMIN Administration Dextrose 1,000 mls @ 100 mls/hr 12/26/24 12:44 Dextrose 5% 1,000 Ml IVPB PRN PRN Hypoglycemia Protocol Cefepime HCl 2 gm in 50 mls @ 100 mls/hr 12/26/24 12:50 12/29/24 09:12 Maxipime 2 Gm/Ns 50 Ml IVPB 100 mls/hr Q12HR BENJAMIN Administration Insulin Aspart 4 - 8 units 12/26/24 17:00 12/29/24 12:32 Insulin Aspart (*Bkc) 100 Units/Ml SUB-Q Not Given TIDWM [facility]IN Protocol Levothyroxine Sodium 50 mcg 12/27/24 06:30 12/29/24 06:14 Levothyroxine Sodium 50 Mcg Tablet PO 50 mcg DAILY@0630 B[facility]JAMIN Administration Lovastatin 20 mg 12/26/24 18:00 12/28/24 17:15 Lovastatin 20 Mg Tablet PO 20 mg EVENING B[facility]JAMIN Administration Oseltamivir Phosphate 30 mg 12/26/24 21:00 12/29/24 09:12 Oseltamivir Phosphate 30 Mg Capsule PO 12/30/24 21:01 30 mg Q12HR BENJAMIN Administration Ropinirole HCl 0.5 mg 12/28/24 21:00 12/28/24 22:03 Ropinirole Hcl 0.5 Mg Tablet PO 0.5 mg HS BENJAMIN Administration Vitamin D 2,000 units 12/29/24 21:00 Cholecalciferol 1,000 Units Tablet PO HS [facility] Radiology Results: ITS Impressions Chest X-Ray 12/26/24 06:24 Impression: Left basilar atelectasis versus pneumonia. Correlate clinically. Underlying COPD. Labs Labs: Laboratory Results - last 24 hr 12/28/24 12/29/24 12/29/24 20:00 06:27 07:17 WBC 11.1 H RBC 3.71 L Hgb 10.5 L Hct 32.4 L MCV 87.3 MCH 28.3 MCHC 32.4 RDW 14.0 Plt Count 151 MPV 9.2 Immature Gran % (Auto) 1.0 H Neut % (Auto) 85.9 H Lymph % (Auto) 7.0 L Hind[place] % (Auto) 6.0 Eos % (Auto) 0.0 Baso % (Auto) 0.1 L Lymph # (Auto) 0.77 L [place] # (Auto) 0.7 H Eos # (Auto) 0.0 Baso # (Auto) 0.0 Abs Immat Gran (auto) 0.11 H Absolute Neuts (auto) 9.5 H Absolute Nucleated RBC 0.000 Nucleated RBC % 0.0 Sodium 133 L Potassium 3.3 L Chloride 99 Carbon Dioxide 28 Anion Gap 6 BUN 30 H Creatinine 0.90 Estim Creat Clear Calc 59 Estimated GFR > 60 Glucose 140 H POC Capillary Glucose 196 H 128 H Lactic Acid 2.2 H Calcium 8.3 L Total Bilirubin 0.5 AST 26 ALT 22 Alkaline Phosphatase 64 Total Protein 6.0 L Albumin 3.2 L 12/29/24 12/29/24 12/29/24 09:58 11:14 16:15 WBC RBC Hgb Hct MCV MCH MCHC RDW Plt Count MPV Immature Gran % (Auto) Neut % (Auto) Lymph % (Auto) [place] % (Auto) Eos % (Auto) Baso % (Auto) Lymph # (Auto) [place] # (Auto) Eos # (Auto) Baso # (Auto) Abs Immat Gran (auto) Absolute Neuts (auto) Absolute Nucleated RBC Nucleated RBC % Sodium Potassium Chloride Carbon Dioxide Anion Gap BUN Creatinine Estim Creat Clear Calc Estimated GFR Glucose POC Capillary Glucose 128 H 129 H Lactic Acid 2.9 H Calcium Total Bilirubin AST ALT Alkaline Phosphatase Total Protein Albumin Quality VTE Prophylaxis VTE prophylaxis: pharmacologic ordered
[2024-12-29 20:37] LABS: Glucose Point of Care 157 mg/dl (65-105)
[2024-12-29] MEDS: CHOLECALCIFEROL 1,000 UNITS TABLET 2000 UNITS PO (21:24)
[2024-12-29] MEDS: rOPINIRole HCL 0.5 MG TABLET PO (21:24)
[2024-12-30] VITALS (8 sets, daily range): BP systolic 125; BP diastolic 74; PULSE 84–98; RESP 16–20; TEMP 36.8; O2SAT 93–100
[2024-12-30] MEDS: IPRATROPIUM 0.5 MG/ALBUTEROL SULFATE 2.5 MG AMPUL.NEB 3 ML INHALATION ×2 (01:46→07:42)
[2024-12-30] MEDS: LEVOTHYROXINE SODIUM 50 MCG TABLET PO (05:38)
[2024-12-30 06:30] LABS: Basophils Percent Auto 0.2 % (0.2-1.2); Eosinophils Absolute Auto 0.1 K/mm3 (0-0.3); Hematocrit 33.4 % (42.0-52.0); Hemoglobin 10.7 g/dL (14.0-18.0); Immature Granulocyte Absolute 0.09 K/mm3 (0.00-0.031); Immature Granulocyte Percent A 1.4 % (0-0.5); Lymphocytes Absolute Auto 1.23 K/mm3 (0.9-3.2); Lymphocytes Percent Auto 18.6 % (18.3-44.2); Mean Corpuscular Hemoglobin 28.1 pg (26-34); Mean Corpuscular Volume 87.7 fl (80-100); Mean Platelet Volume 9.2 fl (7.4-10.4); Monocytes Absolute Auto 0.7 K/mm3 (0.1-0.6); Neutrophils Absolute Auto 4.5 K/mm3 (1.3-6.7); Neutrophils Percent Auto 67.8 % (45.5-73.1); Platelet Count Result 153 k/mm3 (150-375); Red Blood Count 3.81 M/mm3 (4.6-6.20); White Blood Count 6.6 K/mm3 (4.5-10.0)
[2024-12-30 06:37] LABS: Alanine Aminotransferase 19 U/L (6-50); Albumin Level 3.2 g/dL (3.5-5.1); Alkaline Phosphatase 58 U/L (38-126); Anion Gap 8 mmol/L (4-12); Aspartate Amino Transferase 23 U/L (17-59); Bilirubin,Total 0.7 mg/dL (0.2-1.3); Blood Urea Nitrogen 29 mg/dL (9-20); Calcium 8.2 mg/dL (8.4-10.2); Carbon Dioxide 31 mmol/L (22-30); Chloride 97 mmol/L (98-107); Estimated CRCL calculation 55 ml/min; Estimated Glomerular Filt Rate > 60; Glucose 83 mg/dL (65-110); Potassium 3.2 mmol/L (3.4-5.0); Sodium 136 mmol/L (137-145)
[2024-12-30 07:56] LABS: Glucose Point of Care 91 mg/dl (65-105)
[2024-12-30] MEDS: OSELTAMIVIR PHOSPHATE 30 MG CAPSULE PO (08:58)
[2024-12-30] MEDS: hydroCHLOROthiazide 25 MG TABLET PO (08:58)
[2024-12-30] MEDS: CYANOCOBALAMIN 1,000 MCG TABLET 2000 MCG PO (08:58)
[2024-12-30] MEDS: amLODIPine BESYLATE 5 MG TABLET PO (08:59)
[2024-12-30] MEDS: guaiFENesin 12 HR 600 MG TABCR PO (08:59)
[2024-12-30] MEDS: ENOXAPARIN 40 MG/0.4 ML SYRINGE SUB-Q (09:05)
--- NOTE | 2024-12-30 11:00 | P.PNIM_ITS ---
Progress Note: A&P Assessment and Plan (1) Acute hypoxic respiratory failure: Code(s): J96.01 - Acute respiratory failure with hypoxia Status: Acute Assessment and Plan: * Chest x-ray showing left basilar atelectasis versus pneumonia, underlying COPD * Wean O2 for sat greater than 92%, currently on 2 L nasal cannula * Positive for influenza A * Continue Tamiflu * Continue Cefepime and Doxycycline * Continue Duonebs 12/28 * no change to current treatment * Continue to wean O2 for a saturation greater than 92% 12/29 * currently on 1 L nasal cannula * continue incentive spirometry and pep therapy * continue to wean O2 for sat greater than 92% * continue Tamiflu and antibiotics (2) Pneumonia: Qualifiers: Pneumonia type: due to influenza A virus Qualified Code(s): J10.00 - Influenza due to other identified influenza virus with unspecified type of pneumonia Code(s): J18.9 - Pneumonia, unspecified organism Status: Acute Assessment and Plan: * CXR showing possible left basilar pneumonia * Respiratory panel positive for Influenza A * Continue Tamiflu * Continue Mucinex * Start Pep therapy and IS while awake * encourage out of bed * Continue Doxycycline and Cefepime * Wean O2 for saturation greater than 92% * Supportive care 12/28 * continue pep therapy and incentive spirometry * continue Tamiflu and Mucinex 12/29 * no change to current treatment plan (3) Influenza A: Code(s): J10.1 - Influenza due to other identified influenza virus with other respiratory manifestations Status: Acute Assessment and Plan: see above (4) COPD exacerbation: Code(s): J44.1 - Chronic obstructive pulmonary disease with (acute) exacerbation Status: Acute Assessment and Plan: * continue Duonebs * Continue solumedrol, start tapering 12/28 * decreased solumedrol to 40 mg BID * continue duo-nebs 12/29 * steroid discontinued * continue DuoNebs (5) T2DM (type 2 diabetes mellitus): Qualifiers: Diabetes mellitus terminal superintendent insulin use: without terminal superintendent use Diabetes mellitus complication status: without complication Qualified Code(s): E11.9 - Type 2 diabetes mellitus without complications Code(s): E11.9 - Type 2 diabetes mellitus without complications Status: Chronic Assessment and Plan: * Blood sugars ranging 192-222 * Hgb A1C 6.5 * Accu checks AC/HS * high dose SSI ordered * hypoglycemic protocol in place * Diabetic diet ordered (6) Essential hypertension: Code(s): I10 - Essential (primary) hypertension Status: Chronic Assessment and Plan: * Blood pressure ranging 113/58-131/63 * Continue amlodipine and hydrochlorothiazide 12/28 * No change Subjective Date/time seen: 12/30/24 11:00 Interval history: Interval history: This is an 79-year-old male with a significant past medical history of COPD, hypothyroidism, type 2 diabetes mellitus, obesity, GERD, restless leg syndrome, asthma, hyperlipidemia, hypertension, chronic kidney disease, DAPHNE, former smoker who presented to the hospital on 12/26/2024 with shortness of breath/dyspnea and acute respiratory failure requiring O2 at 2 L. Workup in the hospital included a chest x-ray which showed left basilar atelectasis versus pneumonia, underlying COPD. Initial labs showed a white blood cell count of 8.1, hemoglobin 11.2, platelet count 149, sodium 130, chloride 97, EGFR 54, blood sugars 128-290, lactic acid 2.1> 2.4, procalcitonin 1.3, MRSA was not detected. Respiratory panel was positive for influenza A. Sputum and blood cultures were obtained and pending. EKG showed sinus tachycardia with right bundle branch block with a rate of 118, QTC 467. Patient was started on Rocephin, doxycycline, vancomycin, Solu-Medrol, 1 L of LR, and started on Tamiflu. Subjective: Patient denies any new complaints today. Labs reviewed. Review of Systems Review of Systems: All systems reviewed & are unremarkable except as noted in HPI and below Exam Narrative: General: In no acute distress, well nourished Cardiac: Normal S1 and S2. No murmur, gallops or friction rubs, peripheral pulses intact. Respiratory: Lungs clear to auscultation, no adventitious lung sounds, currently on 1L NC Gastrointestinal: soft, non-distended, non-tender, normoactive bowel sounds. : voiding without difficulty. Extremities: moves all extremities well, no edema Skin: clean, dry, intact. No wounds or lesions. Neuro: Alert and oriented x4 Objective Data Vital Signs Vital Signs: Vital Signs - 24 hr 12/29/24 14:00 12/29/24 14:50 12/29/24 15:01 Temperature 97.6 F Pulse Rate 83 82 79 Respiratory Rate 16 20 20 Blood Pressure 130/65 Pulse Oximetry 100 Oxygen Delivery Oxygen Flow Rate 12/29/24 20:53 12/29/24 20:55 12/29/24 21:02 Temperature Pulse Rate 83 82 Respiratory Rate 20 20 Blood Pressure Pulse Oximetry 98 Oxygen Delivery Nasal Cannula Oxygen Flow Rate 1.5 12/29/24 21:15 12/29/24 21:34 12/29/24 23:00 Temperature 98.3 F Pulse Rate 88 88 Respiratory Rate 18 Blood Pressure 131/73 Pulse Oximetry 99 99 99 Oxygen Delivery Nasal Cannula CPAP Oxygen Flow Rate 1 12/30/24 01:47 12/30/24 01:53 12/30/24 06:00 Temperature 98.3 F Pulse Rate 88 88 89 Respiratory Rate 19 19 16 Blood Pressure 125/74 Pulse Oximetry 98 Oxygen Delivery Oxygen Flow Rate 12/30/24 06:25 12/30/24 06:25 12/30/24 07:44 Temperature Pulse Rate Respiratory Rate Blood Pressure Pulse Oximetry 93 93 95 Oxygen Delivery Room Air Room Air Oxygen Flow Rate 12/30/24 07:44 12/30/24 07:54 12/30/24 09:00 Temperature Pulse Rate 87 84 Respiratory Rate 20 20 Blood Pressure Pulse Oximetry 100 Oxygen Delivery Room Air Oxygen Flow Rate 12/30/24 09:12 Temperature Pulse Rate 98 Respiratory Rate Blood Pressure Pulse Oximetry 100 Oxygen Delivery Oxygen Flow Rate Intake/Output Intake/Output: Intake & Output 12/27/24 12/28/24 12/29/24 12/30/24 23:59 23:59 23:59 23:59 Intake Total 2216 1830 2430 340 Output Total 1000 1200 4 Balance 1660 397 2978 340 Meds/Results Medications: Active Medications Generic Name Dose Route Start Last Admin Trade Name Freq PRN Reason Stop Dose Admin Acetaminophen 650 mg 12/26/24 09:21 12/26/24 21:37 Acetaminophen 325 Mg Tablet PO 650 mg Q4H PRN Administration Mild Pain (1-3) or Fever Albuterol/Ipratropium 3 ml 12/26/24 09:30 12/30/24 07:42 Ipratropium 0.5 Mg/Albuterol Sulfate 2.5 Mg Ampul.Neb 3 Ml INHALATION 3 ml Q6HRT BENJAMIN Administration Amlodipine Besylate 5 mg 12/27/24 09:00 12/30/24 08:59 Amlodipine Besylate 5 Mg Tablet PO 5 mg DAILY BENJAMIN Administration Benzocaine 1 lozenge 12/26/24 12:36 Benzocaine/Menthol (*Bkc) 18 Ea Lozenge PO PRN PRN Sore Throat Cyanocobalamin 2,000 mcg 12/28/24 10:34 12/30/24 08:58 Cyanocobalamin 1,000 Mcg Tablet PO 2,000 mcg DAILY BENJAMIN Administration Dextrose 12.5 gm 12/26/24 12:44 Dextrose 50% 25 Gm/50 Ml Syringe IV PUSH PRN PRN Hypoglycemia Protocol Diphenhydramine HCl 25 mg 12/26/24 12:54 Diphenhydramine Hcl Inj 50 Mg/Ml Vial IV PUSH Q4H PRN Allergic Reaction Enoxaparin Sodium 40 mg 12/27/24 09:00 12/30/24 09:05 Enoxaparin 40 Mg/0.4 Ml Syringe SUB-Q 40 mg DAILY BENJAMIN Administration Glucagon 1 mg 12/26/24 12:44 Glucagon For Inj 1 Mg Vial IM PRN PRN Hypoglycemia Protocol Glucose 15 gm 12/26/24 12:44 Glucose Oral Gel 15 Gm Of Glucse In 37.5 Gm Tube PO PRN PRN Hypoglycemia Protocol Guaifenesin 600 mg 12/26/24 21:00 12/30/24 08:59 Guaifenesin 12 Hr 600 Mg Tabcr PO 600 mg Q12HR BENJAMIN Administration Hydrochlorothiazide 25 mg 12/26/24 12:45 12/30/24 08:58 Hydrochlorothiazide 25 Mg Tablet PO 25 mg DAILY BENJAMIN Administration Doxycycline Hyclate 100 mg in 100 mls @ 100 mls/hr 12/26/24 21:00 12/30/24 09:01 Vibramycin 100 Mg/Ns 100 Ml IVPB Not Given Q12H BENJAMIN Dextrose 1,000 mls @ 100 mls/hr 12/26/24 12:44 Dextrose 5% 1,000 Ml IVPB PRN PRN Hypoglycemia Protocol Cefepime HCl 2 gm in 50 mls @ 100 mls/hr 12/26/24 12:50 12/30/24 09:00 Maxipime 2 Gm/Ns 50 Ml IVPB Not Given Q12HR BENJAMIN Insulin Aspart 4 - 8 units 12/26/24 17:00 12/30/24 07:57 Insulin Aspart (*Bkc) 100 Units/Ml SUB-Q Not Given TIDWM [facility] Protocol Levothyroxine Sodium 50 mcg 12/27/24 06:30 12/30/24 05:38 Levothyroxine Sodium 50 Mcg Tablet PO 50 mcg DAILY@0630 BENJAMIN Administration Lovastatin 20 mg 12/26/24 18:00 12/30/24 07:29 Lovastatin 20 Mg Tablet PO Not Given EVENING BENJAMIN Oseltamivir Phosphate 30 mg 12/26/24 21:00 12/30/24 08:58 Oseltamivir Phosphate 30 Mg Capsule PO 12/30/24 21:01 30 mg Q12HR BENJAMIN Administration Ropinirole HCl 0.5 mg 12/28/24 21:00 12/29/24 21:24 Ropinirole Hcl 0.5 Mg Tablet PO 0.5 mg HS BENJAMIN Administration Vitamin D 2,000 units 12/29/24 21:00 12/29/24 21:24 Cholecalciferol 1,000 Units Tablet PO 2,000 units HS BENJAMIN Administration Radiology Results: ITS Impressions Chest X-Ray 12/26/24 06:24 Impression: Left basilar atelectasis versus pneumonia. Correlate clinically. Underlying COPD. Labs Labs: Laboratory Results - last 24 hr 12/29/24 12/29/24 12/29/24 11:14 16:15 19:44 WBC RBC Hgb Hct MCV MCH MCHC RDW Plt Count MPV Immature Gran % (Auto) Neut % (Auto) Lymph % (Auto) Mineral % (Auto) Eos % (Auto) Baso % (Auto) Lymph # (Auto) Mineral # (Auto) Eos # (Auto) Baso # (Auto) Abs Immat Gran (auto) Absolute Neuts (auto) Absolute Nucleated RBC Nucleated RBC % Sodium Potassium Chloride Carbon Dioxide Anion Gap BUN Creatinine Estim Creat Clear Calc Estimated GFR Glucose POC Capillary Glucose 128 H 129 H 157 H Calcium Total Bilirubin AST ALT Alkaline Phosphatase Total Protein Albumin 12/30/24 12/30/24 06:01 07:51 WBC 6.6 RBC 3.81 L Hgb 10.7 L Hct 33.4 L MCV 87.7 MCH 28.1 MCHC 32.0 RDW 14.0 Plt Count 153 MPV 9.2 Immature Gran % (Auto) 1.4 H Neut % (Auto) 67.8 Lymph % (Auto) 18.6 Mineral % (Auto) 10.0 H Eos % (Auto) 2.0 Baso % (Auto) 0.2 Lymph # (Auto) 1.23 Mineral # (Auto) 0.7 H Eos # (Auto) 0.1 Baso # (Auto) 0.0 Abs Immat Gran (auto) 0.09 H Absolute Neuts (auto) 4.5 Absolute Nucleated RBC 0.000 Nucleated RBC % 0.0 Sodium 136 L Potassium 3.2 L Chloride 97 L Carbon Dioxide 31 H Anion Gap 8 BUN 29 H Creatinine 0.96 Estim Creat Clear Calc 55 Estimated GFR > 60 Glucose 83 POC Capillary Glucose 91 Calcium 8.2 L Total Bilirubin 0.7 AST 23 ALT 19 Alkaline Phosphatase 58 Total Protein 6.0 L Albumin 3.2 L Quality VTE Prophylaxis VTE prophylaxis: pharmacologic ordered
[2024-12-30 11:18] LABS: Glucose Point of Care 127 mg/dl (65-105)
[2024-12-30] MEDS: levoFLOXacin 750 MG TABLET PO (12:50)
[2024-12-30] MEDS: POTASSIUM CHLORIDE 20 MEQ ER TABLET 40 MEQ PO (12:50)
--- NOTE | 2024-12-30 13:42 | P.DS_ITS ---
DS: Admitting Diagnosis Discharge Date 12/30/24 Admitting Diagnosis Acute hypoxic respiratory failure Pneumonia Influenza a COPD exacerbation Type 2 diabetes mellitus Hypertension DS: Discharge Diagnosis Discharge Diagnosis (1) Acute hypoxic respiratory failure: Code(s): J96.01 - Acute respiratory failure with hypoxia Status: Acute (2) Pneumonia: Qualifiers: Pneumonia type: due to influenza A virus Qualified Code(s): J10.00 - Influenza due to other identified influenza virus with unspecified type of pneumonia Code(s): J18.9 - Pneumonia, unspecified organism Status: Acute (3) Influenza A: Code(s): J10.1 - Influenza due to other identified influenza virus with other respiratory manifestations Status: Acute (4) COPD exacerbation: Code(s): J44.1 - Chronic obstructive pulmonary disease with (acute) exacerbation Status: Acute (5) T2DM (type 2 diabetes mellitus): 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-term use Diabetes mellitus complication status: without complication Qualified Code(s): E11.9 - Type 2 diabetes mellitus without complications Code(s): E11.9 - Type 2 diabetes mellitus without complications Status: Chronic (6) Essential hypertension: Code(s): I10 - Essential (primary) hypertension Status: Chronic DS: Summary Hospital Course Reason for hospitalization: Acute hypoxic respiratory failure Pneumonia Influenza a COPD exacerbation Type 2 diabetes mellitus Hypertension Hospital Course: This is an 79-year-old male with a significant past medical history of COPD, hypothyroidism, type 2 diabetes mellitus, obesity, GERD, restless leg syndrome, asthma, hyperlipidemia, hypertension, chronic kidney disease, DAPHNE, former smoker who presented to the hospital on 12/26/2024 with shortness of breath/dyspnea and acute respiratory failure requiring O2 at 2 L. Workup in the hospital included a chest x-ray which showed left basilar atelectasis versus pneumonia, underlying COPD. Initial labs showed a white blood cell count of 8.1, hemoglobin 11.2, platelet count 149, sodium 130, chloride 97, EGFR 54, blood sugars 128-290, lactic acid 2.1> 2.4, procalcitonin 1.3, MRSA was not detected. Respiratory panel was positive for influenza A. Sputum and blood cultures were obtained and pending. EKG showed sinus tachycardia with right bundle branch block with a rate of 118, QTC 467. Patient was started on Rocephin, doxycycline, vancomycin, Solu-Medrol, 1 L of LR, and started on Tamiflu. Sputum culture showing Streptococcus pneumoniae on preliminary read, blood cultures showing no growth to date on preliminary read patient was transition to oral Levaquin. He will need to finish a full course of Levaquin and finish his Tamiflu and then follow up with his primary care doctor in 1 week. Final diagnosis: Acute hypoxic respiratory failure, community-acquired pneumonia, influenza A Status at Discharge Cognitive/behavioral status at discharge: Alert oriented x3 Functional status at discharge: independent ambulation Overall status at discharge: patient is progressing back to baseline Time Spent with Patient Time attestation: Total time spent providing and/or coordinating discharge services: Time spent: Greater than 30 minutes Exam Narrative: General: In no acute distress, well nourished Cardiac: Normal S1 and S2. No murmur, gallops or friction rubs, peripheral pulses intact. Respiratory: Lungs clear to auscultation, no adventitious lung sounds, currently on room air Gastrointestinal: soft, non-distended, non-tender, normoactive bowel sounds. : voiding without difficulty. Extremities: moves all extremities well, no edema Skin: clean, dry, intact. No wounds or lesions. Neuro: Alert and oriented x4 DS: Data Data Completed and Pending Completed studies during hospitalization: Chest x-ray Pending studies at discharge: Blood and sputum cultures pending Labs on day of discharge: Labs from last 24 hours 12/30/24 12/30/24 12/30/24 11:12 07:51 06:01 WBC 6.6 RBC 3.81 L Hgb 10.7 L Hct 33.4 L MCV 87.7 MCH 28.1 MCHC 32.0 RDW 14.0 Plt Count 153 MPV 9.2 Immature Gran % (Auto) 1.4 H Neut % (Auto) 67.8 Lymph % (Auto) 18.6 [place] % (Auto) 10.0 H Eos % (Auto) 2.0 Baso % (Auto) 0.2 Lymph # (Auto) 1.23 [place] # (Auto) 0.7 H Eos # (Auto) 0.1 Baso # (Auto) 0.0 Abs Immat Gran (auto) 0.09 H Absolute Neuts (auto) 4.5 Absolute Nucleated RBC 0.000 Nucleated RBC % 0.0 Sodium 136 L Potassium 3.2 L Chloride 97 L Carbon Dioxide 31 H Anion Gap 8 BUN 29 H Creatinine 0.96 Estim Creat Clear Calc 55 Estimated GFR > 60 Glucose 83 POC Capillary Glucose 127 H 91 Calcium 8.2 L Total Bilirubin 0.7 AST 23 ALT 19 Alkaline Phosphatase 58 Total Protein 6.0 L Albumin 3.2 L 12/29/24 12/29/24 19:44 16:15 WBC RBC Hgb Hct MCV MCH MCHC RDW Plt Count MPV Immature Gran % (Auto) Neut % (Auto) Lymph % (Auto) [place] % (Auto) Eos % (Auto) Baso % (Auto) Lymph # (Auto) [place] # (Auto) Eos # (Auto) Baso # (Auto) Abs Immat Gran (auto) Absolute Neuts (auto) Absolute Nucleated RBC Nucleated RBC % Sodium Potassium Chloride Carbon Dioxide Anion Gap BUN Creatinine Estim Creat Clear Calc Estimated GFR Glucose POC Capillary Glucose 157 H 129 H Calcium Total Bilirubin AST ALT Alkaline Phosphatase Total Protein Albumin Preliminary micro results at discharge 12/26/24 14:14 Sputum Culture - Preliminary Sputum Streptococcus pneumoniae 12/26/24 05:50 Blood Culture - Preliminary Blood 12/26/24 05:50 Blood Culture - Preliminary Blood Procedures/Treatments: None Discharge Plan Discharge Attending physician on discharge: Dat Stout Discharging Clinician: Ping Cooper Anticipated Discharge Date/Time: 12/30/24 13:35 Patient Disposition: Home, Self-Care Activity: as tolerated Diet: as tolerated and heart healthy Discharge Instructions: * Finish all of your antibiotic and tamiflu as directed even if you are feeling better * You can continue to use Mucinex at home to help move secretions * Continue your respiratory exercises with Cornet valve and incentive spirometer * You can use your albuterol rescue inhaler or nebulized breathing treatments as needed for shortness of breath/wheezing * Follow up with primary care doctor in 1 week. Patient Instructions: Antibiotic Form, Levofloxacin (By mouth), Oseltamivir (By mouth), Bacterial Pneumonia (DC) Patient Language: [place] Stand Alone Forms: General Discharge Information Follow-up/Referrals: Saroj Lujan APRN [Primary Care Provider] - 1 Week Discharge Medications: New oseltamivir [Tamiflu] 30 mg Capsule 30 mg PO Q12HR Qty: 2 0RF guaifenesin [Mucus Relief ER] 600 mg Tablet Extended Release 12hr 600 mg PO Q12HR Qty: 20 0RF levofloxacin 750 mg tablet 750 mg PO DAILY Qty: 5 0RF Continued amlodipine 5 mg tablet 5 mg PO DAILY cyanocobalamin (vitamin B-12) 1,000 mcg tablet 2,000 mcg PO DAILY fluticasone propion-salmeterol [Wixela Inhub] 250-50 mcg/dose blister with device 1 inh inhalation DAILY ropinirole 0.5 mg tablet 0.5 mg PO DAILY epinephrine [EpiPen 2-Gareth] 0.3 mg/0.3 mL auto-injector 0.3 mg IM ONCE Rx Instructions: as a single dose cholecalciferol (vitamin D3) 25 mcg (1,000 unit) capsule 2,000 unit PO DAILY albuterol sulfate [Proventil HFA] 90 mcg/actuation HFA aerosol inhaler 2 puff INHALATION Q4H PRN (Reason: Shortness Of Breath) metformin 500 mg tablet See Rx Instructions .ROUTE .COMPLEX Qty: 180 1RF Dose Instruction: TAKE 1 TABLET BY MOUTH TWICE A DAY WITH MORNING AND EVENING MEALS Rx Instructions: TAKE 1 TABLET BY MOUTH TWICE A DAY WITH MORNING AND EVENING MEALS lovastatin 20 mg tablet See Rx Instructions .ROUTE .COMPLEX Qty: 90 2RF Dose Instruction: TAKE 1 TABLET BY MOUTH EVERY DAY IN THE EVENING Rx Instructions: TAKE 1 TABLET BY MOUTH EVERY DAY IN THE EVENING albuterol sulfate 2.5 mg /3 mL (0.083 %) solution for nebulization See Rx Instructions .ROUTE .COMPLEX Qty: 75 2RF Dose Instruction: INHALE 2.5 MG (3 ML) VIA NEBULIZER EVERY 6 HOURS NEEDED FOR SHORTNESS OF BREATH OR WHEEZING Rx Instructions: INHALE 2.5 MG (3 ML) VIA NEBULIZER EVERY 6 HOURS NEEDED FOR SHORTNESS OF BREATH OR WHEEZING hydrochlorothiazide 25 mg tablet See Rx Instructions .ROUTE .COMPLEX Qty: 90 1RF Dose Instruction: TAKE 1 TABLET BY MOUTH EVERY DAY Rx Instructions: TAKE 1 TABLET BY MOUTH EVERY DAY levothyroxine 50 mcg tablet See Rx Instructions .ROUTE .COMPLEX Qty: 90 1RF Dose Instruction: TAKE 1 TABLET BY MOUTH EVERY DAY Rx Instructions: TAKE 1 TABLET BY MOUTH EVERY DAY Date of admission: 12/26/24 10:47 Primary Care Provider: Saroj Lujan Admitting Provider: Jay Maurer Attending physician on admission: Allison,Ping M. Condition: Improved Quality VTE Prophylaxis VTE prophylaxis: pharmacologic ordered
--- NOTE | 2024-12-31 06:42 | WPDCDIQUERY2 ---
CDI Query Clarification Request Progress note states Sepsis: - meets SIRS criteria: HR, RR. No current hypotension. New supplemental O2 requirement. - lactic acid: 2.1 - lactic elevated, procalcitonin added - 30 mL/kg = 2.6 L. 1L bolus in the ED, additional 1L of LR ordered. Monitor toleration. - suspected source: Pneumonia - started on doxycycline, vancomycin, cefepime on 12/26 - blood cultures drawn on 12/26, follow - monitor O2 saturation and hemodynamic stability Discharge summary does not mention sepsis. Please clarify if sepsis was ruled in or ruled out on admission. <Linda Black RN - Last Filed: 12/31/24 06:44> Clarified Diagnosis Clarified Diagnosis: Sepsis was ruled in <Ping Cooper APRN - Last Filed: 12/31/24 20:53>
== END 2024-12-30 14:50 | disposition home or self-care (01) | DRG 194 ==
LOC: ANHED 09:32 → ANH2MED 10:14 → ANH3MEDSUR 12:14
PROVIDERS: General Practice; Student in an Organized Health Care Education/Training Program; Admitting Provider Internal Medicine; Emergency Provider Emergency Medicine; PCP Nurse Practitioner; Visit Provider Nurse Practitioner Acute Care
DX: J10.00 Influenza due to other identified influenza virus with unspecified type of pneumonia (principal); J44.0 Chronic obstructive pulmonary disease with (acute) lower respiratory infection; J44.1 Chronic obstructive pulmonary disease with (acute) exacerbation; B95.3 Streptococcus pneumoniae as the cause of diseases classified elsewhere; I12.9 Hypertensive chronic kidney disease with stage 1 through stage 4 chronic kidney disease, or unspecified chronic kidney disease; E11.22 Type 2 diabetes mellitus with diabetic chronic kidney disease; N18.9 Chronic kidney disease, unspecified; G25.81 Restless legs syndrome; G47.33 Obstructive sleep apnea (adult) (pediatric); E78.5 Hyperlipidemia, unspecified; Z87.891 Personal history of nicotine dependence
CPT/HCPCS: 36415; 71046; 80053; 82565; 82948; 83605; 84145; 85025; 85027; 87040; 87070; 87181; 87205; 87637; 87641; 93005; 94640; 94667; 96361; 96365; 96368; 96375; 99285; A9270; G0378; J0692; J0696; J1650; J1815; J2919; J3370; J7030; J7120

== ENCOUNTER 2025-02-08 16:07 | Emergency (ER) | payer OTHER, SELFPAY ==
--- NOTE | ~2025-02-08 | US_ITS ---
EXAMINATION: US venous doppler LE RT DATE: 02/08/2025 18:05 INDICATION: Right lower extremity swelling TECHNIQUE: Grayscale ultrasound images without and with compression and Doppler ultrasound images of the right lower extremity veins were obtained. COMPARISON: None. FINDINGS: The visualized portions of right common femoral vein, profunda (deep) femoral vein, femoral vein, pop liteal vein, peroneal veins, posterior tibial veins, and greater saphenous vein outflow are patent. IMPRESSION: 1. No deep venous thrombosis within the right lower extremity, as detailed above.. Reviewed, dictated and finalized at location A. IMPRESSION: 1. No deep venous thrombosis within the right lower extremity, as detailed abo ve..
--- OUTSIDE RECORDS SUMMARY | 2025-02-08 16:10 | XMS_ITS | Clinical Summary ---
Author Organization [facility] Address [address] [place] [address] Care Team Providers Care Green Building Energy Engineer Name Role Phone Lyndon Carl Primary Care Provider [phone] Source Comments [facility],non-owned Affiliates and Associated Physician Practices is amultiple site organization consisting of ambulatory clinics and hospital sitesin [place], [place], [place] and [place]. This disclosure is being madepursuant to the Care Everywhere program and may not contain all information available regarding this patient. Last updated 18.[facility] Allergies Active Allergy Reactions Criticality Noted [...] Immunizations Name Administration Dates Next Due Covid Pfizer primary monoval ent 12+ yr 0.3mL Purple [...] 9:42 AM CDT Height 170.2 cm (5' 7 ) 08/20/2022 9:42 AM CDT Body Mass Index 28.51 08/20/2022 9:42 AM CDT Plan of Treatment Health Maintenance Due Date Last Done Comments MEDICARE AWV 12 MONTHS 1945 DTAP/TDAP/TD VACCINES (1 - Tdap) 1962 PNEUMOCOCCAL VACCINE 50+ (2 of 2 - PCV) 11/21/2006 11/21/2005, 08/18/2005 Respiratory Syncytial Virus (RSV) Vaccine Pt: or over 60 yrs (1 - 1-dose 75+ series) 2018 COVID-19 VACCINE (3 - 2023-2 5 season) 2024 12/23/2020, 12/02/2020 INFLUENZA VACCINE (#1) 2024 DEPRESSION SCREENING 11/21/2024 MEDICARE AWV CALENDAR YEAR 2024 ZOSTER VACCINE Completed 06/14/2018, 03/20/2018 HEPATITIS B VACCINE Aged Out No longe r eligible based on patient's age to complete this topic HIB VACCINE Aged Out No longer eligi ble based on patient's age to complete this topic HPV VACCINE Aged Out No longer eligi ble based on patient's age to complete this topic MENINGOCOCCAL (Group B) VACCINE SHARED DECISION-MAKING Aged Out No longer eligible based on patient's age to complete this topic MENINGOCOCCAL GROUPS A/C/Y/W VACCINE Aged Out No longer eligible b ased on patient's age to complete this topic Care Teams Green Building Energy Engineer Relationship Specialty Start Date End Date Lyndon Carl DO [address] [place] [id number] PCP - General 08/13/22
--- OUTSIDE RECORDS SUMMARY | 2025-02-08 16:10 | XMS_ITS | Encounter Summary ---
Author Organization [facility] Address [address] [place] [address] Care Team Providers Care Biotechnologist Name Role Phone Lyndon Carl Primary Care Provider [phone] Encounter Details Date Type Department Care Team (Late st Contact Info) Description 02/06/2025 External Device Data [facility] ABSTRACTION Provider, Abstract NO ADDRESS ON FILE Social History Tobacco Use Types Packs/Day Years Used Date Smoking Tobacco: Former Cigarettes 2 40 0 01/23/1957 - 01/23/1997 Smokeless Tobacco: Never Alcohol Use Standard Drinks/Week Comments Yes 4 (1 standard drink = 0.6 oz pur e alcohol) Sex and Gender Information Value Date Recorded Sex Assigned at Not on file Legal Sex Male 3:15 PM CDT Gender Identity Not on file Sexual Orientation Not on file documented as of this encounter Plan of Treatment Upcoming Encounters Date Type Department Care Team (Late st Contact Info) Description 06/07/2025 9:15 AM CDT Office Visit [facility] Pulmonology [facility] [address] [place] [phone] Winston Thompson MD [address] [place] [address] 10/10/2025 8:40 AM COMMUNITY DEVELOPMENT COORDINATOR Office Visit [facility] Pulmonology - [facility] [address] [place] [address] [place] [address] [place] [address] documented as of this encounter Visit Diagnoses Not on filedocumented in this encounter Care Teams Biotechnologist Relationship Specialty Start Date End Date Lyndon Carl DO [address] [facility] [place] [address] PCP - General Internal Medicine 10/05/24 documented as of this encounter
--- OUTSIDE RECORDS SUMMARY | 2025-02-08 16:10 | XMS_ITS | Clinical Summary ---
Author Organization [facility] Address [address] [place] [address] Care Team Providers Care Aboriginal Home School Liaison Officer Name Role Phone Lyndon Carl DO Primary Care Provider [phone] Allergies Active Allergy Reactions Criticality Noted Date [...] Encounters Date Type Department Care Team Description 02/06/2025 External Device Data [facility] ABSTRACTION Provider, Abstract 01/26/2025 External Device Data [facility] ABSTRACTION Provider, Abstract 01/25/2025 External Device Data [facility] ABSTRACTION Provider, Abstract 01/23/2025 External Device Data [facility] ABSTRACTION Provider, Abstract 12/18/2024 External Device Data STL ABSTRACTION Provider, Abstract 11/23/2024 Abstract [facility] Pulmonology - [facility] [address] [place] [phone] Ariane Rebolledo NP 11/22/2024 Abstract [facility] Pulmonology - [facility] [address] [place] [phone] Ariane Rebolledo NP 11/22/2024 Telephone [facility] Pulmonology - [facility] [address] [place] [phone] Avery Roberson MD Information from Last 3 Months Family History Medical [...] Comments Blood Pressure 136/68 10/09/2024 8:36 AM CIRCLE BEVELER Pulse 91 10/09/2024 8:36 AM CIRCLE BEVELER Temperature 36.6 C (97.9 F) 10/09/2024 8:36 AM CIRCLE BEVELER Respiratory Rate 12 10/09/2024 8:36 AM CIRCLE BEVELER Oxygen Saturation 95% 10/09/2024 8:36 AM CIRCLE BEVELER Inhaled Oxygen Concentration - - Weight 87.5 kg (193 lb) 10/09/2024 8:36 AM CIRCLE BEVELER Height 170.2 cm (5' 7 ) 10/09/2024 8:36 AM CIRCLE BEVELER Body Mass Index 30.23 10/09/2024 8:36 AM CIRCLE BEVELER Plan of Treatment Upcoming Encounters Date Type Department Care Team (Late st Contact Info) Description 06/07/2025 9:15 AM CDT Office Visit [facility] Pulmonology [facility] [address] [place] [phone] Winston Thompson MD [address] [place] [phone] 10/10/2025 8:40 AM CIRCLE BEVELER Office Visit [facility] Pulmonology - [facility] [address] [place] [address] [place] [address] [address] [place] [address] Health Maintenance Due Date Last Done Comments DIABETES ANNUAL FOOT EXAM 1961 DIABETES ANNUAL RETINAL EXAM 1961 DIABETES HBA1C Q 6 MONTHS 1961 DIABETES MICROALBUMIN ANNUAL SCREEN 1961 LDL CHOLESTEROL ANNUAL 1961 DTAP/TDAP/TD VACCINES (1 - Tdap) 1962 RSV VACCINE (60+ or ) (1 - 1-dose 75+ series) 2018 INFLUENZA VACCINE (#1) 2024 [place] Preventative Visit/Annual Wellness Visit 11/21/2024 PNEUMOCOCCAL VACCINE 50+ YEARS Completed 0 02/18/2015, 02/02/2012, 11/21/2005, Additional history exists ZOSTER VACCINE Completed 06/14/2018, 03/20/2018 Insurance [facility] M[facility] Care Teams Aboriginal Home School Liaison Officer Relationship Specialty Start Date End Date Lyndon Carl DO [address] [place] [address] PCP - General Internal Medicine 10/05/24
[2025-02-08 16:49] VITALS: BP 140/90; PULSE 84; RESP 18; TEMP 36.4; O2SAT 95
--- NOTE | 2025-02-08 16:51 | ED.EXTPRO ---
HPI - Extremity Problem General Chief complaint: Extremity Problem,Nontraumatic <Chetna Lundberg PA-C - Last Filed: 02/08/25 16:53> Stated complaint: Swelling Rt LE- sent by PMD r/o DVT <Chetna Lundberg PA-C - Last Filed: 02/08/25 16:53> Time Seen by Provider: 02/08/25 18:44 <Chetna Lundberg PA-C - Last Filed: 02/08/25 16:53> Focused HPI: 79-year-old male with history of CKD, type 2 diabetes, GERD, hypertension, hyperlipidemia presents to the emergency department for DVT rule out to the right lower extremity. Patient states yesterday he began to notice increased swelling to the right lower extremity. He contacted his PCP was advised to come to the ER to rule out a DVT. He denies pain, injury or trauma to this leg. No history of DVT or PE. Denies cough or congestion, hemoptysis, chest pain. Is endorsing shortness of breath which is unchanged from his baseline. He was recently hospitalized in December for COPD exacerbation. He is not anticoagulated. He does have a lesser amount of edema to the left lower extremity but states this is unchanged from baseline. GENERAL: Well-appearing, well-nourished, and in no acute distress. HEAD: Normocephalic, atraumatic. CHEST: Clear to auscultation. ?No respiratory distress. EXT: 1+ pitting edema to the left lower extremity, 3+ pitting edema to the right lower extremity. No overlying erythema or warmth, no tenderness. DP pulse 2 +, sensation intact HEART: Regular rate and rhythm.? NEURO: ?Alert and oriented x3. Patient screened in triage and initial orders placed.? ?Additional care and disposition to be based upon?diagnostic testing and treatment. <Chetna Lundberg PA-C - Last Filed: 02/08/25 16:53> History of Present Illness HPI Narrative: Agree with the above with the following additions/corrections: PCP is Dr Carl. No injury. Had been having subjective fevers and chills last night. Patient has not yet taken anything for pain because he states it is not painful. He has some shortness of breath. No history heart failure. <Jeanne Fernández MD - Last Filed: 02/09/25 01:30> Related Data Home medications: Home Medications ?Medication ?Instructions ?Recorded ?Confirmed ?Last Taken ?Type cholecalciferol (vitamin D3) 25 2,000 unit PO DAILY 12/05/19 01/17/25 11/16/24 History mcg (1,000 unit) capsule epinephrine 0.3 mg/0.3 mL 0.3 mg IM ONCE 12/05/19 01/17/25 Unknown History injection, auto-injector (EpiPen 2-Gareth) ropinirole 0.5 mg tablet 0.5 mg PO DAILY 12/05/19 01/17/25 12/25/24 History albuterol sulfate 90 mcg/actuation 2 puff inhalation Q4H PRN 12/16/21 01/17/25 12/25/24 History aerosol inhaler (Proventil HFA) Shortness Of Breath fluticasone 250 mcg-salmeterol 50 1 inh inhalation DAILY 11/17/24 01/17/25 12/25/24 History mcg/dose blistr powdr for inhalation (Wixela Inhub) amlodipine 5 mg tablet 5 mg PO DAILY 12/06/24 01/17/25 12/25/24 History cyanocobalamin (vitamin B-12) 2,000 mcg PO DAILY 12/27/24 01/17/25 Unknown History 1,000 mcg tablet <Chetna Lundberg PA-C - Last Filed: 02/08/25 16:53> Allergies/Adverse reactions: Allergies Allergy/AdvReac Type Severity Reaction Status Date / Time bee pollen Allergy Unknown unknown Verified 01/17/25 08:18 clarithromycin Allergy Unknown uknown Verified 01/17/25 08:18 crab Allergy Unknown Hives Verified 01/17/25 08:18 nut - unspecified Allergy Unknown sesame Verified 01/17/25 08:18 seed oil and nuts sesame oil Allergy Unknown Anaphylactic Verified 01/17/25 08:18 Shock sesame seed Allergy Unknown Anaphylactic Verified 01/17/25 08:18 Shock shellfish derived Allergy Unknown Hives Verified 01/17/25 08:18 amoxicillin (From Augmentin) AdvReac Severe Vomiting Verified 01/17/25 08:18 clavulanic acid (From AdvReac Severe Vomiting Verified 01/17/25 08:18 Augmentin) <Chetna Lundberg PA-C - Last Filed: 02/08/25 16:53> [facility] Past Medical History Medical History: Medical History Hypothyroidism COPD (chronic obstructive pulmonary disease) Atherosclerosis of aorta T2DM (type 2 diabetes mellitus) Obesity (BMI 30-39.9) GERD (gastroesophageal reflux disease) Restless leg syndrome Asthma Hearing loss Hyperlipidemia Hypertension Diabetes CKD (chronic kidney disease) DAPHNE (obstructive sleep apnea) <Chetna Lundberg PA-C - Last Filed: 02/08/25 16:53> Surgical History Surgical History: Surgical History History of surgical procedure on mouth surgery on uvula to improve sleep apnea History of hemorrhoidectomy <Chetna Lundberg PA-C - Last Filed: 02/08/25 16:53> Family History Family History: Family History Mother Carcinoma of colon Father Family history of congestive heart failure Grandparent Diabetes mellitus Sibling Arthritis Other Family history of malignant neoplasm <Chetna Lundberg PA-C - Last Filed: 02/08/25 16:53> Social History Social History: Social History Smoking packs per day: 2 Smoking cigarettes per day: 40.0 Years smoked: 40 Smoking pack-years: 80.00 Smoking status: Former smoker Second hand tobacco smoke exposure: No Alcohol intake: current Drinks per week: 3 Substance use: never Substance use type: does not use Do You Feel Safe in your Home?: Yes Lack of Transportation: No Lack of Food: Never True Current Housing: I Have Housing Concerned About Future Housing: No Difficulty Paying Gas/Electric Bills: No Difficulty Paying for Meds: No Currently Unemployed: No Education: Master's Degree or Higher Difficulty w/ Childcare or Family Care: No Living arrangements: with family Occupation/Education: retired 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[employer] Gender identity (if verbalized by the patient): Male Spiritual care concerns: No <Chetna Lundberg PA-C - Last Filed: 02/08/25 16:53> Exam Const: General: healthy appearing, no acute distress and alert; No confusion, diaphoretic or ill appearing <Jeanne Fernández MD - Last Filed: 02/09/25 01:30> Nutritional Appearance: well nourished <Jeanne Fernández MD - Last Filed: 02/09/25 01:30> Orientation/consciousness: patient oriented x3 <Jeanne Fernández MD - Last Filed: 02/09/25 01:30> Limitations: no limitations <Jeanne Fernández MD - Last Filed: 02/09/25 01:30> HENMT: Head: normal to inspection <Jeanne Fernández MD - Last Filed: 02/09/25 01:30> Other: gross auditory acuity intact <Jeanne Fernández MD - Last Filed: 02/09/25 01:30> Eyes: Direct Ophthalmoscopy: no photophobia <Jeanne Fernández MD - Last Filed: 02/09/25 01:30> Other: no scleral icterus; <Jeanne Fernández MD - Last Filed: 02/09/25 01:30> Neck: Neck: no meningeal signs <Jeanne Fernández MD - Last Filed: 02/09/25 01:30> Resp: Effort & Inspection: normal respiratory effort and not labored <Jeanne Fernández MD - Last Filed: 02/09/25 01:30> Cardio: Rate: regular rate, not bradycardic and not tachycardic <Jeanne Fernández MD - Last Filed: 02/09/25 01:30> Other: legs are warm and well perfused <Jeanne Fernández MD - Last Filed: 02/09/25 01:30> Skin: General skin exam: normal color, no jaundice and no pallor <MD Amber Farmer Last Filed: 02/09/25 01:30> Rashes: no rashes <Jeanne Fernández MD - Last Filed: 02/09/25 01:30> Other: no erythema, induration; skin warm but well-perfused, not particularly hot; no venous stasis. <Jeanne Fernández MD - Last Filed: 02/09/25 01:30> Neuro: General: patient oriented x3 and moves all extremities <Jeanne Fernández MD - Last Filed: 02/09/25 01:30> Speech: normal speech <Jeanne Fernández MD - Last Filed: 02/09/25 01:30> Extrem: General: no pedal edema <Jeanne Fernández MD - Last Filed: 02/09/25 01:30> Other: trace edema L LE. 2+ edema R LE. No lacerations/ecchymosis. No palpable cord. No TTP. <Jeanne Fernández MD - Last Filed: 02/09/25 01:30> Psych: Mental Status: mental status grossly normal <Jeanne Fernández MD - Last Filed: 02/09/25 01:30> Affect: normal affect, No Sad affect present and No Anxious affect present <Jeanne Fernández MD - Last Filed: 02/09/25 01:30> Attitude: cooperative <Jeanne Fernández MD - Last Filed: 02/09/25 01:30> Other: exceedingly pleasant <Jeanne Fernández MD - Last Filed: 02/09/25 01:30> Course Vital Signs Vital signs: Vital Signs Temperature 97.5 F L 02/08/25 16:49 Pulse Rate 84 02/08/25 16:49 Respiratory Rate 18 02/08/25 16:49 Blood Pressure 140/90 02/08/25 16:49 Pulse Oximetry 95 02/08/25 16:49 Oxygen Delivery Room Air 02/08/25 16:49 Temperature 97.5 F L 02/08/25 16:49 Pulse Rate 78 02/08/25 20:02 Respiratory Rate 17 02/08/25 20:02 Blood Pressure 152/74 H 02/08/25 20:02 Pulse Oximetry 98 02/08/25 20:02 Oxygen Delivery Room Air 02/08/25 16:49 <Chetna Lundberg PA-C - Last Filed: 02/08/25 16:53> Vital Signs Temperature 97.5 F L 02/08/25 16:49 Pulse Rate 84 02/08/25 16:49 Respiratory Rate 18 02/08/25 16:49 Blood Pressure 140/90 02/08/25 16:49 Pulse Oximetry 95 02/08/25 16:49 Oxygen Delivery Room Air 02/08/25 16:49 Temperature 97.5 F L 02/08/25 16:49 Pulse Rate 78 02/08/25 20:02 Respiratory Rate 17 02/08/25 20:02 Blood Pressure 152/74 H 02/08/25 20:02 Pulse Oximetry 98 02/08/25 20:02 Oxygen Delivery Room Air 02/08/25 16:49 <Jeanne Fernández MD - Last Filed: 02/09/25 01:30> MDM - Extremity (Nontraumatic) MDM Narrative Medical decision making narrative: Patient presents as PMD requested DVT r/o for acute onset R LE swelling that started yesterday. In the ED he is afebrile with VS WNL. Normocytic anemia few stable from previous. US negative for DVT. Rest of work up unremarkable. Stable for discharge and advised to follow up with PCP. Encouraged elevation and compression stockings. <Jeanne Fernández MD - Last Filed: 02/09/25 01:30> Differential Diagnosis Differential diagnosis: Likely cellulitis, superficial thrombophlebitis, lower extremity edema, deep vein thrombosis of lower extremity and other (dependent edema; lymphedema; symptomatic anemia; heart failure; rhabdo; electrolyte abnormalities) <Jeanne Fernández MD - Last Filed: 02/09/25 01:30> Lab Data Attestation: I reviewed the patient's lab results. <Jeanne Fernández MD - Last Filed: 02/09/25 01:30> Result diagrams: 02/08/25 18:02 02/08/25 18:02 <Chetna Lundberg PA-C - Last Filed: 02/08/25 16:53> Labs: Lab Results 02/08/25 Range/Units 18:02 WBC 6.5 (4.5-10.0) K/mm3 RBC 4.02 L (4.6-6.20) M/mm3 Hgb 11.5 L (14.0-18.0) g/dL Hct 36.5 L (42.0-52.0) % MCV 90.8 (80-100) fl MCH 28.6 (26-34) pg MCHC 31.5 L (32-36) g/dl RDW 13.7 (11.5-14.5) % Plt Count 189 (150-375) k/mm3 MPV 9.3 (7.4-10.4) fl Immature Gran % (Auto) 0.5 (0-0.5) % Neut % (Auto) 54.4 (45.5-73.1) % Lymph % (Auto) 32.1 (18.3-44.2) % [place] % (Auto) 11.3 H (2.6-8.5) % Eos % (Auto) 0.9 (0-4.4) % Baso % (Auto) 0.8 (0.2-1.2) % Lymph # (Auto) 2.08 (0.9-3.2) K/mm3 [place] # (Auto) 0.7 H (0.1-0.6) K/mm3 Eos # (Auto) 0.1 (0-0.3) K/mm3 Baso # (Auto) 0.1 (0.0-0.1) K/mm3 Abs Immat Gran (auto) 0.03 (0.00-0.031) K/mm3 Absolute Neuts (auto) 3.5 (1.3-6.7) K/mm3 Absolute Nucleated RBC 0.000 (0.0-0.012) K/mm3 Nucleated RBC % 0.0 (0.0-0.2) % PT 13.2 (11.1-14.7) Seconds INR 1.0 APTT 24.6 (22.3-36.8) Seconds Sodium 134 L (137-145) mmol/L Potassium 3.7 (3.4-5.0) mmol/L Chloride 97 L (98-107) mmol/L Carbon Dioxide 27 (22-30) mmol/L Anion Gap 10 (4-12) mmol/L BUN 20 (9-20) mg/dL Creatinine 1.11 (0.7-1.3) mg/dL Estim Creat Clear Calc 50 ml/min Estimated GFR > 60 (59 - ) Glucose 92 (65-110) mg/dL Calcium 8.9 (8.4-10.2) mg/dL Magnesium 2.0 (1.6-2.3) mg/dL Total Creatine Kinase 104 (55-170) U/L NT-Pro-B Natriuret Pep 66 (19.9-100) pg/mL <Chetna Lundberg PA-C - Last Filed: 02/08/25 16:53> Lab Results 02/08/25 Range/Units 18:02 WBC 6.5 (4.5-10.0) K/mm3 RBC 4.02 L (4.6-6.20) M/mm3 Hgb 11.5 L (14.0-18.0) g/dL Hct 36.5 L (42.0-52.0) % MCV 90.8 (80-100) fl MCH 28.6 (26-34) pg MCHC 31.5 L (32-36) g/dl RDW 13.7 (11.5-14.5) % Plt Count 189 (150-375) k/mm3 MPV 9.3 (7.4-10.4) fl Immature Gran % (Auto) 0.5 (0-0.5) % Neut % (Auto) 54.4 (45.5-73.1) % Lymph % (Auto) 32.1 (18.3-44.2) % [place] % (Auto) 11.3 H (2.6-8.5) % Eos % (Auto) 0.9 (0-4.4) % Baso % (Auto) 0.8 (0.2-1.2) % Lymph # (Auto) 2.08 (0.9-3.2) K/mm3 [place] # (Auto) 0.7 H (0.1-0.6) K/mm3 Eos # (Auto) 0.1 (0-0.3) K/mm3 Baso # (Auto) 0.1 (0.0-0.1) K/mm3 Abs Immat Gran (auto) 0.03 (0.00-0.031) K/mm3 Absolute Neuts (auto) 3.5 (1.3-6.7) K/mm3 Absolute Nucleated RBC 0.000 (0.0-0.012) K/mm3 Nucleated RBC % 0.0 (0.0-0.2) % PT 13.2 (11.1-14.7) Seconds INR 1.0 APTT 24.6 (22.3-36.8) Seconds Sodium 134 L (137-145) mmol/L Potassium 3.7 (3.4-5.0) mmol/L Chloride 97 L (98-107) mmol/L Carbon Dioxide 27 (22-30) mmol/L Anion Gap 10 (4-12) mmol/L BUN 20 (9-20) mg/dL Creatinine 1.11 (0.7-1.3) mg/dL Estim Creat Clear Calc 50 ml/min Estimated GFR > 60 (59 - ) Glucose 92 (65-110) mg/dL Calcium 8.9 (8.4-10.2) mg/dL Magnesium 2.0 (1.6-2.3) mg/dL Total Creatine Kinase 104 (55-170) U/L NT-Pro-B Natriuret Pep 66 (19.9-100) pg/mL <Jeanne Fernández MD - Last Filed: 02/09/25 01:30> Imaging Data Radiologist's impression: Impressions Venous Doppler Study 02/08/25 18:14 IMPRESSION: 1. No deep venous thrombosis within the right lower extremity, as detailed above.. <Jeanne Fernández MD - Last Filed: 02/09/25 01:30> Discharge Plan Discharge Clinical Impression: Normocytic anemia, Edema of right lower extremity <Chetna Lundberg PA-C - Last Filed: 02/08/25 16:53> Patient Disposition: Home, Self-Care <Chetna Lundberg PA-C - Last Filed: 02/08/25 16:53> Condition: Stable <Chetna Lundberg PA-C - Last Filed: 02/08/25 16:53> Instructions: Antibiotic Form, Leg Edema (ED), Anemia (ED) <Chetna Lundberg PA-C - Last Filed: 02/08/25 16:53> Additional Instructions: No blood clot and other labs were good/stable. FOllow up with primary care physician. Return to ED if new/worsening symptoms. Can try compression stockings and elevate leg(s) when laying flat. <Chetna Lundberg PA-C - Last Filed: 02/08/25 16:53> Patient Language: Georgian <Chetna Lundberg PA-C - Last Filed: 02/08/25 16:53> Prescriptions: No Action albuterol sulfate 2.5 mg /3 mL (0.083 %) solution for nebulization See Rx Instructions .ROUTE .COMPLEX Qty: 75 2RF Dose Instruction: INHALE 2.5 MG (3 ML) VIA NEBULIZER EVERY 6 HOURS NEEDED FOR SHORTNESS OF BREATH OR WHEEZING Rx Instructions: INHALE 2.5 MG (3 ML) VIA NEBULIZER EVERY 6 HOURS NEEDED FOR SHORTNESS OF BREATH OR WHEEZING metformin 500 mg tablet See Rx Instructions .ROUTE .COMPLEX Qty: 180 1RF Dose Instruction: TAKE 1 TABLET BY MOUTH TWICE A DAY WITH MORNING AND EVENING MEALS Rx Instructions: TAKE 1 TABLET BY MOUTH TWICE A DAY WITH MORNING AND EVENING MEALS amlodipine 5 mg tablet 5 mg PO DAILY cyanocobalamin (vitamin B-12) 1,000 mcg tablet 2,000 mcg PO DAILY fluticasone propion-salmeterol [Wixela Inhub] 250-50 mcg/dose blister with device 1 inh inhalation DAILY ropinirole 0.5 mg tablet 0.5 mg PO DAILY epinephrine [EpiPen 2-Gareth] 0.3 mg/0.3 mL auto-injector 0.3 mg IM ONCE Rx Instructions: as a single dose cholecalciferol (vitamin D3) 25 mcg (1,000 unit) capsule 2,000 unit PO DAILY albuterol sulfate [Proventil HFA] 90 mcg/actuation HFA aerosol inhaler 2 puff INHALATION Q4H PRN (Reason: Shortness Of Breath) lovastatin 20 mg tablet See Rx Instructions .ROUTE .COMPLEX Qty: 90 2RF Dose Instruction: TAKE 1 TABLET BY MOUTH EVERY DAY IN THE EVENING Rx Instructions: TAKE 1 TABLET BY MOUTH EVERY DAY IN THE EVENING hydrochlorothiazide 25 mg tablet See Rx Instructions .ROUTE .COMPLEX Qty: 90 1RF Dose Instruction: TAKE 1 TABLET BY MOUTH EVERY DAY Rx Instructions: TAKE 1 TABLET BY MOUTH EVERY DAY levothyroxine 50 mcg tablet See Rx Instructions .ROUTE .COMPLEX Qty: 90 1RF Dose Instruction: TAKE 1 TABLET BY MOUTH EVERY DAY Rx Instructions: TAKE 1 TABLET BY MOUTH EVERY DAY <Chetna Lundberg PA-C - Last Filed: 02/08/25 16:53> Follow-up/Referrals: Saroj Lujan APRN [Primary Care Provider] - <Chetna Lundberg PA-C - Last Filed: 02/08/25 16:53> Time of Disposition: 20:37 <Chetna Lundberg PA-C - Last Filed: 02/08/25 16:53> 20:37 <Jeanne Fernández MD - Last Filed: 02/09/25 01:30>
[2025-02-08 18:11] LABS: Basophils Absolute Auto 0.1 K/mm3 (0.0-0.1); Basophils Percent Auto 0.8 % (0.2-1.2); Eosinophils Absolute Auto 0.1 K/mm3 (0-0.3); Eosinophils Percent Auto 0.9 % (0-4.4); Hematocrit 36.5 % (42.0-52.0); Hemoglobin 11.5 g/dL (14.0-18.0); Immature Granulocyte Absolute 0.03 K/mm3 (0.00-0.031); Immature Granulocyte Percent A 0.5 % (0-0.5); Lymphocytes Absolute Auto 2.08 K/mm3 (0.9-3.2); Lymphocytes Percent Auto 32.1 % (18.3-44.2); Mean Corpuscular HGB Conc 31.5 g/dl (32-36); Mean Corpuscular Hemoglobin 28.6 pg (26-34); Mean Corpuscular Volume 90.8 fl (80-100); Mean Platelet Volume 9.3 fl (7.4-10.4); Monocytes Absolute Auto 0.7 K/mm3 (0.1-0.6); Monocytes Percent Auto 11.3 % (2.6-8.5); Neutrophils Absolute Auto 3.5 K/mm3 (1.3-6.7); Neutrophils Percent Auto 54.4 % (45.5-73.1); Platelet Count Result 189 k/mm3 (150-375); Red Blood Count 4.02 M/mm3 (4.6-6.20); Red Cell Distribution Width 13.7 % (11.5-14.5); White Blood Count 6.5 K/mm3 (4.5-10.0)
[2025-02-08 18:24] LABS: Partial Thromboplastin Time 24.6 Seconds (22.3-36.8); Prothrombin Time 13.2 Seconds (11.1-14.7)
[2025-02-08 18:30] LABS: Anion Gap 10 mmol/L (4-12); Blood Urea Nitrogen 20 mg/dL (9-20); Calcium 8.9 mg/dL (8.4-10.2); Carbon Dioxide 27 mmol/L (22-30); Chloride 97 mmol/L (98-107); Estimated CRCL calculation 50 ml/min; Estimated Glomerular Filt Rate > 60; Glucose 92 mg/dL (65-110); Potassium 3.7 mmol/L (3.4-5.0); Sodium 134 mmol/L (137-145)
--- OUTSIDE RECORDS SUMMARY | 2025-02-08 18:52 | XMS_ITS | Clinical Summary ---
Author Organization [facility] Address [address] [place] [address] Care Team Providers Care Washer Assembler Name Role Phone Lyndon Carl Primary Care Provider [phone] Source Comments [facility],non-owned Affiliates and Associated Physician Practices is amultiple site organization consisting of ambulatory clinics and hospital sitesin [place], [place], [place] and [place]. This disclosure is being madepursuant to the Care Everywhere program and may not contain all information available regarding this patient. Last updated 18.[facility] Allergies Active Allergy Reactions Criticality Noted [...] age to complete this topic Care Teams Washer Assembler Relationship Specialty Start Date End Date Lyndon Carl DO [address] [place] [id number] PCP - General 08/13/22
--- OUTSIDE RECORDS SUMMARY | 2025-02-08 18:52 | XMS_ITS ---
Author Organization [facility] Address [address] [place], [place] [id number] Care Team Providers Care Churn Driller Helper Name Role Phone Danyel Srivastava Unavailable Unavailable DMITRIYROLO EDWARDS Unavailable [phone] Allergies No Known Allergies REASON FOR VISIT L heel pain Medications Medication SIG (Take, Route, Fr equency, Duration) Notes Start Date End Date Status rOPINIRole HCl Activ e Lovastatin Active metFORMIN HCl Active hydroCHLOROthiazide Active Levothyroxine Sodium Active Meloxicam 15 MG 1 tablet Orally Once a day for 30 day(s) 03/02/2024 04/01/2024 Active Encounters Encounter Location Date Provider Diagnosis [facility] [place] [address] [place], [place] [id number] 03/02/2024 ROLO ARTEAGA Plantar fasciitis M72.2 ; Calcaneal spur of left foot M77.32 and Left foot pain M79.672 Assessments Encounter Date Diagnosis (ICD Code) Assessment Notes Treatment Notes Treatment Clinical Notes Section Notes 03/02/2024 Plantar fasciitis (ICD-10 - M72.2) Orthotic Powerstep: Powerstep OTC orthotics were dispensed. A removable strapping was applied to the patient's left foot. The patient was instructed on its use. The patient was given heel stretching exercises. 03/02/2024 Calcaneal spur of left foot (ICD-10 - M77.32) 03/02/2024 Left foot pain (ICD-10 - M79.672) Plan Of Treatment Medication Medication Name Sig Start Date Stop Date Notes Meloxicam 15 MG 1 tablet Orally Once a day for 30 day(s) 0 03/02/2024 04/01/2024 Treatment Notes Assessment Notes Plantar fasciitis Orthotic Powerstep: Powerstep OTC orthotics were dispensed. A removable strapping was applied to the patient's left foot. The patient was instructed on its use. The patient was given heel stretching exercises. Progress Notes * LOI MONTANEZDOB:1945 (78 yo M)Acc No.[id number]:03/02/2024 Progress Notes Patient: LOI TAYLOR Provider: Rocio Arteaga DPM :1945 A ge:78 Y S ex:Male Date:03/02/2024 Address:[address] [place] [address], [id number] Subjective: * Chief Complaints: * 1 . L heel pain. * HPI: H PI: New Complaint P atient presents for a new patient consultation., Patient complains of an issue to left heel pain. Patient states duration of problem is 4 weeks. Patient states pain is only present when walking barefoot on hard surfaces. Patient denies any injury., MA: LB. * Medical History: S leep apnea, Hypertension, Lung Disease. * Medications: T aking metFORMIN HCl , Taking hydroCHLOROthiazide , Taking Levothyroxine Sodium , Taking rOPINIRole HCl , Taking Lovastatin * Allergies: N .K.D.A. Objective: * Examination: P hysical Examination: Gen: T he patient is awake, alert, well developed, well groomed and well nourished. They are in no apparent distress. . Musc: P ain on palpation of left heel. Foot structure is planus bilateral . Derm: S kin is warm and dry, with no rashes, good skin turgor and normal hair distribution. . Neuro: G rossly intact to light touch bilateral . Vasc: D orsalis pedis and posterior tibial pulses 2+ bilaterally. No edema noted. Capillary fill time < 3 seconds to all digits. . X -Ray: LEFT FOOT S tudies from outside facility reviewed: X-rays reveal no sign of fracture, dislocation or osseous lesions. There is a plantar spur noted on the calcaneous. . Assessment: * Assessment: 1. P lantar fasciitis - M72.2 (Primary) 2 . C alcaneal spur of left foot - M77.32 3 . L eft foot pain - M79.672 Plan: * Treatment: * Billing Information: * Visit Code: 03803 Office Visit, New Pt., Level 3. * Procedure Codes: * Sign off status: Completed true * Provider: Rocio Arteaga, SHAYLA Date: 0 03/02/2024 Generated for Maggie vargas/Calvin/Mery on: 0 02/08/2025 06:50 PM CDT History and Physical Notes * HPI (History of Present Illness) Category Sub-Category Detail Notes Category Not es HPI New Complaint Patient presents for a new patient consultation., Patient complains of an issue to left heel pain. Patient states duration of problem is 4 weeks. Patient states pain is only present when walking barefoot on hard surfaces. Patient denies any injury., MA: LB Examination Category Sub-Category Detail Notes Category Not es X-Ray LEFT FOOT Studies from out side facility reviewed: X-rays reveal no sign of fracture, dislocation or osseous lesions. There is a plantar spur noted on the calcaneous. Physical Examination Gen: The patient is awake, alert, well developed, well groomed and well nourished. They are in no apparent distress. Vasc: Dorsalis pedis and p osterior tibial pulses 2+ bilaterally. No edema noted. Capillary fill time < 3 seconds to all digits. Neuro: Grossly intact to li ght touch bilateral Musc: Pain on palpation of left heel. Foot structure is planus bilateral Derm: Skin is warm and dry , with no rashes, good skin turgor and normal hair distribution.
--- OUTSIDE RECORDS SUMMARY | 2025-02-08 18:52 | XMS_ITS | Encounter Summary ---
Author Organization [facility] Address [address] [place] [address] Care Team Providers Care Stripping Shovel Oiler Name Role Phone Lyndon Carl Primary Care Provider [phone] Encounter Details Date Type Department Care Team [...] Description 06/07/2025 9:15 AM CDT Office Visit [facility] Pulmonology [facility] [address] [place] [phone] Winston Thompson MD [address] [place] [address] 10/10/2025 8:40 AM REMOTE INPATIENT CODER Office Visit [facility] Pulmonology - [facility] [address] [place] [address] [place] [address] [place] [address] documented as of this encounter Visit Diagnoses Not on filedocumented in this encounter Care Teams Stripping Shovel Oiler Relationship Specialty Start Date End Date Lyndon Carl DO [address] [place] [address] PCP - General Internal Medicine 10/05/24 documented as of this encounter
--- OUTSIDE RECORDS SUMMARY | 2025-02-08 18:52 | XMS_ITS | Clinical Summary ---
Author Organization [facility] Address [address] [place] [address] Care Team Providers Care Pension Consultant Name Role Phone Lyndon Carl DO Primary Care Provider [phone] Allergies Active Allergy Reactions Criticality Noted Date [...] Data STL ABSTRACTION Provider, Abstract 11/23/2024 Abstract [facility] Pulmonology - [facility] [address] [facility] [address] [place] [phone] Ariane Rebolledo NP 11/22/2024 Abstract [facility] Pulmonology - [facility] [address] [facility] [address] [place] [phone] Ariane Rebolledo NP 11/22/2024 Telephone [facility] Pulmonology - [facility] [address] [place] [phone] Avery Roberson MD Information from Last 3 [...] Comments Blood Pressure 136/68 10/09/2024 8:36 AM TRAIN CONTROL TECHNICIAN Pulse 91 10/09/2024 8:36 AM TRAIN CONTROL TECHNICIAN Temperature 36.6 C (97.9 F) 10/09/2024 8:36 AM TRAIN CONTROL TECHNICIAN Respiratory Rate 12 10/09/2024 8:36 AM TRAIN CONTROL TECHNICIAN Oxygen Saturation 95% 10/09/2024 8:36 AM TRAIN CONTROL TECHNICIAN Inhaled Oxygen Concentration - - Weight 87.5 kg (193 lb) 10/09/2024 8:36 AM TRAIN CONTROL TECHNICIAN Height 170.2 cm (5' 7 ) 10/09/2024 8:36 AM TRAIN CONTROL TECHNICIAN Body Mass Index 30.23 10/09/2024 8:36 AM TRAIN CONTROL TECHNICIAN Plan of Treatment Upcoming Encounters Date Type Department Care Team (Late st Contact Info) Description 06/07/2025 9:15 AM CDT Office Visit [facility] Pulmonology [facility] [address] [place] [phone] Winston Thompson MD [address] [place] [address] 10/10/2025 8:40 AM TRAIN CONTROL TECHNICIAN Office Visit [facility] Pulmonology - [facility] [address] [facility] [address] [place] [address] [place] [address] [facility] [address] [place] [address] Health Maintenance Due Date Last Done Comments DIABETES ANNUAL FOOT EXAM 1961 DIABETES ANNUAL RETINAL EXAM 1961 DIABETES HBA1C Q 6 MONTHS 1961 DIABETES MICROALBUMIN ANNUAL SCREEN 1961 LDL CHOLESTEROL ANNUAL 1961 DTAP/TDAP/TD VACCINES (1 - Tdap) 1962 RSV VACCINE (60+ or ) (1 - 1-dose 75+ series) 2018 INFLUENZA VACCINE (#1) 2024 [place] Preventative Visit/Annual Wellness Visit 11/21/2024 PNEUMOCOCCAL VACCINE 50+ YEARS Completed 0 02/18/2015, 02/02/2012, 11/21/2005, Additional history exists ZOSTER VACCINE Completed 06/14/2018, 03/20/2018 Insurance [facility] MCR Care Teams Pension Consultant Relationship Specialty Start Date End Date Lyndon Carl DO [address] [facility] [address] [place] [address] PCP - General Internal Medicine 10/05/24
--- OUTSIDE RECORDS SUMMARY | 2025-02-08 18:52 | XMS_ITS | Patient Health Record ---
Author Organization [facility] Address [address] [place], [place] [id number] Care Team Providers Care Delivery Engineer Name Role Phone Danyel Srivastava Unavailable Unavailable ROLO ZHOU Unavailable [phone] Allergies No Known Allergies Reason For Referral Reason ESSENCE REFERRAL ( L EVEL 3 ) [id number] Diagnosis 1 Left foot pain (M79. 672) Referring Provider First Name Danyel Referring Provider Last Name Atif Referred Organization [facility] Referred Provider ROLO ZHOU Referred Address [address],[place], [id number], Referred Provider Specialty Podiatry Referral Priority Routine Medications Medication SIG (Take, Route, Fr equency, Duration) Notes Start Date End Date Status Lovastatin Active metFORMIN HCl Active hydroCHLOROthiazide Active rOPINIRole HCl Activ e Levothyroxine Sodium Active Encounters Encounter Location Date Provider Diagnosis [facility] [place] [facility] [place] Tashi HINOJOSA [address] [place] [id number] 03/02/2024 ROLO ZHOU Plantar fasciitis M72.2 ; Calcaneal spur of left foot M77.32 and Left foot pain M79.672 [facility] [place] [facility] [place] HINO[facility] [address] [place] [id number] 03/16/2024 ROLO ZHOU Plantar fasciitis M72.2 ; Calcaneal spur of left foot M77.32 and Left foot pain M79.672 [facility] [place] [address] MARY HINOJOSA [address] [place] [id number] 03/01/2024 Assessments Encounter Date Diagnosis (ICD Code) Assessment Notes Treatment Notes Treatment Clinical Notes Section Notes 03/02/2024 Plantar fasciitis (ICD-10 - M72.2) Orthotic Powerstep: Powerstep OTC orthotics were dispensed. A removable strapping was applied to the patient's left foot. The patient was instructed on its use. The patient was given heel stretching exercises. 03/02/2024 Calcaneal spur of left foot (ICD-10 - M77.32) 03/16/2024 Plantar fasciitis (ICD-10 - M72.2) Continue current therapy. 03/02/2024 Left foot pain (ICD-10 - M79.672) 03/16/2024 Calcaneal spur of left foot (ICD-10 - M77.32) 03/16/2024 Left foot pain (ICD-10 - M79.672) Plan Of Treatment No Information Insurance Providers Payer Name Payer Address Payer Phone Subscriber Number Group Number Insured Name Patient Relationship to Insured Coverage Start Date Coverage End Date [employer] [facility] [address] [place] [id number] LOI MONTANEZ Self - patient is the insured Medical (General) History Medical History History ICD Code Sleep apnea hypertension Lung Disease
[2025-02-08 19:35] LABS: Creatine Kinase 104 U/L (55-170)
[2025-02-08 19:45] LABS: NT Pro B Type Natriuretic Pept 66 pg/mL (19.9-100)
[2025-02-08 20:02] VITALS: BP 152/74; PULSE 78; RESP 17; O2SAT 98
== END 2025-02-08 20:43 | disposition home or self-care (01) ==
PROVIDERS: Physician Assistant; Emergency Provider Student in an Organized Health Care Education/Training Program; PCP Nurse Practitioner
DX: D64.9 Anemia, unspecified (principal); R60.0 Localized edema; E11.22 Type 2 diabetes mellitus with diabetic chronic kidney disease; N18.9 Chronic kidney disease, unspecified; K21.9 Gastro-esophageal reflux disease without esophagitis; I12.9 Hypertensive chronic kidney disease with stage 1 through stage 4 chronic kidney disease, or unspecified chronic kidney disease; E78.5 Hyperlipidemia, unspecified; E03.9 Hypothyroidism, unspecified; J44.9 Chronic obstructive pulmonary disease, unspecified; G47.33 Obstructive sleep apnea (adult) (pediatric); Z87.891 Personal history of nicotine dependence
CPT/HCPCS: 36415; 80048; 82550; 83735; 83880; 85025; 85610; 85730; 93971; 99284